=== PATIENT | female | born 1930 | race Two or more races ===

== ENCOUNTER 2017-04-20 20:47 | Inpatient (IN) | payer MEDICARE, MEDICAID ==
[~2017-04-20] VITALS: Ht 165.1 cm; Wt 59.0 kg
[~2017-04-20 20:47] MED LIST: ALBUTEROL SULF8.5 GM INH; METFORMIN HCL1000 M1 ORAL; ZITHROMAX250 MG ORAL
[2017-04-20] MEDS ORDERED: Acetaminophen 650 MG SUPP RECTAL ONE (21:15)
[2017-04-20] MEDS ORDERED: Tubing IV Cassette IV ONE (21:22)
[2017-04-20 21:41] LABS: HEMATOCRIT 34.6 % (37.0-47.0); HEMOGLOBIN 11.5 G/DL (12.0-16.0); MEAN CORPUSCULAR VOLUME 90 FL (80-99); PLATELET COUNT 89 K/UL (150-450); RED BLOOD COUNT 3.85 M/UL (4.20-5.40); RED CELL DISTRIBUTION WIDTH 16.4 % (11.6-14.8); WHITE BLOOD COUNT 4.7 K/UL (4.8-10.8)
[2017-04-20 21:43] LABS: BASOPHILS % (AUTO) 0.4 % (0.0-2.0); EOSINOPHILS % (AUTO) 0.1 % (0.0-3.0); MONOCYTES % (AUTO) 6.2 % (1.0-10.0); NEUTROPHILS % (AUTO) 86.3 % (45.0-75.0)
--- NOTE | 2017-04-20 21:57 | Emergency Room Report ---
History of Present Illness General Chief Complaint: Vomiting Source: Family Member, EMS Present Illness HPI The patient presents with vomiting. She's been ill for several days. She also complains about some abdominal pain. She is a poor historian and there is a language. Her. The daughters are translating. He can she's had a fever. She is in a rehabilitation facility. Chest seizures several months ago and had a cervical spine fracture. The seizure happened after she was given antibiotics for urinary tract infection. The daughter states that she's also been coughing. They deny any foul-smelling urine or diarrhea. They state that her neck pain has been better recently. The patient has a history of breast cancer postresection with some swelling in her right arm. 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 Is on dilantin for seizures and decadron. Also received lovenox injections at home. Allergies: Coded Allergies: LATEX (Verified Allergy, Unknown, 04/20/17) Patient History Past Medical History: see triage record Social History Narrative at home Last Menstrual Period: n/a Now: No Reviewed Nursing Documentation: PMH: Agreed, PSxH: Agreed Nursing Documentation-PMH Past Medical History: No History, Except For Hx Hypertension: Yes Hx Asthma: Yes Hx Diabetes: Yes Hx Seizures: Yes Review of Systems All Other Systems: negative except mentioned in HPI Physical Exam Vital Signs Date Time Temp Pulse Resp B/P (MAP) Pulse Ox O2 Delivery O2 Flow Rate FiO2 04/20/17 20:50 100.8 92 16 98/49 96 Room Air Sp02 EP Interpretation: reviewed, normal General Appearance: no apparent distress, GCS 15 - accorind to daughter - though sparse answers, Chronically Ill Head: normocephalic Eyes: bilateral eye normal inspection, bilateral eye PERRL ENT: moist mucus membranes Neck: supple - though cervical collar on, no bony tend Respiratory: lungs clear, normal breath sounds Cardiovascular #1: regular rate, rhythm Cardiovascular #2: 2+ radial (R) Gastrointestinal: normal inspection, normal bowel sounds, no mass, non- distended, guarding, tenderness - LLQ and more diffusely Genitourinary: no CVA tenderness Musculoskeletal: normal range of motion, no calf tenderness, swelling - R arm Neurologic: responsive, motor strength/tone normal, sensory intact Psychiatric: depressed affect Skin: warm/dry, other - sl edema R arm Medical Decision Making Diagnostic Impression: Primary Impression: Abdominal pain Qualified Codes: R10.9 - Unspecified abdominal pain Additional Impressions: UTI (urinary tract infection) Qualified Codes: N39.0 - Urinary tract infection, site not specified Metastatic breast cancer Vomiting Qualified Codes: R11.2 - Nausea with vomiting, unspecified Ureteral stricture Renal insufficiency ER Course The patient presents with vomiting, cough and fever. Differential includes diverticulitis, gastroenteritis, pneumonia, urinary tract infection amongst others. The patient's blood pressure initially is low and she will receive IV hydration immediately. Evaluation will be for sepsis. She will receive an EKG , chest x-ray and a CT abdomen and pelvis. Labs will be obtained including a lactate and blood cultures. A [place] will be passed to measure intake and output. The patient will receive IV hydration and Tylenol. She'll also receive Zofran. Initial low blood pressure reported as error. EKG shows sinus tachycardia. Chest x-ray shows increased weeks bilaterally and evidence of previous right wrist surgery. Labs are significant for normal white count and H&H. There's renal insufficiency of the last creatinine we have is from 5 years ago. This pyuria with hematuria. Dilantin level is low. Based on the creatinine CT was changed and IV contrast was canceled. Based on the evaluation that she's been on steroids in the past cortisol was given IV. Also the patient continue with IV hydration. Her tachycardia resolved as well as her fever. She was more comfortable. IV Rocephin was begun. CT scan showed evidence of ureteral stricture L. The patient is admitted to the hospital under the care of Dr. Mixon to a telemetry bed. Laboratory Tests Test 04/20/17 21:15 04/20/17 21:50 White Blood Count 4.7 K/UL (4.8-10.8) L Red Blood Count 3.85 M/UL (4.20-5.40) L Hemoglobin 11.5 G/DL (12.0-16.0) L Hematocrit 34.6 % (37.0-47.0) L Mean Corpuscular Volume 90 FL (80-99) Mean Corpuscular Hemoglobin 29.7 PG (27.0-31.0) Mean Corpuscular Hemoglobin Concent 33.1 G/DL (32.0-36.0) Red Cell Distribution Width 16.4 % (11.6-14.8) H Platelet Count 89 K/UL (150-450) L Mean Platelet Volume 6.7 FL (6.5-10.1) Neutrophils (%) (Auto) 86.3 % (45.0-75.0) H Lymphocytes (%) (Auto) 7.0 % (20.0-45.0) L Monocytes (%) (Auto) 6.2 % (1.0-10.0) Eosinophils (%) (Auto) 0.1 % (0.0-3.0) Basophils (%) (Auto) 0.4 % (0.0-2.0) Prothrombin Time 10.2 SEC (9.30-11.50) Prothrombin Time INR 1.0 (0.9-1.1) PTT 38 SEC (23-33) H Sodium Level 129 MMOL/L (136-145) L Potassium Level 5.1 MMOL/L (3.5-5.1) Chloride Level 99 MMOL/L (98-107) Carbon Dioxide Level 18 MMOL/L (21-32) L Anion Gap 12 mmol/L (5-15) Blood Urea Nitrogen 53 mg/dL (7-18) H Creatinine 2.3 MG/DL (0.55-1.30) H Estimate Glomerular Filtration Rate mL/min (>60) Glucose Level 238 MG/DL (74-106) H Lactic Acid Level 2.00 mmol/L (0.66-2.22) Calcium Level 8.6 MG/DL (8.5-10.1) Total Bilirubin 0.4 MG/DL (0.2-1.0) Aspartate Amino Transferase (AST) 25 U/L (15-37) Alanine Aminotransferase (ALT) 25 U/L (12-78) Alkaline Phosphatase 74 U/L (46-116) Total Creatine Kinase 87 U/L (26-308) Troponin I 0.004 ng/mL (0.000-0.056) Pro-B-Type Natriuretic Peptide 3695 pg/mL (0-125) H Total Protein 6.9 G/DL (6.4-8.2) Albumin 2.4 G/DL (3.4-5.0) L Globulin 4.5 g/dL Albumin/Globulin Ratio 0.5 (1.0-2.7) L Lipase 112 U/L (73-393) Phenytoin (Dilantin) Level 8.2 ug/mL (10-20) L Urine Color Yellow Urine Appearance Cloudy Urine pH 5 (4.5-8.0) Urine Specific [place] 1.015 (1.005-1.035) Urine Protein 3+ (NEGATIVE) H Urine Glucose (UA) Negative (NEGATIVE) Urine Ketones Negative (NEGATIVE) Urine Occult Blood 3+ (NEGATIVE) H Urine Nitrite Negative (NEGATIVE) Urine Bilirubin Negative (NEGATIVE) Urine Urobilinogen Normal MG/DL (0.0-1.0) Urine Leukocyte Esterase 3+ (NEGATIVE) H Urine RBC 0-2 /HPF (0 - 2) Urine WBC 20-30 /HPF (0 - 2) H Urine Squamous Epithelial Cells Occasional /LPF Urine Bacteria Many /HPF (NONE) H EKG Diagnostic Results Rate: tachycardiac ST Segments: no acute changes Rhythm Strip Diag. 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 No hydroureter or stone in the collecting system. These findings suggest pelvo- ureteral junction stricture. Small hiatal hernia. Mild colonic diverticulosis. Normal appendix. Sclerotic changes of the right sacrum. Differential includes Paget's disease, fibrous dysplasia, less likely etiologies cannot be excluded. Osteopenia. Moderate degenerative changes of visualized osseous structures. Small hiatal hernia. Circumferential wall thickening of the distal esophagus was nonspecific. Gastric reflux disease and esophagitis cannot be excluded. Hypodensity in the left lobe of the liver. Cannot be fully characterize due to lack of contrast. Likely cyst or hemangioma. Small calcified exophytic uterine fibroid. Last Vital Signs Date Time Temp Pulse Resp B/P (MAP) Pulse Ox O2 Delivery O2 Flow Rate FiO2 04/21/17 08:00 97.0 100 22 114/56 100 Room Air Status: improved Disposition: ADMITTED INPATIENT Condition: Serious Fadi Mederos M.D. Apr 20, 2017 21:57
[2017-04-20 21:58] LABS: ANION GAP 12 mmol/L (5-15); BLOOD UREA NITROGEN 53 mg/dL (7-18); CALCIUM 8.6 MG/DL (8.5-10.1); CARBON DIOXIDE 18 MMOL/L (21-32); CHLORIDE 99 MMOL/L (98-107); CREATININE 2.3 MG/DL (0.55-1.30); POTASSIUM 5.1 MMOL/L (3.5-5.1); SODIUM 129 MMOL/L (136-145)
[2017-04-20 22:09] LABS: ALANINE AMINOTRANSFERASE 25 U/L (12-78); ALBUMIN 2.4 G/DL (3.4-5.0); ALBUMIN/GLOBULIN RATIO 0.5 (1.0-2.7); ALKALINE PHOSPHATASE 74 U/L (46-116); ASPARTATE AMINO TRANSFERASE 25 U/L (15-37); BILIRUBIN,TOTAL 0.4 MG/DL (0.2-1.0); CREATINE KINASE 87 U/L (26-308)
[2017-04-20 22:10] LABS: APPEARANCE,URINE CLOUDY; BILIRUBIN, URINE NEGATIVE (NEGATIVE); COLOR,URINE YELLOW; GLUCOSE, URINE (UA) NEGATIVE (NEGATIVE); KETONES,URINE NEGATIVE (NEGATIVE); LEUKOCYTE ESTERASE ,URINE 3+ (NEGATIVE); NITRITE,URINE NEGATIVE (NEGATIVE); PH,URINE 5 (4.5-8.0); PROTEIN,URINE 3+ (NEGATIVE); UROBILINOGEN,URINE NORMAL MG/DL (0.0-1.0)
[2017-04-20] MEDS ORDERED: Hydrocortisone 100mg Inj IV ONE (22:15)
[2017-04-20 22:31] VITALS: BP 122/69
[2017-04-20] MEDS ORDERED: cefTRIAXone 1 GM in NS 55 ML IVPB ONE (23:15)
[2017-04-20] MEDS ORDERED: GABAPENTIN100 MG ORAL (23:53)
[2017-04-20] MEDS ORDERED: PAROXETINE HC12.5 MG ORAL (23:53)
[2017-04-20] MEDS ORDERED: TRAMADOL HCL50 MG ORAL (23:53)
[2017-04-20] MEDS ORDERED: ZOFRAN8 MG ORAL (23:53)
[2017-04-20] MEDS ORDERED: METFORMIN HCL500 M1 ORAL (23:53)
[2017-04-20] MEDS ORDERED: PHENYTOIN SODI100 MG ORAL (23:53)
[2017-04-20] MEDS ORDERED: LOVENOX10 M1 SUBQ (23:53)
[2017-04-21 00:50] VITALS: BP 91/46
[2017-04-21] MEDS ORDERED: Phenytoin 100mg cap ORAL SCH (03:30)
[2017-04-21] MEDS ORDERED: traMADol 50mg tab ORAL PRN ×2 (03:30→04:15)
[2017-04-21 04:00] VITALS: BP 98/49
[2017-04-21] MEDS: NovoLOG Insulin Flexpen SUBQ SCH ×3 (06:55→21:17)
[2017-04-21 08:00] VITALS: BP 114/56
--- NOTE | 2017-04-21 08:03 | Consultation ---
History of Present Illness General Date patient seen: Apr 21, 2017 Time patient seen: 07:30 Chief Complaint: Vomiting Referring physician: dr Mixon Reason for Consultation: inpatient management Present Illness HPI 87 y/old female with PMH of metastatic breast Ca, HTN, DM, seizure disorder, anemia, presented with vomiting. per family and a caregiver, the patient was sick for few days with fever, chills, abdominal discomfort also reported cough, productive with yellow phlegm, no wheezing, no hemoptysis Patient on chemo for metastic breast Ca ( mets to brain), last chemo about a month ago Workup in ED revealed low grade fever-100.8, tachy-105, borderline hypotension ECG with ST no acute ischemic changes troponin negative , no leukocytosis, lactic acid-2.0 evidence of renal insufficiency with BUN- 53 and creat-2. glucose -238 UA grossly positive for UTI r CXR with bilateral interstitial disease, possible acute component pro BNP -3695 HH -11.5/34.6 CT A/P revealed Hypodense lesion in the left lower liver, difficult to characterize without IV contrast material. Dilated pelvis and calyces of the lower pole the left kidney. This was consistent with obstruction but with no calculi, may represent a ureteropelvic junction obstruction of the lower pole of a duplicated system. Reflux was also possible as an etiology Sclerosis of the right side of the sacrum. Possibilities include Padget's disease, fibrous dysplasia, or malignancy. Bone scan may be helpful for better evaluation. patient was admitted for further management Allergies: Coded Allergies: LATEX (Verified Allergy, Unknown, 04/20/17) Medication History Scheduled Enoxaparin* (Lovenox*), 60 MG SUBQ DAILY, (Reported) Gabapentin* (Gabapentin*), 100 MG ORAL BID, (Reported) Metformin Hcl* (Metformin Hcl*), 500 MG ORAL TWICE A DAY, (Reported) Paroxetine Hcl* (Paroxetine Hcl*), 20 MG ORAL DAILY, (Reported) Phenytoin Sodium Extended* (Phenytoin Sodium Extended*), 400 MG ORAL BEDTIME, ( Reported) Scheduled PRN Ondansetron Hcl* (Zofran*), 8 MG ORAL Q6H PRN for Nausea & Vomiting, (Reported) Tramadol Hcl* (Ultram*), 50 MG ORAL BID PRN for For Pain, (Reported) Discontinued Medications Albuterol Sulfate* (Albuterol Sulfate Mdi*), 2 PUFF INH Q4H Discontinued Reason: Pt stopped taking med Azithromycin* (Zithromax*), 250 MG ORAL DAILY Discontinued Reason: Pt stopped taking med Metformin Hcl* (Metformin Hcl*), 1,000 MG ORAL BID, (Reported) Discontinued Reason: Pt stopped taking med Patient History History Provided By: Family Member, Significant Other Healthcare decision maker Resuscitation status Full Code Advanced Directive on File Past Medical/Surgical History Past Medical/Surgical History: (1) Metastatic breast cancer Review of Systems ROS Narrative unable to obtain due to patient health status Physical Exam General Appearance: no apparent distress, other - elderly bedridden shaking Farsi speaking female Lines, tubes and drains: peripheral HEENT: normocephalic, atraumatic, anicteric, mucous membranes moist Neck: supple, normal inspection Respiratory/Chest: lungs clear, no respiratory distress, no accessory muscle use Cardiovascular/Chest: normal rate, regular rhythm - SR on tele , no JVD Abdomen: normal bowel sounds, non tender, soft Extremities: no calf tenderness, normal capillary refill Skin Exam: other - cold fingers Neurologic: alert Musculoskeletal: atrophy - BLE Last 24 Hour Vital Signs Date Time Temp Pulse Resp B/P (MAP) Pulse Ox O2 Delivery O2 Flow Rate FiO2 04/21/17 04:00 Room Air 04/21/17 04:00 95 04/21/17 04:00 97.2 98 18 98/49 99 04/21/17 02:19 96 04/21/17 01:40 98.4 99 23 91/46 99 Room Air 04/21/17 00:50 98.4 99 23 91/46 99 Room Air 04/20/17 22:31 100.0 105 24 122/69 99 Room Air 04/20/17 21:54 100.0 04/20/17 20:50 100.8 92 16 98/49 96 Room Air Intake and Output 04/20/17 04/21/17 19:00 07:00 Intake Total 1259 ml Output Total 1420 ml Balance -161 ml Intake IV Total 1259 ml Output Urine Total 1420 ml Laboratory Tests Test 04/20/17 21:15 04/20/17 21:50 White Blood Count 4.7 K/UL (4.8-10.8) L Red Blood Count 3.85 M/UL (4.20-5.40) L Hemoglobin 11.5 G/DL (12.0-16.0) L Hematocrit 34.6 % (37.0-47.0) L Mean Corpuscular Volume 90 FL (80-99) Mean Corpuscular Hemoglobin 29.7 PG (27.0-31.0) Mean Corpuscular Hemoglobin Concent 33.1 G/DL (32.0-36.0) Red Cell Distribution Width 16.4 % (11.6-14.8) H Platelet Count 89 K/UL (150-450) L Mean Platelet Volume 6.7 FL (6.5-10.1) Neutrophils (%) (Auto) 86.3 % (45.0-75.0) H Lymphocytes (%) (Auto) 7.0 % (20.0-45.0) L Monocytes (%) (Auto) 6.2 % (1.0-10.0) Eosinophils (%) (Auto) 0.1 % (0.0-3.0) Basophils (%) (Auto) 0.4 % (0.0-2.0) Prothrombin Time 10.2 SEC (9.30-11.50) Prothromb Time International Ratio 1.0 (0.9-1.1) Activated Partial Thromboplast Time 38 SEC (23-33) H Sodium Level 129 MMOL/L (136-145) L Potassium Level 5.1 MMOL/L (3.5-5.1) Chloride Level 99 MMOL/L (98-107) Carbon Dioxide Level 18 MMOL/L (21-32) L Anion Gap 12 mmol/L (5-15) Blood Urea Nitrogen 53 mg/dL (7-18) H Creatinine 2.3 MG/DL (0.55-1.30) H Estimat Glomerular Filtration Rate mL/min (>60) Glucose Level 238 MG/DL (74-106) H Lactic Acid Level 2.00 mmol/L (0.66-2.22) Calcium Level 8.6 MG/DL (8.5-10.1) Total Bilirubin 0.4 MG/DL (0.2-1.0) Aspartate Amino Transf (AST/SGOT) 25 U/L (15-37) Alanine Aminotransferase (ALT/SGPT) 25 U/L (12-78) Alkaline Phosphatase 74 U/L (46-116) Total Creatine Kinase 87 U/L (26-308) Troponin I 0.004 ng/mL (0.000-0.056) Pro-B-Type Natriuretic Peptide 3695 pg/mL (0-125) H Total Protein 6.9 G/DL (6.4-8.2) Albumin 2.4 G/DL (3.4-5.0) L Globulin 4.5 g/dL Albumin/Globulin Ratio 0.5 (1.0-2.7) L Lipase 112 U/L (73-393) Phenytoin (Dilantin) Level 8.2 ug/mL (10-20) L Urine Color Yellow Urine Appearance Cloudy Urine pH 5 (4.5-8.0) Urine Specific [place] 1.015 (1.005-1.035) Urine Protein 3+ (NEGATIVE) H Urine Glucose (UA) Negative (NEGATIVE) Urine Ketones Negative (NEGATIVE) Urine Occult Blood 3+ (NEGATIVE) H Urine Nitrite Negative (NEGATIVE) Urine Bilirubin Negative (NEGATIVE) Urine Urobilinogen Normal MG/DL (0.0-1.0) Urine Leukocyte Esterase 3+ (NEGATIVE) H Urine RBC 0-2 /HPF (0 - 2) Urine WBC 20-30 /HPF (0 - 2) H Urine Squamous Epithelial Cells Occasional /LPF Urine Bacteria Many /HPF (NONE) H Height (Feet): 5 Height (Inches): 5.00 Weight (Pounds): 130 Medications Current Medications Medications (Trade) Dose Ordered Sig/Stefan Route PRN Reason Start Time Stop Time Status Last Admin Dose Admin Acetaminophen (Tylenol) 650 mg Q6H PRN ORAL Mild Pain/Temp > 100.5 04/21/17 03:30 05/21/17 03:29 Ceftriaxone Sodium 1 gm/ Dextrose 55 ml @ 110 mls/hr Q24H IVPB 04/21/17 21:00 04/28/17 20:59 Dextrose (Dextrose 50%) STAT PRN IV Hypoglycemia 04/21/17 03:45 05/21/17 03:44 Enoxaparin Sodium (Lovenox) 60 mg DAILY SUBQ 04/21/17 09:00 05/21/17 08:59 Gabapentin (Neurontin) 100 mg BID ORAL 04/21/17 09:00 05/21/17 08:59 Insulin Aspart (NovoLOG) BEFORE MEALS AND HS SUBQ 04/21/17 06:30 05/21/17 06:29 04/21/17 06:55 Metformin HCl (Glucophage) 500 mg TWICE A DAY ORAL 04/21/17 09:00 05/21/17 08:59 UNV Ondansetron HCl (Zofran) 4 mg Q6H PRN IVP Nausea & Vomiting 04/21/17 03:30 05/21/17 03:29 Paroxetine HCl (Paxil) 20 mg DAILY ORAL 04/21/17 09:00 05/21/17 08:59 Phenytoin (Dilantin) 400 mg BEDTIME ORAL 04/21/17 03:30 05/21/17 03:29 04/21/17 04:17 Sodium Chloride 1,000 ml @ 75 mls/hr [id number] IV 04/21/17 03:30 05/21/17 03:29 04/21/17 04:17 Tramadol HCl (Ultram) 50 mg Q4HR PRN ORAL Moderate Breakthru Pain (5-7) 04/21/17 04:15 04/28/17 04:14 Assessment/Plan Assessment/Plan ASSESSMENT possible sepsis UTI ureteral/ureteropelvic junction obstruction hyponatremia LIYAH vs CRI possible dehydration due to intractable vomiting seizure disorder metastatic breast Ca with emets to brain DM hypotension with hx of HTN anemia left lobe liver lesion sclerosis of sacrum PLAN OF CARE tele IVF empiric abx fup with cx ID consult-per MD discretion monitor renal parameters, lytes, correct as needed avoid nephrotoxic hypo Na possibly due to dehydration ?LIYAH vs ? CRI ( due to HTN and DM) seizure precautions, continue Dilantin PT/OT DVT prophylaxis BP monitor, no need for a/HTN at this time BS management with SS of insulin ( hold metformin due to elevated creat) Bowel regimen monitor HH, if trend down, initiate anemia work up renal US consider urology eval - per PMD ? bone scan - per PMD discretion diet as tolerated, a/emetic prn DVT , GI prophylaxis PT/OT transfer to [facility] floor case discussed and evaluated by supervising physician Sascha (Saranrodolfo),Betsy BARRAZA Apr 21, 2017 08:03
--- NOTE | 2017-04-21 08:44 | Diagnostic Imaging Report ---
Indication: Reason For Exam: ABD PAIN Technique: CT scan of the abdomen and pelvis was performed from the diaphragms to the symphysis pubis with oral contrast material. No IV contrast was administereddue to elevated creatinine. 5 mm sections were generated. Axial, coronal, and sagittal images are presented. Dose: Total Dose Length Product - DLP [address] Dose Index - CTDIvol(s) 15.47 mGy. Automated exposure control was utilized for dose reduction. Comparison: None Findings: Lack of IV contrast material limits evaluation. There is a focal low density lesion in the left lobe of the liver, 2 measuring 19 mm. This is difficult to characterize without contrast material. The remainder of the liver is unremarkable. The gallbladder is normal. The spleen is normal. The pancreas is unremarkable. There is some enlargement of the left adrenal gland slightly. Right adrenal gland is normal. Aorta is calcified. Retroperitoneum is free of adenopathy. The right kidney is unremarkable. Left kidney demonstrates a large extrarenal pelvis of the lower portion of a duplicated collecting system. Dilated calyces are also present in the lower pole. The upper pole is normal. The appendix is normal. There are colonic diverticula. The bladder is collapsed by [place] catheter. There is a calcified fibroid in the uterus. No pelvic fluid. Degenerative changes noted in the spine. A hiatal hernia. There is sclerosis in the right side of the sacrum. Impression: Hypodense lesion in the left lower liver, difficult to characterize without IV contrast material. Correlation with ultrasound suggested. Lateral hernia. Degenerative changes in the spine. Dilated pelvis and calyces of the lower pole the left kidney. This is consistent with obstruction but with no calculi, this may represent a ureteropelvic junction obstruction of the lower pole of a duplicated system. Reflux is also possible as an etiology if it is a complete duplication. Calcified fibroid uterus. Sclerosis of the right side of the sacrum. Possibilities include Padget's disease, fibrous dysplasia, or malignancy. Bone scan may be helpful for better evaluation. The above report is concordant with preliminary reading by [employer] . The CT scanner at [facility] is accredited by the [employer] and the scans are performed using protocols designed to limit radiation exposure to as low as reasonably achievable to attain images of sufficient resolution adequate for diagnostic evaluation.
[2017-04-21] MEDS ORDERED: metFORMIN 500mg tab ORAL SCH (09:00)
[2017-04-21] MEDS ORDERED: PARoxetine 20mg tab ORAL SCH (09:00)
[2017-04-21] MEDS ORDERED: Enoxaparin 60mg Inj SUBQ SCH (09:00)
--- NOTE | 2017-04-21 09:27 | Diagnostic Imaging Report ---
Indication: Reason For Exam: ABD PAIN Technique: XRAY Chest 1v Comparison:08/30/2013 Findings: The heart is normal in size. The aorta is calcified. Bilateral interstitial disease and bronchial wall thickening is noted. No pleural fluid. Pulmonary vascularity is normal. Degenerative changes present in the spine. Clips are noted in the right axilla from previous surgery. Impression: Bilateral interstitial disease. Some of this is chronic. Whether there is an acute component or merely progressive chronic disease is uncertain. Atherosclerotic change. Previous surgery on the right. Degenerative changes in the spine.
[2017-04-21 12:00] VITALS: BP 110/46
[2017-04-21] MEDS ORDERED: Sodium Chloride 500ML 550 ML IV SCH (12:30)
--- NOTE | 2017-04-21 12:35 | History & Physical ---
History and Physical History & Physicial Dictated for Int Med-Dr Mixon no. [id number]. HAMLET AMAYA Apr 21, 2017 12:35
[2017-04-21 13:39] LABS: HEMOGLOBIN 10.5 G/DL (12.0-16.0); MEAN CORPUSCULAR VOLUME 91 FL (80-99); PLATELET COUNT 79 K/UL (150-450); RED BLOOD COUNT 3.51 M/UL (4.20-5.40); RED CELL DISTRIBUTION WIDTH 16.8 % (11.6-14.8); WHITE BLOOD COUNT 4.9 K/UL (4.8-10.8)
--- NOTE | 2017-04-21 13:46 | Cardiac Electrophysiology PN ---
Subjective Subjective [id number] Objective Last 24 Hour Vital Signs Date Time Temp Pulse Resp B/P (MAP) Pulse Ox O2 Delivery O2 Flow Rate FiO2 04/21/17 12:00 97.6 101 21 110/46 97 Room Air 04/21/17 08:00 97 04/21/17 08:00 97.0 100 22 114/56 100 Room Air 04/21/17 04:00 Room Air 04/21/17 04:00 95 04/21/17 04:00 97.2 98 18 98/49 99 04/21/17 02:19 96 04/21/17 01:40 98.4 99 23 91/46 99 Room Air 04/21/17 00:50 98.4 99 23 91/46 99 Room Air 04/20/17 22:31 100.0 105 24 122/69 99 Room Air 04/20/17 21:54 100.0 04/20/17 20:50 100.8 92 16 98/49 96 Room Air Intake and Output 04/20/17 04/21/17 19:00 07:00 Intake Total 1259 ml Output Total 1420 ml Balance -161 ml Intake IV Total 1259 ml Output Urine Total 1420 ml Laboratory Tests Test 04/20/17 21:15 04/20/17 21:50 04/21/17 13:15 White Blood Count 4.7 K/UL (4.8-10.8) L 4.9 K/UL (4.8-10.8) Red Blood Count 3.85 M/UL (4.20-5.40) L 3.51 M/UL (4.20-5.40) L Hemoglobin 11.5 G/DL (12.0-16.0) L 10.5 G/DL (12.0-16.0) L Hematocrit 34.6 % (37.0-47.0) L 32.0 % (37.0-47.0) L Mean Corpuscular Volume 90 FL (80-99) 91 FL (80-99) Mean Corpuscular Hemoglobin 29.7 PG (27.0-31.0) 30.0 PG (27.0-31.0) Mean Corpuscular Hemoglobin Concent 33.1 G/DL (32.0-36.0) 32.9 G/DL (32.0-36.0) Red Cell Distribution Width 16.4 % (11.6-14.8) H 16.8 % (11.6-14.8) H Platelet Count 89 K/UL (150-450) L 79 K/UL (150-450) L Mean Platelet Volume 6.7 FL (6.5-10.1) 7.5 FL (6.5-10.1) Neutrophils (%) (Auto) 86.3 % (45.0-75.0) H % (45.0-75.0) Lymphocytes (%) (Auto) 7.0 % (20.0-45.0) L % (20.0-45.0) Monocytes (%) (Auto) 6.2 % (1.0-10.0) % (1.0-10.0) Eosinophils (%) (Auto) 0.1 % (0.0-3.0) % (0.0-3.0) Basophils (%) (Auto) 0.4 % (0.0-2.0) % (0.0-2.0) Prothrombin Time 10.2 SEC (9.30-11.50) Prothromb Time International Ratio 1.0 (0.9-1.1) Activated Partial Thromboplast Time 38 SEC (23-33) H Sodium Level 129 MMOL/L (136-145) L Potassium Level 5.1 MMOL/L (3.5-5.1) Chloride Level 99 MMOL/L (98-107) Carbon Dioxide Level 18 MMOL/L (21-32) L Anion Gap 12 mmol/L (5-15) Blood Urea Nitrogen 53 mg/dL (7-18) H Creatinine 2.3 MG/DL (0.55-1.30) H Estimat Glomerular Filtration Rate mL/min (>60) Glucose Level 238 MG/DL (74-106) H Lactic Acid Level 2.00 mmol/L (0.66-2.22) Calcium Level 8.6 MG/DL (8.5-10.1) Total Bilirubin 0.4 MG/DL (0.2-1.0) Aspartate Amino Transf (AST/SGOT) 25 U/L (15-37) Alanine Aminotransferase (ALT/SGPT) 25 U/L (12-78) Alkaline Phosphatase 74 U/L (46-116) Total Creatine Kinase 87 U/L (26-308) Troponin I 0.004 ng/mL (0.000-0.056) Pro-B-Type Natriuretic Peptide 3695 pg/mL (0-125) H Total Protein 6.9 G/DL (6.4-8.2) Albumin 2.4 G/DL (3.4-5.0) L Globulin 4.5 g/dL Albumin/Globulin Ratio 0.5 (1.0-2.7) L Lipase 112 U/L (73-393) Phenytoin (Dilantin) Level 8.2 ug/mL (10-20) L Urine Color Yellow Urine Appearance Cloudy Urine pH 5 (4.5-8.0) Urine Specific [place] 1.015 (1.005-1.035) Urine Protein 3+ (NEGATIVE) H Urine Glucose (UA) Negative (NEGATIVE) Urine Ketones Negative (NEGATIVE) Urine Occult Blood 3+ (NEGATIVE) H Urine Nitrite Negative (NEGATIVE) Urine Bilirubin Negative (NEGATIVE) Urine Urobilinogen Normal MG/DL (0.0-1.0) Urine Leukocyte Esterase 3+ (NEGATIVE) H Urine RBC 0-2 /HPF (0 - 2) Urine WBC 20-30 /HPF (0 - 2) H Urine Squamous Epithelial Cells Occasional /LPF Urine Bacteria Many /HPF (NONE) H Neutrophils % (Manual) Pending Lymphocytes % (Manual) Pending Platelet Estimate Pending Platelet Morphology Pending Microbiology Date/Time Source Procedure Growth Status 04/20/17 21:50 Urine,Clean Catch Urine Culture - Preliminary Gram Negative Andrew Resulted PENELOPE CORONA Apr 21, 2017 13:46
[2017-04-21 14:06] LABS: ALANINE AMINOTRANSFERASE 19 U/L (12-78); ALBUMIN 2.1 G/DL (3.4-5.0); ALBUMIN/GLOBULIN RATIO 0.5 (1.0-2.7); ALKALINE PHOSPHATASE 65 U/L (46-116); ANION GAP 11 mmol/L (5-15); ASPARTATE AMINO TRANSFERASE 22 U/L (15-37); BILIRUBIN,TOTAL 0.2 MG/DL (0.2-1.0); BLOOD UREA NITROGEN 44 mg/dL (7-18); CALCIUM 8.1 MG/DL (8.5-10.1); CARBON DIOXIDE 20 MMOL/L (21-32); CHLORIDE 106 MMOL/L (98-107); CREATININE 1.8 MG/DL (0.55-1.30); PHOSPHORUS 3.4 MG/DL (2.5-4.9); POTASSIUM 5.1 MMOL/L (3.5-5.1); SODIUM 137 MMOL/L (136-145)
[2017-04-21 16:00] VITALS: BP 113/67
--- NOTE | 2017-04-21 16:36 | Consultation ---
Consult Note Consult Note asked to eval for renal failure The patient presents with vomiting. She's been ill for several days. She also complains about some abdominal pain. She is a poor historian and there is a language. Her. The daughters are translating. He can she's had a fever. She is in a rehabilitation facility. Chest seizures several months ago and had a cervical spine fracture. The seizure happened after she was given antibiotics for urinary tract infection. The daughter states that she's also been coughing. They deny any foul-smelling urine or diarrhea. They state that her neck pain has been better recently. The patient has a history of breast cancer postresection with some swelling in her right arm. She has brain metastasis from that. 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
[2017-04-21 20:00] VITALS: BP 123/57
[2017-04-21] MEDS ORDERED: cefTRIAXone 1 GM in D5W 55 ML IVPB SCH (21:00)
--- NOTE | 2017-04-21 21:00 | Consultation ---
DATE OF CONSULTATION: 04/21/2017 CARDIOLOGY CONSULTATION CONSULTING PHYSICIAN: Aime Tripp M.D. REFERRING PHYSICIAN: Keon Mixon M.D. REASON FOR CONSULTATION: Tachycardia. HISTORY OF PRESENT ILLNESS: The patient is an 87-year-old [place] lady with history of hypertension, diabetes, asthma, and seizure disorder, who was brought to the emergency room for vomiting and feeling ill for several days including abdominal pain. The patient is in a rehab facility. The patient had a seizure and had cervical spine fracture months ago. The patient was admitted and was tachycardic at 100 to 113 beats per minute, but sinus tachycardia. Cardiology consultation was obtained for further evaluation. PAST MEDICAL HISTORY: As mentioned above. SOCIAL HISTORY: She lives in a alf. Does not smoke or drink alcohol. FAMILY HISTORY: Noncontributory. REVIEW OF SYSTEMS: Negative other than what was mentioned in the history of present illness. PHYSICAL EXAMINATION: VITAL SIGNS: Blood pressure is 110/46, pulse 101, respirations 21, and temperature 97.6 degrees. HEAD AND NECK: Shows no JVD. LUNGS: Coarse rhonchi. CARDIOVASCULAR: Regular S1 and S2. Mildly tachycardic. ABDOMEN: Soft. EXTREMITIES: No pitting edema. LABORATORY DATA: White count of 4.9, hemoglobin 10.5, hematocrit 32, and platelet count of 79,000. Sodium 129, potassium 5.1, BUN of 53, creatinine 2.3, and glucose of 280. Troponin is negative. BNP 3695. ASSESSMENT AND PLAN: 1. Tachycardia due to sinus tachycardia. There is no evidence of atrial fibrillation. We will get an echocardiogram to evaluate for ejection fraction and wall motion abnormality. 2. History of hypertension, currently off antihypertensive agents. 3. History of seizures, on Neurontin. 4. Renal failure. 5. Hyponatremia. Further evaluation by Nephrology. Thank you very much, Dr. Mixon, for allowing me to participate in the care of this patient. Please do not hesitate to contact me for any questions regarding my evaluation. Aime Tripp M.D. DR: Whitney JOB#: [id number] CC:
[2017-04-21] MEDS: Phenytoin 100mg cap ORAL SCH (21:01)
[2017-04-21] MEDS: cefTRIAXone 1 GM in D5W 55 ML IVPB SCH (21:02)
--- NOTE | 2017-04-21 21:15 | History and Physical Report ---
DATE OF ADMISSION: 04/20/2017 CHIEF COMPLAINT: The patient is an 87-year-old white female who presents with chief complaint of fever, chills, nausea, vomiting, and diarrhea. HISTORY OF PRESENT ILLNESS: It began three days prior to admission. The patient began to have subjective fevers and chills. The patient has history of right breast cancer approximately 15 years ago. The patient was recently diagnosed with brain metastases. This is presumed to be recurrence of breast cancer. The patient herself is unable to contribute much to the history and physical. Much of the history and physical is obtained from the patient's caregiver who is at the bedside. I also spoke with the patient's daughter, Daljit, over the telephone. According to the daughter, the patient began to experience subjective fevers and chills on 04/19/2017. The patient then began to experience nausea and vomiting. The patient had severe decreased oral intake. The patient also had cough which is productive of brownish sputum. The patient had diarrhea starting yesterday, 04/20/2017. This may be secondary to [id number] constipation medicine that the patient had been taking. The patient presented to [facility]. The patient was found to be severely weak and debilitated. The patient was admitted for nausea, vomiting, diarrhea, and fever. PAST MEDICAL HISTORY: Significant for: 1. Right breast cancer, diagnosed 15 years previously with current metastases to the brain. 2. Diabetes, type 2. 3. Hypertension. 4. History of seizure disorder. PAST SURGICAL HISTORY: Significant for right mastectomy. CURRENT MEDICATIONS: 1. Lovenox 60 mg subcutaneously daily. 2. Gabapentin 100 mg p.o. twice daily. 3. Metformin 500 mg p.o. twice daily. 4. Zofran 4 mg p.o. q.6 h. 5. Paxil 20 mg p.o. daily. 6. Dilantin 400 mg p.o. nightly. 7. Tramadol 50 mg p.o. twice daily p.r.n. ALLERGIES: To latex. SOCIAL HISTORY: The patient is and lives with her family. The patient denies tobacco or alcohol use. REVIEW OF SYSTEMS: CONSTITUTIONAL: The patient complains of fevers and chills as above. The patient complains of generalized weakness. HEENT: The patient denies ear or throat pain. The patient denies headache. CARDIOVASCULAR: The patient denies palpitations or chest pain. CHEST: The patient complains of cough as above. The patient denies wheezes. ABDOMEN: The patient complains of nausea, vomiting, and diarrhea as above. The patient denies constipation. NEUROMUSCULAR: The patient complains of generalized weakness. The patient has history of seizures. GENITOURINARY: The patient denies dysuria. The patient does complain of urinary obstruction. PHYSICAL EXAMINATION: VITAL SIGNS: Temperature 98.4, respirations 23, pulse 99, and blood pressure 91/46. GENERAL: The patient is a well-developed, well-nourished white female, who is drowsy, but arousable. HEENT: Eyes, pupils are equal and responsive to light and accommodation. Extraocular movements are intact. NECK: Supple without lymphadenopathy. CHEST: Lungs are clear to auscultation bilaterally without wheezes or rales. CARDIOVASCULAR: Regular rate. S1 and S2 are normal without murmurs, rubs, or gallops. ABDOMEN: Soft, nontender, nondistended. Positive bowel sounds. No evidence of hepatosplenomegaly. Currently, no rebound or guarding noted. RECTAL: Refused. GENITAL: Refused. EXTREMITIES: Negative for clubbing, cyanosis, or edema. NEUROLOGIC: Cranial nerves II through XII are grossly intact without focal deficits. LABORATORY STUDIES: WBC 4.7, hemoglobin 11.5, hematocrit 34.6, and platelets 89,000. Sodium 129, potassium 5.1, chloride 99, CO2 18, BUN 53, creatinine 2.3, and glucose 238. BNP elevated at 3695. Troponin normal at 0.004. CT scan of the abdomen revealed dilated pelvis and calyces of the left kidney. Urinalysis showed 3+ protein, 3+ occult blood, and 3+ leukocyte esterase with 20-30 WBC. ASSESSMENT: This is an 87-year-old white female with: 1. Urinary tract infection. 2. Renal failure. 3. Left kidney hydronephrosis. 4. Congestive heart failure. 5. Abdominal pain. 6. Fever. 7. Nausea with vomiting. 8. Diabetes, type 2. 9. Seizure disorder. 10. History of right breast cancer with metastases to the brain. TREATMENT: 1. Renal failure. Nephrology consultation has been obtained with Dr. Florentino. This may be secondary to dehydration versus urinary obstruction. We will follow recommendations of Nephrology. 2. Urinary tract infection. The patient has been started empirically on Rocephin. Urine culture and sensitivity is pending. 3. Congestive heart failure. Cardiology consultation has been obtained with Dr. Aime Tripp. Congestive heart failure may be secondary to radiation therapy. 4. Abdominal pain. This is secondary to urinary tract infection as above. 5. Fevers, chills. 6. Nausea with vomiting. Gastroenterology consultation has been obtained with Dr. Escobar. 7. Diabetes, type 2. Continue NovoLog sliding scale. 8. History of seizure disorder. Continue Dilantin as above. 9. Right breast cancer with metastases to the brain. The patient is currently undergoing radiation therapy at [facility]. Lalo Edmondson M.D. DR: Lee JOB#: [id number] CC:
[2017-04-22] VITALS: BP 106/48
[2017-04-22 04:00] VITALS: BP 101/44
[2017-04-22] MEDS: traMADol 50mg tab ORAL PRN ×2 (04:17→08:53)
[2017-04-22 04:49] LABS: HEMATOCRIT 29.9 % (37.0-47.0); HEMOGLOBIN 9.7 G/DL (12.0-16.0); MEAN CORPUSCULAR VOLUME 89 FL (80-99); PLATELET COUNT 80 K/UL (150-450); RED BLOOD COUNT 3.34 M/UL (4.20-5.40); RED CELL DISTRIBUTION WIDTH 16.7 % (11.6-14.8); WHITE BLOOD COUNT 4.2 K/UL (4.8-10.8)
[2017-04-22 05:19] LABS: ALANINE AMINOTRANSFERASE 15 U/L (12-78); ALBUMIN 1.9 G/DL (3.4-5.0); ALBUMIN/GLOBULIN RATIO 0.5 (1.0-2.7); ALKALINE PHOSPHATASE 59 U/L (46-116); ANION GAP 10 mmol/L (5-15); ASPARTATE AMINO TRANSFERASE 17 U/L (15-37); BILIRUBIN,TOTAL 0.3 MG/DL (0.2-1.0); BLOOD UREA NITROGEN 30 mg/dL (7-18); CALCIUM 7.9 MG/DL (8.5-10.1); CARBON DIOXIDE 21 MMOL/L (21-32); CHLORIDE 102 MMOL/L (98-107); CREATININE 1.3 MG/DL (0.55-1.30); FERRITIN 574 NG/ML (8-388); GAMMA GLUTAMYL TRANSPEPTIDASE 51 U/L (5-85); PHOSPHORUS 2.3 MG/DL (2.5-4.9); POTASSIUM 4.4 MMOL/L (3.5-5.1); SODIUM 132 MMOL/L (136-145)
[2017-04-22] MEDS: NovoLOG Insulin Flexpen SUBQ SCH ×4 (06:18→21:00)
[2017-04-22 08:00] VITALS: BP 108/53
[2017-04-22] MEDS: Enoxaparin 60mg Inj SUBQ SCH (08:53)
[2017-04-22] MEDS ORDERED: PARoxetine 10mg tab ORAL SCH ×2 (09:00)
--- NOTE | 2017-04-22 10:12 | Pulmonology Progress Note ---
Assessment/Plan Assessment/Plan ASSESSMENT possible sepsis UTI C dif colitis L kidney hydronephrosis hyponatremia LIYAH -improving possible dehydration due to intractable vomiting seizure disorder metastatic breast Ca with emets to brain DM hypotension with hx of HTN anemia left lobe liver lesion sclerosis of sacrum PLAN OF CARE MS floor gentle IVF start Flagyl, empiric abx for UTI and fup with cx ID consult-per MD discretion monitor renal parameters, lytes, creat trending dowen correct lytes as needed ( replace Mg and P today) avoid nephrotoxic nephro follows seizure precautions, continue Dilantin PT/OT DVT prophylaxis BP monitor, no need for a/HTN at this time cardio follows troponin x 2 negative BS management with SS of insulin prn, [id number] ( hold metformin due to elevated creat) Bowel regimen monitor HH, transfuse prn, anemia work up renal US consider urology eval - per PMD ? bone scan - per PMD discretion diet as tolerated, a/emetic prn DVT , GI prophylaxis PT/OT case discussed and evaluated by supervising physician Subjective Allergies: Coded Allergies: LATEX (Verified Allergy, Unknown, 04/20/17) Subjective no chills stool cx + C dif HH trending down creat trending down more awake, smiling low Mg and P Objective Last 24 Hour Vital Signs Date Time Temp Pulse Resp B/P (MAP) Pulse Ox O2 Delivery O2 Flow Rate FiO2 04/22/17 08:00 98.2 100 18 108/53 99 Room Air 04/22/17 04:00 Room Air 04/22/17 04:00 98.4 107 18 101/44 96 04/22/17 00:00 98.2 104 20 106/48 97 04/22/17 00:00 Room Air 04/21/17 20:00 99.0 105 20 123/57 98 04/21/17 20:00 Room Air 04/21/17 16:00 97.3 114 22 113/67 97 Room Air 04/21/17 12:00 102 04/21/17 12:00 97.6 101 21 110/46 97 Room Air Intake and Output 04/21/17 04/22/17 19:00 07:00 Intake Total 890 ml 965 ml Output Total 700 ml 1200 ml Balance 190 ml -235 ml Intake Oral 240 ml 360 ml IV Total 650 ml 605 ml Output Urine Total 700 ml 1200 ml # Bowel Movements 2 2 Objective General Appearance: no apparent distress, elderly weak bedridden Farsi speaking female Lines, tubes and drains: peripheral HEENT: normocephalic, atraumatic, anicteric, mucous membranes moist Neck: supple, normal inspection Respiratory/Chest: lungs clear, no respiratory distress, no accessory muscle use Cardiovascular/Chest: normal rate, no JVD Abdomen: normal bowel sounds, non tender, soft Extremities: no calf tenderness, normal capillary refill Neurologic: alert, responsive, Musculoskeletal: atrophy - BLE Microbiology Date/Time Source Procedure Growth Status 04/20/17 21:15 Blood Blood Culture - Preliminary NO GROWTH AFTER 24 HOURS Resulted 04/20/17 21:00 Blood Blood Culture - Preliminary NO GROWTH AFTER 24 HOURS Resulted 04/21/17 18:40 Stool Clostridium difficile Toxin Assay - Final Complete 04/20/17 21:50 Urine,Clean Catch Urine Culture - Preliminary Gram Negative Andrew Resulted Laboratory Tests 04/21/17 13:15: White Blood Count 4.9, Red Blood Count 3.51L, Hemoglobin 10.5L, Hematocrit 32.0L , Mean Corpuscular Volume 91, Mean Corpuscular Hemoglobin 30.0, Mean Corpuscular Hemoglobin Concent 32.9, Red Cell Distribution Width 16.8H, Platelet Count 79L, Mean Platelet Volume 7.5, Neutrophils (%) (Auto) , Lymphocytes (%) (Auto) , Monocytes (%) (Auto) , Eosinophils (%) (Auto) , Basophils (%) (Auto) , Differential Total Cells Counted 100, Neutrophils % ( Manual) 79H, Lymphocytes % (Manual) 15L, Monocytes % (Manual) 3, Eosinophils % ( Manual) 0, Basophils % (Manual) 1, Band Neutrophils 2, Platelet Estimate DecreasedL, Platelet Morphology Normal, Hypochromasia 1+, Anisocytosis 1+, Sodium Level 137, Potassium Level 5.1, Chloride Level 106, Carbon Dioxide Level 20L, Anion Gap 11, Blood Urea Nitrogen 44H, Creatinine 1.8H, Estimat Glomerular Filtration Rate , Glucose Level 171H, Calcium Level 8.1L, Phosphorus Level 3.4, Magnesium Level 1.9, Total Bilirubin 0.2, Aspartate Amino Transf (AST/SGOT) 22, Alanine Aminotransferase (ALT/SGPT) 19, Alkaline Phosphatase 65, C-Reactive Protein, Quantitative > 70.0H, Total Protein 6.2L, Albumin 2.1L, Globulin 4.1, Albumin/Globulin Ratio 0.5L 04/22/17 04:20: White Blood Count 4.2L, Red Blood Count 3.34L, Hemoglobin 9.7L, Hematocrit 29.9L , Mean Corpuscular Volume 89, Mean Corpuscular Hemoglobin 28.9, Mean Corpuscular Hemoglobin Concent 32.4, Red Cell Distribution Width 16.7H, Platelet Count 80L, Mean Platelet Volume 6.2L, Neutrophils (%) (Auto) , Lymphocytes (%) (Auto) , Monocytes (%) (Auto) , Eosinophils (%) (Auto) , Basophils (%) (Auto) , Differential Total Cells Counted 100, Neutrophils % ( Manual) 74, Lymphocytes % (Manual) 21, Monocytes % (Manual) 5, Eosinophils % ( Manual) 0, Basophils % (Manual) 0, Band Neutrophils 0, Platelet Estimate DecreasedL, Platelet Morphology Normal, Sodium Level 132L, Potassium Level 4.4, Chloride Level 102, Carbon Dioxide Level 21, Anion Gap 10, Blood Urea Nitrogen 30H, Creatinine 1.3, Estimat Glomerular Filtration Rate , Glucose Level 165H, Calcium Level 7.9L, Phosphorus Level 2.3L, Magnesium Level 1.6L, Total Bilirubin 0.3, Aspartate Amino Transf (AST/SGOT) 17, Alanine Aminotransferase ( ALT/SGPT) 15, Alkaline Phosphatase 59, Total Protein 6.0L, Albumin 1.9L, Globulin 4.1, Albumin/Globulin Ratio 0.5L, Hemoglobin A1c 5.8, Uric Acid 5.3, Ferritin 574H, Gamma Glutamyl Transpeptidase 51, Troponin I 0.007, Pro-B-Type Natriuretic Peptide 4219H, Lipase 115, Vitamin B12 Level > 2000H, Folate 12.2, Thyroid Stimulating Hormone (TSH) 0.634, Cortisol AM Sample [Pending] 04/22/17 05:00: Urine Random Sodium 114H Current Medications Medications (Trade) Dose Ordered Sig/Stefan Route PRN Reason Start Time Stop Time Status Last Admin Dose Admin Acetaminophen (Tylenol) 650 mg Q6H PRN ORAL Mild Pain/Temp > 100.5 04/21/17 17:30 05/21/17 17:29 Ceftriaxone Sodium 1 gm/ Dextrose 55 ml @ 110 mls/hr Q24H IVPB 04/21/17 21:00 04/28/17 20:59 04/21/17 21:02 Dextrose (Dextrose 50%) STAT PRN IV Hypoglycemia 04/21/17 17:30 05/21/17 17:29 Enoxaparin Sodium (Lovenox) 60 mg DAILY SUBQ 04/22/17 09:00 05/21/17 08:59 Famotidine (Pepcid) 20 mg BID ORAL 04/21/17 18:00 05/21/17 10:29 04/22/17 08:53 Gabapentin (Neurontin) 100 mg BID ORAL 04/21/17 18:00 05/21/17 08:59 04/22/17 08:52 Insulin Aspart (NovoLOG) BEFORE MEALS AND HS SUBQ 04/21/17 21:00 05/21/17 06:29 04/22/17 06:18 Ondansetron HCl (Zofran) 4 mg Q6H PRN IVP Nausea & Vomiting 04/21/17 17:30 05/21/17 17:29 Paroxetine HCl (Paxil) 10 mg DAILY ORAL 04/22/17 09:00 05/21/17 08:59 Phenytoin (Dilantin) 400 mg BEDTIME ORAL 04/21/17 21:00 05/21/17 03:29 04/21/17 21:01 Sodium Chloride 1,000 ml @ 50 mls/hr Q20H IV 04/21/17 17:30 05/21/17 17:29 04/22/17 02:49 Tramadol HCl (Ultram) 50 mg Q4H PRN ORAL Moderate Breakthru Pain (5-7) 04/21/17 17:30 04/28/17 17:29 04/22/17 08:53 [facility]Betsy NP Apr 22, 2017 10:12
[2017-04-22 10:41] LABS: % IRON SATURATION 17 % (15-50); IRON 16 ug/dL (50-175); TOTAL IRON BINDING CAPACITY 92 ug/dL (250-450)
--- NOTE | 2017-04-22 11:36 | Nephrology Progress Note ---
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 DM HTN but hypotension on presentation left lobe liver lesion Malnutrition Plan Plan; Hydrate- done Antibiotics- avoid Nephrotoxics- Monitor renal parameters and lytes Watch H&h per orders Subjective ROS Limited/Unobtainable: No Constitutional: Reports: malaise, other - over all more responsive Objective Objective Last 24 Hour Vital Signs Date Time Temp Pulse Resp B/P (MAP) Pulse Ox O2 Delivery O2 Flow Rate FiO2 04/22/17 08:00 98.2 100 18 108/53 99 Room Air 04/22/17 04:00 Room Air 04/22/17 04:00 98.4 107 18 101/44 96 04/22/17 00:00 98.2 104 20 106/48 97 04/22/17 00:00 Room Air 04/21/17 20:00 99.0 105 20 123/57 98 04/21/17 20:00 Room Air 04/21/17 16:00 97.3 114 22 113/67 97 Room Air 04/21/17 12:00 102 04/21/17 12:00 97.6 101 21 110/46 97 Room Air Intake and Output 04/21/17 04/22/17 19:00 07:00 Intake Total 890 ml 965 ml Output Total 700 ml 1200 ml Balance 190 ml -235 ml Intake Oral 240 ml 360 ml IV Total 650 ml 605 ml Output Urine Total 700 ml 1200 ml # Bowel Movements 2 2 Laboratory Tests 04/21/17 13:15: White Blood Count 4.9, Red Blood Count 3.51L, Hemoglobin 10.5L, Hematocrit 32.0L , Mean Corpuscular Volume 91, Mean Corpuscular Hemoglobin 30.0, Mean Corpuscular Hemoglobin Concent 32.9, Red Cell Distribution Width 16.8H, Platelet Count 79L, Mean Platelet Volume 7.5, Neutrophils (%) (Auto) , Lymphocytes (%) (Auto) , Monocytes (%) (Auto) , Eosinophils (%) (Auto) , Basophils (%) (Auto) , Differential Total Cells Counted 100, Neutrophils % ( Manual) 79H, Lymphocytes % (Manual) 15L, Monocytes % (Manual) 3, Eosinophils % ( Manual) 0, Basophils % (Manual) 1, Band Neutrophils 2, Platelet Estimate DecreasedL, Platelet Morphology Normal, Hypochromasia 1+, Anisocytosis 1+, Sodium Level 137, Potassium Level 5.1, Chloride Level 106, Carbon Dioxide Level 20L, Anion Gap 11, Blood Urea Nitrogen 44H, Creatinine 1.8H, Estimat Glomerular Filtration Rate , Glucose Level 171H, Calcium Level 8.1L, Phosphorus Level 3.4, Magnesium Level 1.9, Total Bilirubin 0.2, Aspartate Amino Transf (AST/SGOT) 22, Alanine Aminotransferase (ALT/SGPT) 19, Alkaline Phosphatase 65, C-Reactive Protein, Quantitative > 70.0H, Total Protein 6.2L, Albumin 2.1L, Globulin 4.1, Albumin/Globulin Ratio 0.5L 04/22/17 04:20: White Blood Count 4.2L, Red Blood Count 3.34L, Hemoglobin 9.7L, Hematocrit 29.9L , Mean Corpuscular Volume 89, Mean Corpuscular Hemoglobin 28.9, Mean Corpuscular Hemoglobin Concent 32.4, Red Cell Distribution Width 16.7H, Platelet Count 80L, Mean Platelet Volume 6.2L, Neutrophils (%) (Auto) , Lymphocytes (%) (Auto) , Monocytes (%) (Auto) , Eosinophils (%) (Auto) , Basophils (%) (Auto) , Differential Total Cells Counted 100, Neutrophils % ( Manual) 74, Lymphocytes % (Manual) 21, Monocytes % (Manual) 5, Eosinophils % ( Manual) 0, Basophils % (Manual) 0, Band Neutrophils 0, Platelet Estimate DecreasedL, Platelet Morphology Normal, Sodium Level 132L, Potassium Level 4.4, Chloride Level 102, Carbon Dioxide Level 21, Anion Gap 10, Blood Urea Nitrogen 30H, Creatinine 1.3, Estimat Glomerular Filtration Rate , Glucose Level 165H, Calcium Level 7.9L, Phosphorus Level 2.3L, Magnesium Level 1.6L, Total Bilirubin 0.3, Aspartate Amino Transf (AST/SGOT) 17, Alanine Aminotransferase ( ALT/SGPT) 15, Alkaline Phosphatase 59, Total Protein 6.0L, Albumin 1.9L, Globulin 4.1, Albumin/Globulin Ratio 0.5L, Hemoglobin A1c 5.8, Uric Acid 5.3, Iron Level 16L, Total Iron Binding Capacity 92L, Percent Iron Saturation 17, Unsaturated Iron Binding 76L, Ferritin 574H, Gamma Glutamyl Transpeptidase 51, Troponin I 0.007, Pro-B-Type Natriuretic Peptide 4219H, Lipase 115, Vitamin B12 Level > 2000H, Folate 12.2, Thyroid Stimulating Hormone (TSH) 0.634, Cortisol AM Sample [Pending] 04/22/17 05:00: Urine Random Sodium 114H Height (Feet): 5 Height (Inches): 5.00 Weight (Pounds): 130 General Appearance: no apparent distress, agitated - at times Cardiovascular: tachycardia Respiratory/Chest: decreased breath sounds Abdomen: soft Objective no other changes TARIQ MIRZA Apr 22, 2017 11:36
[2017-04-22 12:00] VITALS: BP 113/58
[2017-04-22] MEDS: PARoxetine 10mg tab ORAL SCH (12:17)
--- NOTE | 2017-04-22 13:41 | Internal Med Progress Note ---
Subjective Date of Service: Apr 22, 2017 Physician Name Hamlet Amaya Attending Physician Keon Mixon MD Current Medications Medications (Trade) Dose Ordered Sig/Stefan Route PRN Reason Start Time Stop Time Status Last Admin Dose Admin Acetaminophen (Tylenol) 650 mg Q6H PRN ORAL Mild Pain/Temp > 100.5 04/21/17 17:30 05/21/17 17:29 Ceftriaxone Sodium 1 gm/ Dextrose 55 ml @ 110 mls/hr Q24H IVPB 04/21/17 21:00 04/28/17 20:59 04/21/17 21:02 Dextrose (Dextrose 50%) STAT PRN IV Hypoglycemia 04/21/17 17:30 05/21/17 17:29 Enoxaparin Sodium (Lovenox) 60 mg DAILY SUBQ 04/22/17 09:00 05/21/17 08:59 Famotidine (Pepcid) 20 mg BID ORAL 04/21/17 18:00 05/21/17 10:29 04/22/17 08:53 Gabapentin (Neurontin) 100 mg BID ORAL 04/21/17 18:00 05/21/17 08:59 04/22/17 08:52 Insulin Aspart (NovoLOG) BEFORE MEALS AND HS SUBQ 04/21/17 21:00 05/21/17 06:29 04/22/17 06:18 Metronidazole (Flagyl) 500 mg Q8HR ORAL 04/22/17 14:00 04/29/17 13:59 Ondansetron HCl (Zofran) 4 mg Q6H PRN IVP Nausea & Vomiting 04/21/17 17:30 05/21/17 17:29 Paroxetine HCl (Paxil) 10 mg DAILY ORAL 04/22/17 09:00 05/21/17 08:59 04/22/17 12:17 Phenytoin (Dilantin) 400 mg BEDTIME ORAL 04/21/17 21:00 05/21/17 03:29 04/21/17 21:01 Phosphorus (Phospha 250 Neutral) 250 mg THREE TIMES A DAY ORAL 04/22/17 13:00 05/22/17 12:59 Tramadol HCl (Ultram) 50 mg Q4H PRN ORAL Moderate Breakthru Pain (5-7) 04/21/17 17:30 04/28/17 17:29 04/22/17 08:53 Allergies: Coded Allergies: LATEX (Verified Allergy, Unknown, 04/20/17) ROS Limited/Unobtainable: Yes Subjective 87 YO F admitted with abdominal paina nd fever. Now UTI and sepsis. Also C.Diff positive. Cover for Int Med-Dr Delgado. Objective Last Vital Signs Date Time Temp Pulse Resp B/P (MAP) Pulse Ox O2 Delivery O2 Flow Rate FiO2 04/22/17 12:00 97.6 95 18 113/58 98 Room Air General Appearance: WD/WN, no apparent distress, alert EENT: PERRL/EOMI, normal ENT inspection, TMs normal Neck: non-tender, normal alignment, supple, normal inspection Cardiovascular: normal peripheral pulses, normal rate, regular rhythm, no gallop/murmur, no JVD Respiratory/Chest: chest wall non-tender, lungs clear, normal breath sounds, no respiratory distress, no accessory muscle use Abdomen: normal bowel sounds, soft, no organomegaly, no mass, decreased bowel sounds, tender Extremities: normal range of motion, non-tender 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 grossly normal, no motor/sensory deficits Skin: normal pigmentation, warm/dry Laboratory Tests Test 04/22/17 04:20 04/22/17 05:00 White Blood Count 4.2 K/UL (4.8-10.8) L Red Blood Count 3.34 M/UL (4.20-5.40) L Hemoglobin 9.7 G/DL (12.0-16.0) L Hematocrit 29.9 % (37.0-47.0) L Mean Corpuscular Volume 89 FL (80-99) Mean Corpuscular Hemoglobin 28.9 PG (27.0-31.0) Mean Corpuscular Hemoglobin Concent 32.4 G/DL (32.0-36.0) Red Cell Distribution Width 16.7 % (11.6-14.8) H Platelet Count 80 K/UL (150-450) L Mean Platelet Volume 6.2 FL (6.5-10.1) L Neutrophils (%) (Auto) % (45.0-75.0) Lymphocytes (%) (Auto) % (20.0-45.0) Monocytes (%) (Auto) % (1.0-10.0) Eosinophils (%) (Auto) % (0.0-3.0) Basophils (%) (Auto) % (0.0-2.0) Differential Total Cells Counted 100 Neutrophils % (Manual) 74 % (45-75) Lymphocytes % (Manual) 21 % (20-45) Monocytes % (Manual) 5 % (1-10) Eosinophils % (Manual) 0 % (0-3) Basophils % (Manual) 0 % (0-2) Band Neutrophils 0 % (0-8) Platelet Estimate Decreased L Platelet Morphology Normal Sodium Level 132 MMOL/L (136-145) L Potassium Level 4.4 MMOL/L (3.5-5.1) Chloride Level 102 MMOL/L (98-107) Carbon Dioxide Level 21 MMOL/L (21-32) Anion Gap 10 mmol/L (5-15) Blood Urea Nitrogen 30 mg/dL (7-18) H Creatinine 1.3 MG/DL (0.55-1.30) Estimat Glomerular Filtration Rate mL/min (>60) Glucose Level 165 MG/DL (74-106) H Hemoglobin A1c 5.8 % (4.3-6.0) Uric Acid 5.3 MG/DL (2.6-7.2) Calcium Level 7.9 MG/DL (8.5-10.1) L Phosphorus Level 2.3 MG/DL (2.5-4.9) L Magnesium Level 1.6 MG/DL (1.8-2.4) L Iron Level 16 ug/dL (50-175) L Total Iron Binding Capacity 92 ug/dL (250-450) L Percent Iron Saturation 17 % (15-50) Unsaturated Iron Binding 76 ug/dL (112-346) L Ferritin 574 NG/ML (8-388) H Total Bilirubin 0.3 MG/DL (0.2-1.0) Gamma Glutamyl Transpeptidase 51 U/L (5-85) Aspartate Amino Transf (AST/SGOT) 17 U/L (15-37) Alanine Aminotransferase (ALT/SGPT) 15 U/L (12-78) Alkaline Phosphatase 59 U/L (46-116) Troponin I 0.007 ng/mL (0.000-0.056) Pro-B-Type Natriuretic Peptide 4219 pg/mL (0-125) H Total Protein 6.0 G/DL (6.4-8.2) L Albumin 1.9 G/DL (3.4-5.0) L Globulin 4.1 g/dL Albumin/Globulin Ratio 0.5 (1.0-2.7) L Lipase 115 U/L (73-393) Vitamin B12 Level > 2000 PG/ML (193-986) H Folate 12.2 NG/ML (8.6-58.9) Thyroid Stimulating Hormone (TSH) 0.634 uiU/mL (0.358-3.740) Cortisol AM Sample Pending Urine Random Sodium 114 MEQ/L (20-110) H Microbiology Date/Time Source Procedure Growth Status 04/20/17 21:15 Blood Blood Culture - Preliminary Resulted 04/20/17 21:00 Blood Blood Culture - Preliminary NO GROWTH AFTER 24 HOURS Resulted 04/21/17 18:40 Stool Clostridium difficile Toxin Assay - Final Complete 04/20/17 21:50 Urine,Clean Catch Urine Culture - Final Escherichia Coli Complete Intake and Output 04/21/17 04/22/17 19:00 07:00 Intake Total 890 ml 965 ml Output Total 700 ml 1200 ml Balance 190 ml -235 ml Intake Oral 240 ml 360 ml IV Total 650 ml 605 ml Output Urine Total 700 ml 1200 ml # Bowel Movements 2 2 Assessment/Plan Problem List: (1) Neck pain Assessment & Plan: History of cervical spine fracture. Currently in C-collar (2) Fever (3) Nausea & vomiting Assessment & Plan: Continue zofran prn (4) Diabetes mellitus Assessment & Plan: Continue novolog sliding scale. (5) Hydronephrosis of left kidney Assessment & Plan: Await nephrology consult. (6) Seizure disorder Assessment & Plan: Continue dialntin (7) Clostridium difficile diarrhea Assessment & Plan: Continue oral falgyl Day #04/15 (8) UTI (urinary tract infection) Assessment & Plan: E. Coli. Continue ceftriaxone. (9) Sepsis Assessment & Plan: Gram neg francisco. Await ID consult. Cont IV ceftriaxone for now. (10) Metastatic breast cancer Assessment & Plan: Currently on chemotherapy once per month (11) Abdominal pain Status: not improved HAMLET AMAYA Apr 22, 2017 13:41
[2017-04-22] MEDS ORDERED: metroNIDAZOLE 500mg tab ORAL SCH (14:00)
--- NOTE | 2017-04-22 14:23 | Cardiac Electrophysiology PN ---
Assessment/Plan Assessment/Plan 1. Tachycardia due to sinus tachycardia due to UTI and sepsis. No evidence of atrial fibrillation. Echocardiogram pending 2. History of hypertension, currently off antihypertensive agents. 3. History of seizures, on Neurontin. 4. Renal failure. 5. Hyponatremia. Further evaluation by Nephrology. 6. UTI and sepsis on iv ABx KYLEIGH RN Subjective Subjective Transferred to IDB. at bedside. Feeling better. Objective Last 24 Hour Vital Signs Date Time Temp Pulse Resp B/P (MAP) Pulse Ox O2 Delivery O2 Flow Rate FiO2 04/22/17 12:00 97.6 95 18 113/58 98 Room Air 04/22/17 09:52 99.5 04/22/17 08:00 98.2 100 18 108/53 99 Room Air 04/22/17 04:00 Room Air 04/22/17 04:00 98.4 107 18 101/44 96 04/22/17 00:00 98.2 104 20 106/48 97 04/22/17 00:00 Room Air 04/21/17 20:00 99.0 105 20 123/57 98 04/21/17 20:00 Room Air 04/21/17 16:00 97.3 114 22 113/67 97 Room Air Intake and Output 04/21/17 04/22/17 19:00 07:00 Intake Total 890 ml 965 ml Output Total 700 ml 1200 ml Balance 190 ml -235 ml Intake Oral 240 ml 360 ml IV Total 650 ml 605 ml Output Urine Total 700 ml 1200 ml # Bowel Movements 2 2 Laboratory Tests Test 04/22/17 04:20 04/22/17 05:00 White Blood Count 4.2 K/UL (4.8-10.8) L Red Blood Count 3.34 M/UL (4.20-5.40) L Hemoglobin 9.7 G/DL (12.0-16.0) L Hematocrit 29.9 % (37.0-47.0) L Mean Corpuscular Volume 89 FL (80-99) Mean Corpuscular Hemoglobin 28.9 PG (27.0-31.0) Mean Corpuscular Hemoglobin Concent 32.4 G/DL (32.0-36.0) Red Cell Distribution Width 16.7 % (11.6-14.8) H Platelet Count 80 K/UL (150-450) L Mean Platelet Volume 6.2 FL (6.5-10.1) L Neutrophils (%) (Auto) % (45.0-75.0) Lymphocytes (%) (Auto) % (20.0-45.0) Monocytes (%) (Auto) % (1.0-10.0) Eosinophils (%) (Auto) % (0.0-3.0) Basophils (%) (Auto) % (0.0-2.0) Differential Total Cells Counted 100 Neutrophils % (Manual) 74 % (45-75) Lymphocytes % (Manual) 21 % (20-45) Monocytes % (Manual) 5 % (1-10) Eosinophils % (Manual) 0 % (0-3) Basophils % (Manual) 0 % (0-2) Band Neutrophils 0 % (0-8) Platelet Estimate Decreased L Platelet Morphology Normal Sodium Level 132 MMOL/L (136-145) L Potassium Level 4.4 MMOL/L (3.5-5.1) Chloride Level 102 MMOL/L (98-107) Carbon Dioxide Level 21 MMOL/L (21-32) Anion Gap 10 mmol/L (5-15) Blood Urea Nitrogen 30 mg/dL (7-18) H Creatinine 1.3 MG/DL (0.55-1.30) Estimat Glomerular Filtration Rate mL/min (>60) Glucose Level 165 MG/DL (74-106) H Hemoglobin A1c 5.8 % (4.3-6.0) Uric Acid 5.3 MG/DL (2.6-7.2) Calcium Level 7.9 MG/DL (8.5-10.1) L Phosphorus Level 2.3 MG/DL (2.5-4.9) L Magnesium Level 1.6 MG/DL (1.8-2.4) L Iron Level 16 ug/dL (50-175) L Total Iron Binding Capacity 92 ug/dL (250-450) L Percent Iron Saturation 17 % (15-50) Unsaturated Iron Binding 76 ug/dL (112-346) L Ferritin 574 NG/ML (8-388) H Total Bilirubin 0.3 MG/DL (0.2-1.0) Gamma Glutamyl Transpeptidase 51 U/L (5-85) Aspartate Amino Transf (AST/SGOT) 17 U/L (15-37) Alanine Aminotransferase (ALT/SGPT) 15 U/L (12-78) Alkaline Phosphatase 59 U/L (46-116) Troponin I 0.007 ng/mL (0.000-0.056) Pro-B-Type Natriuretic Peptide 4219 pg/mL (0-125) H Total Protein 6.0 G/DL (6.4-8.2) L Albumin 1.9 G/DL (3.4-5.0) L Globulin 4.1 g/dL Albumin/Globulin Ratio 0.5 (1.0-2.7) L Lipase 115 U/L (73-393) Vitamin B12 Level > 2000 PG/ML (193-986) H Folate 12.2 NG/ML (8.6-58.9) Thyroid Stimulating Hormone (TSH) 0.634 uiU/mL (0.358-3.740) Cortisol AM Sample Pending Urine Random Sodium 114 MEQ/L (20-110) H Microbiology Date/Time Source Procedure Growth Status 04/20/17 21:15 Blood Blood Culture - Preliminary Resulted 04/20/17 21:00 Blood Blood Culture - Preliminary NO GROWTH AFTER 24 HOURS Resulted 04/21/17 18:40 Stool Clostridium difficile Toxin Assay - Final Complete 04/20/17 21:50 Urine,Clean Catch Urine Culture - Final Escherichia Coli Complete Objective HEAD AND NECK: Shows no JVD. LUNGS: Coarse rhonchi. CARDIOVASCULAR: Regular S1 and S2. Mildly tachycardic. ABDOMEN: Soft. EXTREMITIES: No pitting edema. PENELOPE CORONA Apr 22, 2017 14:23
[2017-04-22] MEDS: metroNIDAZOLE 500mg tab ORAL SCH ×2 (14:31→21:15)
[2017-04-22] MEDS: Phospha 250 Neutral tab ORAL SCH ×2 (14:32→16:32)
[2017-04-22 16:00] VITALS: BP 102/53
[2017-04-22 20:00] VITALS: BP 112/51
[2017-04-22] MEDS: cefTRIAXone 1 GM in D5W 55 ML IVPB SCH (21:15)
[2017-04-22] MEDS: Phenytoin 100mg cap ORAL SCH (21:15)
[2017-04-23] VITALS: BP 104/51
[2017-04-23 04:00] VITALS: BP 116/49
[2017-04-23] MEDS: metroNIDAZOLE 500mg tab ORAL SCH ×3 (05:59→20:31)
[2017-04-23] MEDS: NovoLOG Insulin Flexpen SUBQ SCH ×4 (06:02→20:37)
[2017-04-23 07:35] LABS: HEMATOCRIT 31.5 % (37.0-47.0); HEMOGLOBIN 10.2 G/DL (12.0-16.0); MEAN CORPUSCULAR VOLUME 91 FL (80-99); PLATELET COUNT 86 K/UL (150-450); RED BLOOD COUNT 3.47 M/UL (4.20-5.40); RED CELL DISTRIBUTION WIDTH 16.6 % (11.6-14.8); WHITE BLOOD COUNT 3.6 K/UL (4.8-10.8)
[2017-04-23 07:52] LABS: ANION GAP 11 mmol/L (5-15); BLOOD UREA NITROGEN 21 mg/dL (7-18); CALCIUM 8.4 MG/DL (8.5-10.1); CARBON DIOXIDE 22 MMOL/L (21-32); CHLORIDE 104 MMOL/L (98-107); CREATININE 1.2 MG/DL (0.55-1.30); PHOSPHORUS 3.6 MG/DL (2.5-4.9); POTASSIUM 4.2 MMOL/L (3.5-5.1); SODIUM 136 MMOL/L (136-145)
[2017-04-23 08:29] VITALS: BP 107/52
[2017-04-23] MEDS: Enoxaparin 60mg Inj SUBQ SCH (09:00)
[2017-04-23] MEDS: PARoxetine 10mg tab ORAL SCH (09:17)
[2017-04-23] MEDS: Phospha 250 Neutral tab ORAL SCH ×3 (09:17→18:01)
--- NOTE | 2017-04-23 11:48 | Internal Med Progress Note ---
Subjective Date of Service: Apr 23, 2017 Physician Name Hamlet Amaya Attending Physician Keon Mixon MD Current Medications Medications (Trade) Dose Ordered Sig/Setfan Route PRN Reason Start Time Stop Time Status Last Admin Dose Admin Acetaminophen (Tylenol) 650 mg Q6H PRN ORAL Mild Pain/Temp > 100.5 04/21/17 17:30 05/21/17 17:29 04/23/17 06:00 Ceftriaxone Sodium 1 gm/ Dextrose 55 ml @ 110 mls/hr Q24H IVPB 04/21/17 21:00 04/28/17 20:59 04/22/17 21:15 Dextrose (Dextrose 50%) STAT PRN IV Hypoglycemia 04/21/17 17:30 05/21/17 17:29 Enoxaparin Sodium (Lovenox) 60 mg DAILY SUBQ 04/22/17 09:00 05/21/17 08:59 Famotidine (Pepcid) 20 mg BID ORAL 04/21/17 18:00 05/21/17 10:29 04/23/17 09:17 Gabapentin (Neurontin) 100 mg BID ORAL 04/21/17 18:00 05/21/17 08:59 04/23/17 09:17 Insulin Aspart (NovoLOG) BEFORE MEALS AND HS SUBQ 04/21/17 21:00 05/21/17 06:29 04/23/17 06:02 Metronidazole (Flagyl) 500 mg Q8HR ORAL 04/22/17 14:00 04/29/17 13:59 04/23/17 05:59 Ondansetron HCl (Zofran) 4 mg Q6H PRN IVP Nausea & Vomiting 04/21/17 17:30 05/21/17 17:29 Paroxetine HCl (Paxil) 10 mg DAILY ORAL 04/22/17 09:00 05/21/17 08:59 04/23/17 09:17 Phenytoin (Dilantin) 400 mg BEDTIME ORAL 04/21/17 21:00 05/21/17 03:29 04/22/17 21:15 Phosphorus (Phospha 250 Neutral) 250 mg THREE TIMES A DAY ORAL 04/22/17 13:00 05/22/17 12:59 04/23/17 09:17 Tramadol HCl (Ultram) 50 mg Q4H PRN ORAL Moderate Breakthru Pain (5-7) 04/21/17 17:30 04/28/17 17:29 04/22/17 08:53 Allergies: Coded Allergies: LATEX (Verified Allergy, Unknown, 04/20/17) ROS Limited/Unobtainable: Yes Subjective 87 YO F admitted with abdominal paina nd fever. Now UTI and sepsis. Also C.Diff positive. Cover for Int Med-Dr Delgado. Objective Last Vital Signs Date Time Temp Pulse Resp B/P (MAP) Pulse Ox O2 Delivery O2 Flow Rate FiO2 04/23/17 08:29 97.0 97 20 107/52 98 04/23/17 04:00 Room Air Laboratory Tests Test 04/23/17 03:45 04/23/17 04:40 Stool Occult Blood Positive (NEGATIVE) White Blood Count 3.6 K/UL (4.8-10.8) L Red Blood Count 3.47 M/UL (4.20-5.40) L Hemoglobin 10.2 G/DL (12.0-16.0) L Hematocrit 31.5 % (37.0-47.0) L Mean Corpuscular Volume 91 FL (80-99) Mean Corpuscular Hemoglobin 29.3 PG (27.0-31.0) Mean Corpuscular Hemoglobin Concent 32.3 G/DL (32.0-36.0) Red Cell Distribution Width 16.6 % (11.6-14.8) H Platelet Count 86 K/UL (150-450) L Mean Platelet Volume 5.7 FL (6.5-10.1) L Neutrophils (%) (Auto) % (45.0-75.0) Lymphocytes (%) (Auto) % (20.0-45.0) Monocytes (%) (Auto) % (1.0-10.0) Eosinophils (%) (Auto) % (0.0-3.0) Basophils (%) (Auto) % (0.0-2.0) Differential Total Cells Counted 100 Neutrophils % (Manual) 70 % (45-75) Lymphocytes % (Manual) 18 % (20-45) L Monocytes % (Manual) 11 % (1-10) H Eosinophils % (Manual) 0 % (0-3) Basophils % (Manual) 1 % (0-2) Band Neutrophils 0 % (0-8) Platelet Estimate Decreased L Platelet Morphology Normal Hypochromasia 2+ Sodium Level 136 MMOL/L (136-145) Potassium Level 4.2 MMOL/L (3.5-5.1) Chloride Level 104 MMOL/L (98-107) Carbon Dioxide Level 22 MMOL/L (21-32) Anion Gap 11 mmol/L (5-15) Blood Urea Nitrogen 21 mg/dL (7-18) H Creatinine 1.2 MG/DL (0.55-1.30) Estimat Glomerular Filtration Rate mL/min (>60) Glucose Level 143 MG/DL (74-106) H Calcium Level 8.4 MG/DL (8.5-10.1) L Phosphorus Level 3.6 MG/DL (2.5-4.9) Magnesium Level 1.8 MG/DL (1.8-2.4) Microbiology Date/Time Source Procedure Growth Status 04/20/17 21:15 Blood Blood Culture - Preliminary Gram Negative Bacillus 1 Resulted 04/20/17 21:00 Blood Blood Culture - Preliminary NO GROWTH AFTER 48 HOURS Resulted 04/21/17 18:40 Stool Clostridium difficile Toxin Assay - Final Complete 04/20/17 21:50 Urine,Clean Catch Urine Culture - Final Escherichia Coli Complete Intake and Output 04/22/17 04/23/17 19:00 07:00 Intake Total 480 ml 295 ml Output Total 1000 ml 1350 ml Balance -520 ml -1055 ml Intake Oral 480 ml 240 ml IV Total 55 ml Output Urine Total 1000 ml 1350 ml # Bowel Movements 3 1 Objective General Appearance: WD/WN, no apparent distress, alert EENT: PERRL/EOMI, normal ENT inspection, TMs normal Neck: non-tender, normal alignment, supple, normal inspection Cardiovascular: normal peripheral pulses, normal rate, regular rhythm, no gallop/murmur, no JVD Respiratory/Chest: chest wall non-tender, lungs clear, normal breath sounds, no respiratory distress, no accessory muscle use Abdomen: normal bowel sounds, soft, no organomegaly, no mass, decreased bowel sounds, tender Extremities: normal range of motion, non-tender 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 Currently in C-collar (2) Fever (3) Nausea & vomiting Assessment & Plan: Continue zofran prn (4) Diabetes mellitus Assessment & Plan: Continue novolog sliding scale. (5) Hydronephrosis of left kidney Assessment & Plan: Await nephrology consult. (6) Seizure disorder Assessment & Plan: Continue dialntin (7) Clostridium difficile diarrhea Assessment & Plan: Continue oral falgyl Day #1/14 (8) UTI (urinary tract infection) Assessment & Plan: E. Coli. Continue ceftriaxone. (9) Sepsis Assessment & Plan: Gram neg francisco. Await ID consult. Cont IV ceftriaxone for now. (10) Metastatic breast cancer Assessment & Plan: Currently on chemotherapy once per month (11) Abdominal pain Status: not improved HAMLET AMAYA Apr 23, 2017 11:47
--- NOTE | 2017-04-23 12:10 | Consultation ---
Consult Note Consult Note ID DIC # [id number] ASHOK HARVEY M.D. Apr 23, 2017 12:10
[2017-04-23 12:21] VITALS: BP 115/58
--- NOTE | 2017-04-23 14:59 | Cardiac Electrophysiology PN ---
Assessment/Plan Assessment/Plan 1. Tachycardia due to sinus tachycardia due to UTI and sepsis. No evidence of atrial fibrillation. Echocardiogram pending 2. History of hypertension, currently off antihypertensive agents. 3. History of seizures, on Neurontin. 4. Renal failure. 5. Hyponatremia. Resolved Na 136 today 6. UTI and sepsis on iv ABx DW RN Subjective Subjective On NMB. Feeling better but still coughing. Objective Last 24 Hour Vital Signs Date Time Temp Pulse Resp B/P (MAP) Pulse Ox O2 Delivery O2 Flow Rate FiO2 04/23/17 12:21 97.8 92 20 115/58 98 04/23/17 08:29 97.0 97 20 107/52 98 04/23/17 04:00 98.2 102 20 116/49 98 Room Air 04/23/17 00:00 98.2 105 18 104/51 98 Room Air 04/22/17 20:00 98.2 100 20 112/51 96 04/22/17 20:00 Room Air 04/22/17 16:00 97.8 99 18 102/53 97 Room Air Intake and Output 04/22/17 04/23/17 19:00 07:00 Intake Total 480 ml 295 ml Output Total 1000 ml 1350 ml Balance -520 ml -1055 ml Intake Oral 480 ml 240 ml IV Total 55 ml Output Urine Total 1000 ml 1350 ml # Bowel Movements 3 1 Laboratory Tests Test 04/23/17 03:45 04/23/17 04:40 Stool Occult Blood Positive (NEGATIVE) White Blood Count 3.6 K/UL (4.8-10.8) L Red Blood Count 3.47 M/UL (4.20-5.40) L Hemoglobin 10.2 G/DL (12.0-16.0) L Hematocrit 31.5 % (37.0-47.0) L Mean Corpuscular Volume 91 FL (80-99) Mean Corpuscular Hemoglobin 29.3 PG (27.0-31.0) Mean Corpuscular Hemoglobin Concent 32.3 G/DL (32.0-36.0) Red Cell Distribution Width 16.6 % (11.6-14.8) H Platelet Count 86 K/UL (150-450) L Mean Platelet Volume 5.7 FL (6.5-10.1) L Neutrophils (%) (Auto) % (45.0-75.0) Lymphocytes (%) (Auto) % (20.0-45.0) Monocytes (%) (Auto) % (1.0-10.0) Eosinophils (%) (Auto) % (0.0-3.0) Basophils (%) (Auto) % (0.0-2.0) Differential Total Cells Counted 100 Neutrophils % (Manual) 70 % (45-75) Lymphocytes % (Manual) 18 % (20-45) L Monocytes % (Manual) 11 % (1-10) H Eosinophils % (Manual) 0 % (0-3) Basophils % (Manual) 1 % (0-2) Band Neutrophils 0 % (0-8) Platelet Estimate Decreased L Platelet Morphology Normal Hypochromasia 2+ Sodium Level 136 MMOL/L (136-145) Potassium Level 4.2 MMOL/L (3.5-5.1) Chloride Level 104 MMOL/L (98-107) Carbon Dioxide Level 22 MMOL/L (21-32) Anion Gap 11 mmol/L (5-15) Blood Urea Nitrogen 21 mg/dL (7-18) H Creatinine 1.2 MG/DL (0.55-1.30) Estimat Glomerular Filtration Rate mL/min (>60) Glucose Level 143 MG/DL (74-106) H Calcium Level 8.4 MG/DL (8.5-10.1) L Phosphorus Level 3.6 MG/DL (2.5-4.9) Magnesium Level 1.8 MG/DL (1.8-2.4) Microbiology Date/Time Source Procedure Growth Status 04/20/17 21:15 Blood Blood Culture - Preliminary Gram Negative Bacillus 1 Resulted 04/20/17 21:00 Blood Blood Culture - Preliminary NO GROWTH AFTER 48 HOURS Resulted 04/21/17 18:40 Stool Clostridium difficile Toxin Assay - Final Complete 04/20/17 21:50 Urine,Clean Catch Urine Culture - Final Escherichia Coli Complete Objective HEAD AND NECK: Shows no JVD. LUNGS: Coarse rhonchi. CARDIOVASCULAR: Regular S1 and S2. Mildly tachycardic. ABDOMEN: Soft. EXTREMITIES: No pitting edema. PENELOPE CORONA Apr 23, 2017 14:59
--- NOTE | 2017-04-23 15:13 | Nephrology Progress Note ---
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 DM HTN but hypotension on presentation left lobe liver lesion Malnutrition Plan Plan; Hydrate- done Antibiotics- avoid Nephrotoxics- Monitor renal parameters and lytes Watch H&h per orders Subjective ROS Limited/Unobtainable: No Constitutional: Reports: malaise Objective Objective Last 24 Hour Vital Signs Date Time Temp Pulse Resp B/P (MAP) Pulse Ox O2 Delivery O2 Flow Rate FiO2 04/23/17 12:21 97.8 92 20 115/58 98 04/23/17 08:29 97.0 97 20 107/52 98 04/23/17 04:00 98.2 102 20 116/49 98 Room Air 04/23/17 00:00 98.2 105 18 104/51 98 Room Air 04/22/17 20:00 98.2 100 20 112/51 96 04/22/17 20:00 Room Air 04/22/17 16:00 97.8 99 18 102/53 97 Room Air Intake and Output 04/22/17 04/23/17 19:00 07:00 Intake Total 480 ml 295 ml Output Total 1000 ml 1350 ml Balance -520 ml -1055 ml Intake Oral 480 ml 240 ml IV Total 55 ml Output Urine Total 1000 ml 1350 ml # Bowel Movements 3 1 Laboratory Tests 04/23/17 03:45: Stool Occult Blood Positive 04/23/17 04:40: White Blood Count 3.6L, Red Blood Count 3.47L, Hemoglobin 10.2L, Hematocrit 31.5L, Mean Corpuscular Volume 91, Mean Corpuscular Hemoglobin 29.3, Mean Corpuscular Hemoglobin Concent 32.3, Red Cell Distribution Width 16.6H, Platelet Count 86L, Mean Platelet Volume 5.7L, Neutrophils (%) (Auto) , Lymphocytes (%) (Auto) , Monocytes (%) (Auto) , Eosinophils (%) (Auto) , Basophils (%) (Auto) , Differential Total Cells Counted 100, Neutrophils % ( Manual) 70, Lymphocytes % (Manual) 18L, Monocytes % (Manual) 11H, Eosinophils % (Manual) 0, Basophils % (Manual) 1, Band Neutrophils 0, Platelet Estimate DecreasedL, Platelet Morphology Normal, Hypochromasia 2+, Sodium Level 136, Potassium Level 4.2, Chloride Level 104, Carbon Dioxide Level 22, Anion Gap 11, Blood Urea Nitrogen 21H, Creatinine 1.2, Estimat Glomerular Filtration Rate , Glucose Level 143H, Calcium Level 8.4L, Phosphorus Level 3.6, Magnesium Level 1.8 Height (Feet): 5 Height (Inches): 5.00 Weight (Pounds): 130 General Appearance: mild distress Respiratory/Chest: decreased breath sounds Abdomen: distended Objective no other changes TARIQ MIRZA Apr 23, 2017 15:13
[2017-04-23 16:30] VITALS: BP 114/54
[2017-04-23] MEDS: traMADol 50mg tab ORAL PRN (16:45)
--- NOTE | 2017-04-23 17:45 | Consultation ---
DATE OF CONSULTATION: 04/23/2017 INFECTIOUS DISEASE CONSULTATION CONSULTING PHYSICIAN: Mat Huerta M.D. REFERRING PHYSICIAN: Lalo Edmondson M.D. REASON FOR CONSULTATION: Evaluation of the patient for C. difficile, UTI, bacteremia, antibiotic management. HISTORY OF PRESENT ILLNESS: The patient is an 87-year-old female with multiple medical problems, who was brought to this hospital with fever, chills, nausea, vomiting, and diarrhea. The patient apparently was recently admitted to [facility] for a week (3 weeks ago) for seizure. The patient now comes to the hospital with chief complaint of diarrhea. The patient has positive blood culture for gram-negative rods. The patient has been started on IV antibiotics. Infectious Diseases consultation has been requested for further evaluation of the patient's antibiotic management. The patient is unable to provide detailed information due to confusion. The patient's caregiver at home is at the bedside and does provide history. PAST MEDICAL HISTORY: 1. Diabetes. 2. Hypertension. 3. Seizure disorder. 4. 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 MEDICATIONS: Flagyl and Rocephin. ALLERGIES: No known drug allergy except latex. SOCIAL HISTORY: The patient lives at home. FAMILY HISTORY: Unavailable. REVIEW OF SYSTEMS: Unobtainable. PHYSICAL EXAMINATION: VITAL SIGNS: Temperature 97 degrees, blood pressure 107/52, pulse 86, respiratory rate 18. T-max 100 degrees. HEENT: No pale conjunctivae. No icterus. NECK: No lymphadenopathy. CHEST: Clear. HEART: S1 and S2. ABDOMEN: Soft, nontender. EXTREMITIES: No cyanosis at this time. NEUROLOGIC: confused. LABORATORY AND DIAGNOSTIC DATA: White blood cells 3.6, hemoglobin 10, and platelets 86,000. UA, 20-30 white blood cells. Stool occult blood positive. BUN 21, creatinine 1.2. ALT, AST, alkaline phosphatase unremarkable. CRP more than 17. C. difficile toxin positive. Urine culture is positive for E. coli. Blood culture is growing gram-negative francisco, one out of two sets. Abdominal CT, hyperdense lesion in left lower lobe. Chest x-ray, bilateral interstitial disease. ASSESSMENT: 1. Status post low-grade fever. 2. Leukopenia. 3. Clostridium difficile colitis. 4. Escherichia coli urinary tract infection. 5. Gram-negative bacteremia. 6. ? pneumonia (the patient has increase of cough recently). PLAN: 1. We will continue the patient on Rocephin day #3, Flagyl day #2, add oral vancomycin. 2. Monitor CBC. 3. Monitor BMP. 4. Monitor cultures. 5. Monitor chest x-ray. 6. Based on the patient's clinical course and labs, we will do further recommendation. Thank you, Dr. Edmondson, for allowing me to participate in the care of this patient. I will follow the patient with you during this hospitalization. Mat Huerta M.D. DR: ADRIÁN JOB#: [id number] CC:
[2017-04-23] MEDS ORDERED: Analgesic Balm 15gm TOPIC PRN (18:00)
--- NOTE | 2017-04-23 18:27 | Pulmonology Progress Note ---
Assessment/Plan Problems: (1) UTI (urinary tract infection) (2) Diabetes mellitus (3) Clostridium difficile diarrhea (4) Hydronephrosis of left kidney (5) Metastatic breast cancer Assessment/Plan IV abx check cultures symptomatic treatment check electrolytes pain management Subjective Allergies: Coded Allergies: LATEX (Verified Allergy, Unknown, 04/20/17) Objective Last 24 Hour Vital Signs Date Time Temp Pulse Resp B/P (MAP) Pulse Ox O2 Delivery O2 Flow Rate FiO2 04/23/17 16:30 98.0 98 20 114/54 100 04/23/17 12:21 97.8 92 20 115/58 98 04/23/17 08:29 97.0 97 20 107/52 98 04/23/17 04:00 98.2 102 20 116/49 98 Room Air 04/23/17 00:00 98.2 105 18 104/51 98 Room Air 04/22/17 20:00 98.2 100 20 112/51 96 04/22/17 20:00 Room Air Intake and Output 04/22/17 04/23/17 19:00 07:00 Intake Total 480 ml 295 ml Output Total 1000 ml 1350 ml Balance -520 ml -1055 ml Intake Oral 480 ml 240 ml IV Total 55 ml Output Urine Total 1000 ml 1350 ml # Bowel Movements 3 1 Microbiology Date/Time Source Procedure Growth Status 04/20/17 21:15 Blood Blood Culture - Preliminary Gram Negative Bacillus 1 Resulted 04/20/17 21:00 Blood Blood Culture - Preliminary NO GROWTH AFTER 48 HOURS Resulted 04/21/17 18:40 Stool Clostridium difficile Toxin Assay - Final Complete 04/20/17 21:50 Urine,Clean Catch Urine Culture - Final Escherichia Coli Complete Laboratory Tests 04/23/17 03:45: Stool Occult Blood Positive 04/23/17 04:40: White Blood Count 3.6L, Red Blood Count 3.47L, Hemoglobin 10.2L, Hematocrit 31.5L, Mean Corpuscular Volume 91, Mean Corpuscular Hemoglobin 29.3, Mean Corpuscular Hemoglobin Concent 32.3, Red Cell Distribution Width 16.6H, Platelet Count 86L, Mean Platelet Volume 5.7L, Neutrophils (%) (Auto) , Lymphocytes (%) (Auto) , Monocytes (%) (Auto) , Eosinophils (%) (Auto) , Basophils (%) (Auto) , Differential Total Cells Counted 100, Neutrophils % ( Manual) 70, Lymphocytes % (Manual) 18L, Monocytes % (Manual) 11H, Eosinophils % (Manual) 0, Basophils % (Manual) 1, Band Neutrophils 0, Platelet Estimate DecreasedL, Platelet Morphology Normal, Hypochromasia 2+, Sodium Level 136, Potassium Level 4.2, Chloride Level 104, Carbon Dioxide Level 22, Anion Gap 11, Blood Urea Nitrogen 21H, Creatinine 1.2, Estimat Glomerular Filtration Rate , Glucose Level 143H, Calcium Level 8.4L, Phosphorus Level 3.6, Magnesium Level 1.8 Current Medications Medications (Trade) Dose Ordered Sig/Stefan Route PRN Reason Start Time Stop Time Status Last Admin Dose Admin Acetaminophen (Tylenol) 650 mg Q6H PRN ORAL Mild Pain/Temp > 100.5 04/21/17 17:30 05/21/17 17:29 04/23/17 06:00 Ceftriaxone Sodium 1 gm/ Dextrose 55 ml @ 110 mls/hr Q24H IVPB 04/21/17 21:00 04/28/17 20:59 04/22/17 21:15 Dextrose (Dextrose 50%) STAT PRN IV Hypoglycemia 04/21/17 17:30 05/21/17 17:29 Enoxaparin Sodium (Lovenox) 60 mg DAILY SUBQ 04/24/17 09:00 05/24/17 08:59 Famotidine (Pepcid) 20 mg BID ORAL 04/21/17 18:00 05/21/17 10:29 04/23/17 18:01 Gabapentin (Neurontin) 100 mg BID ORAL 04/21/17 18:00 05/21/17 08:59 04/23/17 18:01 Insulin Aspart (NovoLOG) BEFORE MEALS AND HS SUBQ 04/21/17 21:00 05/21/17 06:29 04/23/17 06:02 Menthol/Methyl Salicylate (Bengay) 1 applic Q6H PRN TOPIC BACK PAIN 04/23/17 18:00 05/23/17 17:59 Metronidazole (Flagyl) 500 mg Q8HR ORAL 04/22/17 14:00 04/29/17 13:59 04/23/17 14:07 Ondansetron HCl (Zofran) 4 mg Q6H PRN IVP Nausea & Vomiting 04/21/17 17:30 05/21/17 17:29 Paroxetine HCl (Paxil) 10 mg DAILY ORAL 04/22/17 09:00 05/21/17 08:59 04/23/17 09:17 Phenytoin (Dilantin) 400 mg BEDTIME ORAL 04/21/17 21:00 05/21/17 03:29 04/22/17 21:15 Phosphorus (Phospha 250 Neutral) 250 mg THREE TIMES A DAY ORAL 04/22/17 13:00 05/22/17 12:59 04/23/17 18:01 Tramadol HCl (Ultram) 50 mg Q4H PRN ORAL Moderate Breakthru Pain (5-7) 04/21/17 17:30 04/28/17 17:29 04/23/17 16:45 MOJGAN NAPOLES Apr 23, 2017 18:27
[2017-04-23 20:00] VITALS: BP 106/57
[2017-04-23] MEDS: Phenytoin Susp 100mg/4ml ORAL SCH (20:29)
[2017-04-23] MEDS: cefTRIAXone 1 GM in D5W 55 ML IVPB SCH (20:29)
[2017-04-24 00:56] VITALS: BP 115/61
[2017-04-24] MEDS: traMADol 50mg tab ORAL PRN ×2 (01:07→08:14)
[2017-04-24 04:45] VITALS: BP 115/59
[2017-04-24] MEDS: metroNIDAZOLE 500mg tab ORAL SCH ×3 (05:59→20:47)
[2017-04-24] MEDS: NovoLOG Insulin Flexpen SUBQ SCH ×4 (06:04→21:00)
[2017-04-24 07:33] LABS: EOSINOPHILS % (AUTO) 0.2 % (0.0-3.0); HEMATOCRIT 33.2 % (37.0-47.0); HEMOGLOBIN 10.7 G/DL (12.0-16.0); LYMPHOCYTES % (AUTO) 16.9 % (20.0-45.0); MEAN CORPUSCULAR VOLUME 91 FL (80-99); MONOCYTES % (AUTO) 8.4 % (1.0-10.0); NEUTROPHILS % (AUTO) 73.5 % (45.0-75.0); PLATELET COUNT 121 K/UL (150-450); RED BLOOD COUNT 3.66 M/UL (4.20-5.40); RED CELL DISTRIBUTION WIDTH 16.9 % (11.6-14.8)
[2017-04-24] MEDS: PARoxetine 10mg tab ORAL SCH (08:14)
[2017-04-24] MEDS: Phospha 250 Neutral tab ORAL SCH ×4 (08:15→18:24)
[2017-04-24 08:23] LABS: ANION GAP 12 mmol/L (5-15); BLOOD UREA NITROGEN 20 mg/dL (7-18); CALCIUM 8.6 MG/DL (8.5-10.1); CARBON DIOXIDE 22 MMOL/L (21-32); CHLORIDE 105 MMOL/L (98-107); CREATININE 1.1 MG/DL (0.55-1.30); POTASSIUM 3.8 MMOL/L (3.5-5.1); SODIUM 139 MMOL/L (136-145)
[2017-04-24] MEDS: Enoxaparin 60mg Inj SUBQ SCH (08:24)
[2017-04-24 08:38] VITALS: BP 103/59
--- NOTE | 2017-04-24 10:13 | Infectious Diseases Prog Note ---
Assessment/Plan Assessment/Plan ASSESSMENT: Status post low-grade fever. Leukopenia Clostridium difficile colitis. Escherichia coli urinary tract infection. Gram-negative bacteremia. ? pneumonia (the patient has increase of cough recently) Chest x-ray, bilateral interstitial disease. Diabetes. Hypertension. Seizure disorder. 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 Abdominal CT, hyperdense lesion in left lower lobe. PLAN: continue the patient on Rocephin day #4 /14 , Flagyl day # 3 , add oral vancomycin d # 1 Monitor CBC. Monitor BMP. Monitor cultures. Monitor chest x-ray. Subjective Constitutional: Denies: no symptoms, fever, chills, fatigue, anorexia, drenching sweats, other Allergies: Coded Allergies: LATEX (Verified Allergy, Unknown, 04/20/17) Objective Vital Signs Last 24 Hour Vital Signs Date Time Temp Pulse Resp B/P (MAP) Pulse Ox O2 Delivery O2 Flow Rate FiO2 04/24/17 08:38 98.0 96 20 103/59 100 04/24/17 04:45 98.0 99 20 115/59 96 04/24/17 02:02 98.0 04/24/17 00:56 96 Room Air 04/24/17 00:56 98.0 91 20 115/61 96 04/23/17 21:33 98.0 04/23/17 20:00 98.0 96 20 106/57 96 04/23/17 20:00 96 Room Air 04/23/17 16:30 98.0 98 20 114/54 100 04/23/17 12:21 97.8 92 20 115/58 98 Height (Feet): 5 Height (Inches): 5.00 Weight (Pounds): 130 HEENT: anicteric Respiratory/Chest: lungs clear Cardiovascular: normal peripheral pulses Abdomen: soft, non tender Microbiology Date/Time Source Procedure Growth Status 04/21/17 18:40 Stool Clostridium difficile Toxin Assay - Final Complete Laboratory Tests Test 04/24/17 05:40 White Blood Count 4.0 K/UL (4.8-10.8) L Red Blood Count 3.66 M/UL (4.20-5.40) L Hemoglobin 10.7 G/DL (12.0-16.0) L Hematocrit 33.2 % (37.0-47.0) L Mean Corpuscular Volume 91 FL (80-99) Mean Corpuscular Hemoglobin 29.1 PG (27.0-31.0) Mean Corpuscular Hemoglobin Concent 32.1 G/DL (32.0-36.0) Red Cell Distribution Width 16.9 % (11.6-14.8) H Platelet Count 121 K/UL (150-450) L Mean Platelet Volume 5.6 FL (6.5-10.1) L Neutrophils (%) (Auto) 73.5 % (45.0-75.0) Lymphocytes (%) (Auto) 16.9 % (20.0-45.0) L Monocytes (%) (Auto) 8.4 % (1.0-10.0) Eosinophils (%) (Auto) 0.2 % (0.0-3.0) Basophils (%) (Auto) 1.0 % (0.0-2.0) Sodium Level 139 MMOL/L (136-145) Potassium Level 3.8 MMOL/L (3.5-5.1) Chloride Level 105 MMOL/L (98-107) Carbon Dioxide Level 22 MMOL/L (21-32) Anion Gap 12 mmol/L (5-15) Blood Urea Nitrogen 20 mg/dL (7-18) H Creatinine 1.1 MG/DL (0.55-1.30) Estimat Glomerular Filtration Rate mL/min (>60) Glucose Level 162 MG/DL (74-106) H Calcium Level 8.6 MG/DL (8.5-10.1) Current Medications Medications (Trade) Dose Ordered Sig/Stefan Route PRN Reason Start Time Stop Time Status Last Admin Dose Admin Acetaminophen (Tylenol) 650 mg Q6H PRN ORAL Mild Pain/Temp > 100.5 04/21/17 17:30 05/21/17 17:29 04/23/17 20:31 Ceftriaxone Sodium 1 gm/ Dextrose 55 ml @ 110 mls/hr Q24H IVPB 04/21/17 21:00 04/28/17 20:59 04/23/17 20:29 Dextrose (Dextrose 50%) STAT PRN IV Hypoglycemia 04/21/17 17:30 05/21/17 17:29 Enoxaparin Sodium (Lovenox) 60 mg DAILY SUBQ 04/24/17 09:00 05/24/17 08:59 04/24/17 08:24 Famotidine (Pepcid) 20 mg BID ORAL 04/21/17 18:00 05/21/17 10:29 04/24/17 08:14 Gabapentin (Neurontin) 100 mg BID ORAL 04/21/17 18:00 05/21/17 08:59 04/24/17 08:13 Insulin Aspart (NovoLOG) BEFORE MEALS AND HS SUBQ 04/21/17 21:00 05/21/17 06:29 04/24/17 06:04 Menthol/Methyl Salicylate (Bengay) 1 applic Q6H PRN TOPIC BACK PAIN 04/23/17 18:00 05/23/17 17:59 Metronidazole (Flagyl) 500 mg Q8HR ORAL 04/22/17 14:00 04/29/17 13:59 04/24/17 05:59 Ondansetron HCl (Zofran) 4 mg Q6H PRN IVP Nausea & Vomiting 04/21/17 17:30 05/21/17 17:29 04/24/17 07:29 Paroxetine HCl (Paxil) 10 mg DAILY ORAL 04/22/17 09:00 05/21/17 08:59 04/24/17 08:14 Phenytoin (Dilantin) 400 mg BEDTIME ORAL 04/23/17 21:00 05/21/17 03:29 04/23/17 20:29 Phosphorus (Phospha 250 Neutral) 250 mg THREE TIMES A DAY ORAL 04/22/17 13:00 05/22/17 12:59 04/24/17 08:15 Tramadol HCl (Ultram) 50 mg Q4H PRN ORAL Moderate Breakthru Pain (5-7) 04/21/17 17:30 04/28/17 17:29 04/24/17 08:14 ASHOK HARVEY M.D. Apr 24, 2017 10:13
[2017-04-24 11:50] VITALS: BP 109/61
--- NOTE | 2017-04-24 11:51 | Diagnostic Imaging Report ---
Indication: Acute renal failure Technique: Grayscale and duplex images of the kidneys, retroperitoneum, and bladder were obtained. Comparison: Abdomen and pelvis CT dated 04/20/2017 Findings: Right kidney measures 10.3 cm in length. Left kidney measures 13.6 cm in length. Both kidneys demonstrate normal echogenicity. The left kidney demonstrates hydronephrosis and a dilated extrarenal pelvis of the lower pole moiety of a duplex collecting system. The right kidney demonstrates mild hydronephrosis. No focal abnormality. Normal inferior vena cava. Bladder is visualized, and the due to the presence of a [place] catheter. Impression: Hydronephrotic lower pole moiety of duplex left renal collecting system, also described on recent CT scan. 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
--- NOTE | 2017-04-24 11:54 | Nephrology Progress Note ---
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 DM HTN but hypotension on presentation left lobe liver lesion Malnutrition Plan Plan; stop Hydrate Antibiotics- avoid Nephrotoxics- Monitor renal parameters and lytes Watch H&h per orders Subjective ROS Limited/Unobtainable: No Constitutional: Reports: malaise, weakness Objective Objective Last 24 Hour Vital Signs Date Time Temp Pulse Resp B/P (MAP) Pulse Ox O2 Delivery O2 Flow Rate FiO2 04/24/17 11:50 97.5 56 20 109/61 96 04/24/17 08:38 98.0 96 20 103/59 100 04/24/17 04:45 98.0 99 20 115/59 96 04/24/17 02:02 98.0 04/24/17 00:56 96 Room Air 04/24/17 00:56 98.0 91 20 115/61 96 04/23/17 21:33 98.0 04/23/17 20:00 98.0 96 20 106/57 96 04/23/17 20:00 96 Room Air 04/23/17 16:30 98.0 98 20 114/54 100 04/23/17 12:21 97.8 92 20 115/58 98 Intake and Output 04/23/17 04/24/17 19:00 07:00 Intake Total 480 ml 55 ml Output Total 1000 ml Balance -520 ml 55 ml Intake Oral 480 ml IV Total 55 ml Output Urine Total 1000 ml # Voids 3 # Bowel Movements 2 2 Laboratory Tests 04/24/17 05:40: White Blood Count 4.0L, Red Blood Count 3.66L, Hemoglobin 10.7L, Hematocrit 33.2L, Mean Corpuscular Volume 91, Mean Corpuscular Hemoglobin 29.1, Mean Corpuscular Hemoglobin Concent 32.1, Red Cell Distribution Width 16.9H, Platelet Count 121L, Mean Platelet Volume 5.6L, Neutrophils (%) (Auto) 73.5, Lymphocytes (%) (Auto) 16.9L, Monocytes (%) (Auto) 8.4, Eosinophils (%) (Auto) 0.2, Basophils (%) (Auto) 1.0, Sodium Level 139, Potassium Level 3.8, Chloride Level 105, Carbon Dioxide Level 22, Anion Gap 12, Blood Urea Nitrogen 20H, Creatinine 1.1, Estimat Glomerular Filtration Rate , Glucose Level 162H, Calcium Level 8.6 Height (Feet): 5 Height (Inches): 5.00 Weight (Pounds): 130 General Appearance: no apparent distress Cardiovascular: tachycardia Respiratory/Chest: decreased breath sounds Abdomen: distended Objective no other changes TARIQ MIRZA Apr 24, 2017 11:54
[2017-04-24] MEDS ORDERED: Vancomycin oral 125mg/2.5ml ORAL SCH (13:00)
[2017-04-24] MEDS: D5 1/2NS 1,000 ML IV SCH (13:36)
[2017-04-24] MEDS: Vancomycin oral 125mg/2.5ml ORAL SCH ×2 (15:33→20:48)
--- NOTE | 2017-04-24 16:12 | Cardiac Electrophysiology PN ---
Assessment/Plan Assessment/Plan 1. sinus tachycardia due to UTI and sepsis. No evidence of atrial fibrillation. Echocardiogram pending 2. History of hypertension, currently off antihypertensive agents. 3. History of seizures, on Neurontin. 4. Renal failure. 5. Hyponatremia. Resolved Na 136 6. UTI and sepsis on iv ABx DW RN and daughter Subjective Subjective On NMB. Still coughing. Daughter at bedside. Objective Last 24 Hour Vital Signs Date Time Temp Pulse Resp B/P (MAP) Pulse Ox O2 Delivery O2 Flow Rate FiO2 04/24/17 11:50 97.5 56 20 109/61 96 04/24/17 08:38 98.0 96 20 103/59 100 04/24/17 04:45 98.0 99 20 115/59 96 04/24/17 02:02 98.0 04/24/17 00:56 96 Room Air 04/24/17 00:56 98.0 91 20 115/61 96 04/23/17 21:33 98.0 04/23/17 20:00 98.0 96 20 106/57 96 04/23/17 20:00 96 Room Air 04/23/17 16:30 98.0 98 20 114/54 100 Intake and Output 04/23/17 04/24/17 19:00 07:00 Intake Total 480 ml 55 ml Output Total 1000 ml Balance -520 ml 55 ml Intake Oral 480 ml IV Total 55 ml Output Urine Total 1000 ml # Voids 3 # Bowel Movements 2 2 Laboratory Tests Test 04/24/17 05:40 White Blood Count 4.0 K/UL (4.8-10.8) L Red Blood Count 3.66 M/UL (4.20-5.40) L Hemoglobin 10.7 G/DL (12.0-16.0) L Hematocrit 33.2 % (37.0-47.0) L Mean Corpuscular Volume 91 FL (80-99) Mean Corpuscular Hemoglobin 29.1 PG (27.0-31.0) Mean Corpuscular Hemoglobin Concent 32.1 G/DL (32.0-36.0) Red Cell Distribution Width 16.9 % (11.6-14.8) H Platelet Count 121 K/UL (150-450) L Mean Platelet Volume 5.6 FL (6.5-10.1) L Neutrophils (%) (Auto) 73.5 % (45.0-75.0) Lymphocytes (%) (Auto) 16.9 % (20.0-45.0) L Monocytes (%) (Auto) 8.4 % (1.0-10.0) Eosinophils (%) (Auto) 0.2 % (0.0-3.0) Basophils (%) (Auto) 1.0 % (0.0-2.0) Sodium Level 139 MMOL/L (136-145) Potassium Level 3.8 MMOL/L (3.5-5.1) Chloride Level 105 MMOL/L (98-107) Carbon Dioxide Level 22 MMOL/L (21-32) Anion Gap 12 mmol/L (5-15) Blood Urea Nitrogen 20 mg/dL (7-18) H Creatinine 1.1 MG/DL (0.55-1.30) Estimat Glomerular Filtration Rate mL/min (>60) Glucose Level 162 MG/DL (74-106) H Calcium Level 8.6 MG/DL (8.5-10.1) Microbiology Date/Time Source Procedure Growth Status 04/21/17 18:40 Stool Clostridium difficile Toxin Assay - Final Complete Objective HEAD AND NECK: No JVD. LUNGS: Coarse rhonchi. CARDIOVASCULAR: Regular S1 and S2. Mildly tachycardic. ABDOMEN: Soft. EXTREMITIES: No pitting edema. PENELOPE CORONA Apr 24, 2017 16:12
[2017-04-24 16:13] VITALS: BP 99/54
--- NOTE | 2017-04-24 18:04 | Internal Med Progress Note ---
Subjective Date of Service: Apr 24, 2017 Physician Name Hamlet Amaya Attending Physician Keon Mixon MD Current Medications Medications (Trade) Dose Ordered Sig/Stefan Route PRN Reason Start Time Stop Time Status Last Admin Dose Admin Acetaminophen (Tylenol) 650 mg Q6H PRN ORAL Mild Pain/Temp > 100.5 04/21/17 17:30 05/21/17 17:29 04/23/17 20:31 Ceftriaxone Sodium 1 gm/ Dextrose 55 ml @ 110 mls/hr Q24H IVPB 04/21/17 21:00 04/28/17 20:59 04/23/17 20:29 Dextrose (Dextrose 50%) STAT PRN IV Hypoglycemia 04/21/17 17:30 05/21/17 17:29 Dextrose/Sodium Chloride 1,000 ml @ 75 mls/hr [id number] IV 04/24/17 13:00 05/24/17 12:59 04/24/17 13:36 Enoxaparin Sodium (Lovenox) 60 mg DAILY SUBQ 04/24/17 09:00 05/24/17 08:59 04/24/17 08:24 Famotidine (Pepcid) 20 mg DAILY ORAL 04/25/17 09:00 05/25/17 08:59 Gabapentin (Neurontin) 100 mg BID ORAL 04/21/17 18:00 05/21/17 08:59 04/24/17 08:13 Insulin Aspart (NovoLOG) BEFORE MEALS AND HS SUBQ 04/21/17 21:00 05/21/17 06:29 04/24/17 06:04 Menthol/Methyl Salicylate (Bengay) 1 applic Q6H PRN TOPIC BACK PAIN 04/23/17 18:00 05/23/17 17:59 04/24/17 13:05 Metronidazole (Flagyl) 500 mg Q8HR ORAL 04/22/17 14:00 04/29/17 13:59 04/24/17 13:04 Ondansetron HCl (Zofran) 4 mg Q6H PRN IVP Nausea & Vomiting 04/21/17 17:30 05/21/17 17:29 04/24/17 07:29 Paroxetine HCl (Paxil) 10 mg DAILY ORAL 04/22/17 09:00 05/21/17 08:59 04/24/17 08:14 Phenytoin (Dilantin) 400 mg BEDTIME ORAL 04/23/17 21:00 05/21/17 03:29 04/23/17 20:29 Phosphorus (Phospha 250 Neutral) 250 mg THREE TIMES A DAY ORAL 04/22/17 13:00 05/22/17 12:59 04/24/17 13:04 Tramadol HCl (Ultram) 50 mg Q4H PRN ORAL Moderate Breakthru Pain (5-7) 04/21/17 17:30 04/28/17 17:29 04/24/17 08:14 Vancomycin HCl (Vancomycin) 125 mg FOUR TIMES A DAY ORAL 04/24/17 15:00 05/01/17 14:59 04/24/17 15:33 Allergies: Coded Allergies: LATEX (Verified Allergy, Unknown, 04/20/17) ROS Limited/Unobtainable: Yes Subjective 87 YO F admitted with abdominal paina nd fever. Now UTI and sepsis. Also C.Diff positive. Cover for Int Med-Dr Delgado. Objective Last Vital Signs Date Time Temp Pulse Resp B/P (MAP) Pulse Ox O2 Delivery O2 Flow Rate FiO2 04/24/17 16:13 98.0 98 20 99/54 97 04/24/17 00:56 Room Air Laboratory Tests Test 04/24/17 05:40 White Blood Count 4.0 K/UL (4.8-10.8) L Red Blood Count 3.66 M/UL (4.20-5.40) L Hemoglobin 10.7 G/DL (12.0-16.0) L Hematocrit 33.2 % (37.0-47.0) L Mean Corpuscular Volume 91 FL (80-99) Mean Corpuscular Hemoglobin 29.1 PG (27.0-31.0) Mean Corpuscular Hemoglobin Concent 32.1 G/DL (32.0-36.0) Red Cell Distribution Width 16.9 % (11.6-14.8) H Platelet Count 121 K/UL (150-450) L Mean Platelet Volume 5.6 FL (6.5-10.1) L Neutrophils (%) (Auto) 73.5 % (45.0-75.0) Lymphocytes (%) (Auto) 16.9 % (20.0-45.0) L Monocytes (%) (Auto) 8.4 % (1.0-10.0) Eosinophils (%) (Auto) 0.2 % (0.0-3.0) Basophils (%) (Auto) 1.0 % (0.0-2.0) Sodium Level 139 MMOL/L (136-145) Potassium Level 3.8 MMOL/L (3.5-5.1) Chloride Level 105 MMOL/L (98-107) Carbon Dioxide Level 22 MMOL/L (21-32) Anion Gap 12 mmol/L (5-15) Blood Urea Nitrogen 20 mg/dL (7-18) H Creatinine 1.1 MG/DL (0.55-1.30) Estimat Glomerular Filtration Rate mL/min (>60) Glucose Level 162 MG/DL (74-106) H Calcium Level 8.6 MG/DL (8.5-10.1) Microbiology Date/Time Source Procedure Growth Status 04/21/17 18:40 Stool Clostridium difficile Toxin Assay - Final Complete Intake and Output 04/23/17 04/24/17 19:00 07:00 Intake Total 480 ml 55 ml Output Total 1000 ml Balance -520 ml 55 ml Intake Oral 480 ml IV Total 55 ml Output Urine Total 1000 ml # Voids 3 # Bowel Movements 2 2 Objective General Appearance: WD/WN, no apparent distress, alert EENT: PERRL/EOMI, normal ENT inspection, TMs normal Neck: non-tender, normal alignment, supple, normal inspection Cardiovascular: normal peripheral pulses, normal rate, regular rhythm, no gallop/murmur, no JVD Respiratory/Chest: chest wall non-tender, lungs clear, normal breath sounds, no respiratory distress, no accessory muscle use Abdomen: normal bowel sounds, soft, no organomegaly, no mass, decreased bowel sounds, tender Extremities: normal range of motion, non-tender Neurologic: remarketing rep II-XII grossly normal, no motor/sensory deficits Skin: normal pigmentation, warm/dry Assessment/Plan Problem List: (1) Neck pain Assessment & Plan: History of cervical spine fracture. Currently in C-collar (2) Fever (3) Nausea & vomiting Assessment & Plan: Continue zofran prn (4) Diabetes mellitus Assessment & Plan: Continue novolog sliding scale. (5) Hydronephrosis of left kidney Assessment & Plan: Await nephrology consult. (6) Seizure disorder Assessment & Plan: Continue dialntin (7) Clostridium difficile diarrhea Assessment & Plan: Continue oral falgyl Day #2/14 (8) UTI (urinary tract infection) Assessment & Plan: E. Coli. Continue ceftriaxone. (9) Sepsis Assessment & Plan: Gram neg francisco. Await ID consult. Cont IV ceftriaxone for now. (10) Metastatic breast cancer Assessment & Plan: Currently on chemotherapy once per month (11) Abdominal pain Status: not improved HAMLET AMAYA Apr 24, 2017 18:04
[2017-04-24] MEDS: cefTRIAXone 1 GM in D5W 55 ML IVPB SCH (20:47)
[2017-04-24] MEDS: Phenytoin Susp 100mg/4ml ORAL SCH (20:48)
[2017-04-24 23:54] VITALS: BP 125/54
[2017-04-25] MEDS: traMADol 50mg tab ORAL PRN ×2 (01:30→08:44)
[2017-04-25] MEDS: D5 1/2NS 1,000 ML IV SCH ×2 (03:50→16:24)
[2017-04-25 04:00] VITALS: BP 158/69
[2017-04-25] MEDS: metroNIDAZOLE 500mg tab ORAL SCH ×3 (05:45→22:00)
[2017-04-25] MEDS: NovoLOG Insulin Flexpen SUBQ SCH ×4 (05:47→21:00)
[2017-04-25 07:52] LABS: BASOPHILS % (AUTO) 0.7 % (0.0-2.0); EOSINOPHILS % (AUTO) 0.3 % (0.0-3.0); HEMATOCRIT 33.7 % (37.0-47.0); HEMOGLOBIN 10.8 G/DL (12.0-16.0); LYMPHOCYTES % (AUTO) 22.2 % (20.0-45.0); MEAN CORPUSCULAR VOLUME 90 FL (80-99); MONOCYTES % (AUTO) 8.1 % (1.0-10.0); NEUTROPHILS % (AUTO) 68.6 % (45.0-75.0); PLATELET COUNT 174 K/UL (150-450); RED BLOOD COUNT 3.75 M/UL (4.20-5.40); RED CELL DISTRIBUTION WIDTH 16.6 % (11.6-14.8)
[2017-04-25 08:00] VITALS: BP 126/61
[2017-04-25 08:19] LABS: ANION GAP 14 mmol/L (5-15); BLOOD UREA NITROGEN 14 mg/dL (7-18); CALCIUM 8.2 MG/DL (8.5-10.1); CARBON DIOXIDE 23 MMOL/L (21-32); CHLORIDE 102 MMOL/L (98-107); POTASSIUM 3.7 MMOL/L (3.5-5.1); SODIUM 139 MMOL/L (136-145)
[2017-04-25] MEDS: PARoxetine 10mg tab ORAL SCH (08:42)
[2017-04-25] MEDS: Phospha 250 Neutral tab ORAL SCH (08:42)
[2017-04-25] MEDS: Vancomycin oral 125mg/2.5ml ORAL SCH ×4 (08:43→22:00)
[2017-04-25] MEDS: Enoxaparin 60mg Inj SUBQ SCH ×2 (08:48→22:01)
--- NOTE | 2017-04-25 10:04 | Nephrology Progress Note ---
Assessment/Plan Problem List: (1) Renal insufficiency (2) Nausea & vomiting (3) Metastatic breast cancer (4) UTI (urinary tract infection) (5) Anemia (6) C. difficile diarrhea Assessment continues with loose BMs due to C dif Renal failure, Acute with possible underlying chronic Cr lower Dehydration likely due to intractible vomiting Anemia possible sepsis UTI hyponatremia seizure disorder metastatic breast Ca with mets to brain DM HTN but hypotension on presentation left lobe liver lesion Malnutrition Plan Plan; Hydrate Antibiotics- avoid Nephrotoxics- Monitor renal parameters and lytes Watch H&h per orders ? DC planning Subjective ROS Limited/Unobtainable: No Constitutional: Reports: malaise, other - abd pain Objective Objective Last 24 Hour Vital Signs Date Time Temp Pulse Resp B/P (MAP) Pulse Ox O2 Delivery O2 Flow Rate FiO2 04/25/17 08:00 98.1 104 21 126/61 99 04/25/17 04:00 98.0 107 19 158/69 100 04/25/17 02:29 97.9 04/25/17 00:00 100 Room Air 04/24/17 23:54 97.9 100 18 125/54 100 04/24/17 16:13 98.0 98 20 99/54 97 04/24/17 11:50 97.5 56 20 109/61 96 Intake and Output 04/24/17 04/25/17 19:00 07:00 Intake Total 735 ml 905 ml Balance 735 ml 905 ml Intake Oral 360 ml IV Total 375 ml 905 ml # Voids 2 # Bowel Movements 2 10 Laboratory Tests 04/25/17 06:05: White Blood Count 4.0L, Red Blood Count 3.75L, Hemoglobin 10.8L, Hematocrit 33.7L, Mean Corpuscular Volume 90, Mean Corpuscular Hemoglobin 28.8, Mean Corpuscular Hemoglobin Concent 32.1, Red Cell Distribution Width 16.6H, Platelet Count 174, Mean Platelet Volume 6.2L, Neutrophils (%) (Auto) 68.6, Lymphocytes (%) (Auto) 22.2, Monocytes (%) (Auto) 8.1, Eosinophils (%) (Auto) 0.3, Basophils (%) (Auto) 0.7, Sodium Level 139, Potassium Level 3.7, Chloride Level 102, Carbon Dioxide Level 23, Anion Gap 14, Blood Urea Nitrogen 14, Creatinine 1.0, Estimat Glomerular Filtration Rate , Glucose Level 193H, Calcium Level 8.2L Height (Feet): 5 Height (Inches): 5.00 Weight (Pounds): 130 General Appearance: no apparent distress Cardiovascular: tachycardia Abdomen: distended Objective no other changes TARIQ MIRZA Apr 25, 2017 10:04
--- NOTE | 2017-04-25 11:13 | Physician Query ---
THIS DOCUMENT IS PERMANENT PART OF MEDICAL RECORD PLEASE COMPLETE DOCUMENT BEFORE SIGNING Dear ASHOK Hidalgo Date: 04/25/17 [facility] [employer] Name: Yenny Batista [facility] [employer] Phone No.: [phone] Exercise your independent professional judgment when responding to the query. Questions asked do not imply a particular answer is desired or expected. We greatly appreciate your clarification on this issue. CLINICAL DOCUMENTATION STATES:Progress Note (04/23/17) ? Pneumonia (the patient has increase of cough recently) CLINICAL FINDINGS SHOW: Chest XRay (04/21/17) Impression: Bilateral interstitial disease. Some of this is chronic. Whether there is an acute component or merely progressive chronic disease is uncertain. Can you please clarify if Pneumonia: [] Ruled in or [] Ruled out PHYSICIAN RESPONSE: (for additional comments, if there are some) Condition Present on Admission: [] Yes [] No []Clinically Undeterminable Please also document in your Progress Notes and/or Discharge Summary and indicate if the condition was present on admission. Dr. ASHOK HARVEY Date/Time MTDD
--- NOTE | 2017-04-25 11:46 | Infectious Diseases Prog Note ---
Assessment/Plan Assessment/Plan ASSESSMENT: Status post low-grade fever Leukopenia Clostridium difficile colitis Diarrhea Escherichia coli urinary tract infection. 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 ? pneumonia (the patient has increase of cough recently) Chest x-ray, bilateral interstitial disease. Diabetes. Hypertension. Seizure disorder. 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 Abdominal CT, hyperdense lesion in left lower lobe. PLAN: continue the patient on Rocephin day # 5 /14 , Flagyl day # 4 , oral vancomycin d # 2 Monitor CBC. Monitor BMP Monitor chest x-ray Rec Uro eval Subjective Allergies: Coded Allergies: LATEX (Verified Allergy, Unknown, 04/20/17) Subjective confuse Objective Vital Signs Last 24 Hour Vital Signs Date Time Temp Pulse Resp B/P (MAP) Pulse Ox O2 Delivery O2 Flow Rate FiO2 04/25/17 08:00 98.1 104 21 126/61 99 04/25/17 04:00 98.0 107 19 158/69 100 04/25/17 02:29 97.9 04/25/17 00:00 100 Room Air 04/24/17 23:54 97.9 100 18 125/54 100 04/24/17 16:13 98.0 98 20 99/54 97 04/24/17 11:50 97.5 56 20 109/61 96 Height (Feet): 5 Height (Inches): 5.00 Weight (Pounds): 130 HEENT: mucous membranes moist Respiratory/Chest: no accessory muscle use Cardiovascular: no gallop/murmur Abdomen: non distended Laboratory Tests Test 04/25/17 06:05 White Blood Count 4.0 K/UL (4.8-10.8) L Red Blood Count 3.75 M/UL (4.20-5.40) L Hemoglobin 10.8 G/DL (12.0-16.0) L Hematocrit 33.7 % (37.0-47.0) L Mean Corpuscular Volume 90 FL (80-99) Mean Corpuscular Hemoglobin 28.8 PG (27.0-31.0) Mean Corpuscular Hemoglobin Concent 32.1 G/DL (32.0-36.0) Red Cell Distribution Width 16.6 % (11.6-14.8) H Platelet Count 174 K/UL (150-450) Mean Platelet Volume 6.2 FL (6.5-10.1) L Neutrophils (%) (Auto) 68.6 % (45.0-75.0) Lymphocytes (%) (Auto) 22.2 % (20.0-45.0) Monocytes (%) (Auto) 8.1 % (1.0-10.0) Eosinophils (%) (Auto) 0.3 % (0.0-3.0) Basophils (%) (Auto) 0.7 % (0.0-2.0) Sodium Level 139 MMOL/L (136-145) Potassium Level 3.7 MMOL/L (3.5-5.1) Chloride Level 102 MMOL/L (98-107) Carbon Dioxide Level 23 MMOL/L (21-32) Anion Gap 14 mmol/L (5-15) Blood Urea Nitrogen 14 mg/dL (7-18) Creatinine 1.0 MG/DL (0.55-1.30) Estimat Glomerular Filtration Rate mL/min (>60) Glucose Level 193 MG/DL (74-106) H Calcium Level 8.2 MG/DL (8.5-10.1) L Current Medications Medications (Trade) Dose Ordered Sig/Stefan Route PRN Reason Start Time Stop Time Status Last Admin Dose Admin Acetaminophen (Tylenol) 650 mg Q8HR ORAL 04/25/17 11:00 05/25/17 10:59 04/25/17 11:06 Ceftriaxone Sodium 1 gm/ Dextrose 55 ml @ 110 mls/hr Q24H IVPB 04/21/17 21:00 04/28/17 20:59 04/24/17 20:47 Dextrose (Dextrose 50%) STAT PRN IV Hypoglycemia 04/21/17 17:30 05/21/17 17:29 Dextrose/Sodium Chloride 1,000 ml @ 75 mls/hr [id number] IV 04/24/17 13:00 05/24/17 12:59 04/25/17 03:50 Enoxaparin Sodium (Lovenox) 60 mg DAILY SUBQ 04/24/17 09:00 05/24/17 08:59 04/25/17 08:48 Famotidine (Pepcid) 20 mg BID ORAL 04/25/17 18:00 05/25/17 08:59 Gabapentin (Neurontin) 100 mg TID ORAL 04/25/17 13:00 05/21/17 08:59 Insulin Aspart (NovoLOG) BEFORE MEALS AND HS SUBQ 04/21/17 21:00 05/21/17 06:29 04/25/17 05:47 Menthol/Methyl Salicylate (Bengay) 1 applic Q6H PRN TOPIC BACK PAIN 04/23/17 18:00 05/23/17 17:59 04/24/17 13:05 Metronidazole (Flagyl) 500 mg Q8HR ORAL 04/22/17 14:00 04/29/17 13:59 04/25/17 05:45 Ondansetron HCl (Zofran) 4 mg Q6H PRN IVP Nausea & Vomiting 04/21/17 17:30 05/21/17 17:29 04/24/17 07:29 Paroxetine HCl (Paxil) 10 mg DAILY ORAL 04/22/17 09:00 05/21/17 08:59 04/25/17 08:42 Phenytoin (Dilantin) 400 mg BEDTIME ORAL 04/23/17 21:00 05/21/17 03:29 04/24/17 20:48 Tramadol HCl (Ultram) 50 mg Q4H PRN ORAL Moderate Breakthru Pain (5-7) 04/21/17 17:30 04/28/17 17:29 04/25/17 08:44 Vancomycin HCl (Vancomycin) 125 mg FOUR TIMES A DAY ORAL 04/24/17 15:00 05/01/17 14:59 04/25/17 08:43 ASHOK HARVEY M.D. Apr 25, 2017 11:46
[2017-04-25 12:00] VITALS: BP 116/61
--- NOTE | 2017-04-25 12:06 | Cardiac Electrophysiology PN ---
Assessment/Plan Assessment/Plan 1. Sinus tachycardia due to UTI and sepsis. No evidence of atrial fibrillation. Echocardiogram still pending 2. History of hypertension, currently off antihypertensive agents. 3. History of seizures, on Neurontin. 4. Renal failure. 5. Hyponatremia. Resolved Na 136 6. UTI and sepsis on iv ABx 7. C Dif Colitis on Flagyl and Vanco. Still has diarrhea DW RN and daughter Subjective Subjective On NMB. RN and sitter and Daughter at bedside.Still in isolation for C Diff and still has active diarrhea Objective Last 24 Hour Vital Signs Date Time Temp Pulse Resp B/P (MAP) Pulse Ox O2 Delivery O2 Flow Rate FiO2 04/25/17 08:00 98.1 104 21 126/61 99 04/25/17 04:00 98.0 107 19 158/69 100 04/25/17 02:29 97.9 04/25/17 00:00 100 Room Air 04/24/17 23:54 97.9 100 18 125/54 100 04/24/17 16:13 98.0 98 20 99/54 97 Intake and Output 04/24/17 04/25/17 19:00 07:00 Intake Total 735 ml 905 ml Balance 735 ml 905 ml Intake Oral 360 ml IV Total 375 ml 905 ml # Voids 2 # Bowel Movements 2 10 Laboratory Tests Test 04/25/17 06:05 White Blood Count 4.0 K/UL (4.8-10.8) L Red Blood Count 3.75 M/UL (4.20-5.40) L Hemoglobin 10.8 G/DL (12.0-16.0) L Hematocrit 33.7 % (37.0-47.0) L Mean Corpuscular Volume 90 FL (80-99) Mean Corpuscular Hemoglobin 28.8 PG (27.0-31.0) Mean Corpuscular Hemoglobin Concent 32.1 G/DL (32.0-36.0) Red Cell Distribution Width 16.6 % (11.6-14.8) H Platelet Count 174 K/UL (150-450) Mean Platelet Volume 6.2 FL (6.5-10.1) L Neutrophils (%) (Auto) 68.6 % (45.0-75.0) Lymphocytes (%) (Auto) 22.2 % (20.0-45.0) Monocytes (%) (Auto) 8.1 % (1.0-10.0) Eosinophils (%) (Auto) 0.3 % (0.0-3.0) Basophils (%) (Auto) 0.7 % (0.0-2.0) Sodium Level 139 MMOL/L (136-145) Potassium Level 3.7 MMOL/L (3.5-5.1) Chloride Level 102 MMOL/L (98-107) Carbon Dioxide Level 23 MMOL/L (21-32) Anion Gap 14 mmol/L (5-15) Blood Urea Nitrogen 14 mg/dL (7-18) Creatinine 1.0 MG/DL (0.55-1.30) Estimat Glomerular Filtration Rate mL/min (>60) Glucose Level 193 MG/DL (74-106) H Calcium Level 8.2 MG/DL (8.5-10.1) L Objective HEAD AND NECK: No JVD. LUNGS: Coarse rhonchi. CARDIOVASCULAR: Regular S1 and S2. Mildly tachycardic. ABDOMEN: Soft. EXTREMITIES: No pitting edema. PENELOPE CORONA Apr 25, 2017 12:06
--- NOTE | 2017-04-25 12:10 | Internal Med Progress Note ---
Subjective Date of Service: Apr 25, 2017 Physician Name Hamlet Amaya Attending Physician Keon Mixon MD Current Medications Medications (Trade) Dose Ordered Sig/Stefan Route PRN Reason Start Time Stop Time Status Last Admin Dose Admin Acetaminophen (Tylenol) 650 mg Q8HR ORAL 04/25/17 11:00 05/25/17 10:59 04/25/17 11:06 Ceftriaxone Sodium 1 gm/ Dextrose 55 ml @ 110 mls/hr Q24H IVPB 04/21/17 21:00 04/28/17 20:59 04/24/17 20:47 Dextrose (Dextrose 50%) STAT PRN IV Hypoglycemia 04/21/17 17:30 05/21/17 17:29 Dextrose/Sodium Chloride 1,000 ml @ 75 mls/hr [id number] IV 04/24/17 13:00 05/24/17 12:59 04/25/17 03:50 Enoxaparin Sodium (Lovenox) 60 mg DAILY SUBQ 04/24/17 09:00 05/24/17 08:59 04/25/17 08:48 Famotidine (Pepcid) 20 mg BID ORAL 04/25/17 18:00 05/25/17 08:59 Gabapentin (Neurontin) 100 mg TID ORAL 04/25/17 13:00 05/21/17 08:59 Insulin Aspart (NovoLOG) BEFORE MEALS AND HS SUBQ 04/21/17 21:00 05/21/17 06:29 04/25/17 11:43 Menthol/Methyl Salicylate (Bengay) 1 applic Q6H PRN TOPIC BACK PAIN 04/23/17 18:00 05/23/17 17:59 04/24/17 13:05 Metronidazole (Flagyl) 500 mg Q8HR ORAL 04/22/17 14:00 04/29/17 13:59 04/25/17 05:45 Ondansetron HCl (Zofran) 4 mg Q6H PRN IVP Nausea & Vomiting 04/21/17 17:30 05/21/17 17:29 04/24/17 07:29 Paroxetine HCl (Paxil) 10 mg DAILY ORAL 04/22/17 09:00 05/21/17 08:59 04/25/17 08:42 Phenytoin (Dilantin) 400 mg BEDTIME ORAL 04/23/17 21:00 05/21/17 03:29 04/24/17 20:48 Tramadol HCl (Ultram) 50 mg Q4H PRN ORAL Moderate Breakthru Pain (5-7) 04/21/17 17:30 04/28/17 17:29 04/25/17 08:44 Vancomycin HCl (Vancomycin) 125 mg FOUR TIMES A DAY ORAL 04/24/17 15:00 05/01/17 14:59 04/25/17 08:43 Allergies: Coded Allergies: LATEX (Verified Allergy, Unknown, 04/20/17) ROS Limited/Unobtainable: No Constitutional: Reports: no symptoms HEENT: Reports: no symptoms Cardiovascular: Reports: no symptoms Respiratory: Reports: no symptoms Gastrointestinal/Abdominal: Reports: no symptoms Genitourinary: Reports: no symptoms Neurologic/Psychiatric: Reports: no symptoms Subjective 87 YO F admitted with abdominal paina nd fever. Now UTI and sepsis. Also C.Diff positive. Cover for Int Jerad-Dr Mixon. Objective Last Vital Signs Date Time Temp Pulse Resp B/P (MAP) Pulse Ox O2 Delivery O2 Flow Rate FiO2 04/25/17 08:00 98.1 104 21 126/61 99 04/25/17 00:00 Room Air Laboratory Tests Test 04/25/17 06:05 White Blood Count 4.0 K/UL (4.8-10.8) L Red Blood Count 3.75 M/UL (4.20-5.40) L Hemoglobin 10.8 G/DL (12.0-16.0) L Hematocrit 33.7 % (37.0-47.0) L Mean Corpuscular Volume 90 FL (80-99) Mean Corpuscular Hemoglobin 28.8 PG (27.0-31.0) Mean Corpuscular Hemoglobin Concent 32.1 G/DL (32.0-36.0) Red Cell Distribution Width 16.6 % (11.6-14.8) H Platelet Count 174 K/UL (150-450) Mean Platelet Volume 6.2 FL (6.5-10.1) L Neutrophils (%) (Auto) 68.6 % (45.0-75.0) Lymphocytes (%) (Auto) 22.2 % (20.0-45.0) Monocytes (%) (Auto) 8.1 % (1.0-10.0) Eosinophils (%) (Auto) 0.3 % (0.0-3.0) Basophils (%) (Auto) 0.7 % (0.0-2.0) Sodium Level 139 MMOL/L (136-145) Potassium Level 3.7 MMOL/L (3.5-5.1) Chloride Level 102 MMOL/L (98-107) Carbon Dioxide Level 23 MMOL/L (21-32) Anion Gap 14 mmol/L (5-15) Blood Urea Nitrogen 14 mg/dL (7-18) Creatinine 1.0 MG/DL (0.55-1.30) Estimat Glomerular Filtration Rate mL/min (>60) Glucose Level 193 MG/DL (74-106) H Calcium Level 8.2 MG/DL (8.5-10.1) L Intake and Output 04/24/17 04/25/17 19:00 07:00 Intake Total 735 ml 905 ml Balance 735 ml 905 ml Intake Oral 360 ml IV Total 375 ml 905 ml # Voids 2 # Bowel Movements 2 10 Objective General Appearance: WD/WN, no apparent distress, alert EENT: PERRL/EOMI, normal ENT inspection, TMs normal Neck: non-tender, normal alignment, supple, normal inspection Cardiovascular: normal peripheral pulses, normal rate, regular rhythm, no gallop/murmur, no JVD Respiratory/Chest: chest wall non-tender, lungs clear, normal breath sounds, no respiratory distress, no accessory muscle use Abdomen: normal bowel sounds, soft, no organomegaly, no mass, decreased bowel sounds, tender Extremities: normal range of motion, non-tender Neurologic: exhibition specialist II-XII grossly normal, no motor/sensory deficits Skin: normal pigmentation, warm/dry Assessment/Plan Problem List: (1) Neck pain Assessment & Plan: History of cervical spine fracture. Currently in C-collar. Await cervical spine xray (2) Fever (3) Nausea & vomiting Assessment & Plan: Continue zofran prn (4) Diabetes mellitus Assessment & Plan: Continue novolog sliding scale. (5) Hydronephrosis of left kidney Assessment & Plan: Await nephrology consult. (6) Seizure disorder Assessment & Plan: Continue dialntin (7) Clostridium difficile diarrhea Assessment & Plan: Continue oral falgyl Day #05/16 (8) UTI (urinary tract infection) Assessment & Plan: E. Coli. Continue ceftriaxone. (9) Sepsis Assessment & Plan: E.Coli. See ID consult. Cont IV ceftriaxone for now. (10) Metastatic breast cancer Assessment & Plan: Currently on chemotherapy once per month (11) Abdominal pain HAMLET AMAYA Apr 25, 2017 12:10
--- NOTE | 2017-04-25 15:11 | Diagnostic Imaging Report ---
Indications: History of cervical fracture, pain Technique: Four views of the cervical spine Comparison: None Findings: Exam is very limited. Per technologist, patient was unable to cooperate optimally an use of portable technique and bedside also limits evaluation. In addition dental and other overlying hardware limits evaluation. There appears to be about 4 mm of posterior offset of the odontoid relative to its base on the lateral view. This area is very poorly visualized, and it is unclear whether there is a fracture line present or not. The odontoid views are completely nondiagnostic due to positioning difficulties as well as extensive overlying dental hardware obscuring the area. The remainder of the bony alignment is grossly normal although visualization is markedly suboptimal. The vertebral body heights are preserved. No other definite acute fractures or dislocations. There is suspicion of degenerative change at the lower cervical disc levels. There is evidence of lower cervical neural foraminal stenosis, although this is likewise poorly visualized. There is equivocal degenerative disc narrowing Impression:Very limited, borderline nondiagnostic, images, as described Findings suspicious for odontoid fracture deformity, as described, acuity and degree of healing indeterminate. Consider CT for more sensitive and specific characterization Degenerative changes are Findings discussed by phone with Dr. Hoff at the time of interpretation
--- NOTE | 2017-04-25 15:15 | Cardiology Report ---
APPROVED REPORT EXAM: Two-dimensional and M-mode echocardiogram with Doppler and color Doppler. INDICATION Congestive Heart Failure M-Mode DIMENSIONS IVSd1.5 (0.7-1.1cm)Left Atrium (MM)3.5 (1.6-4.0cm) LVDd3.7 (3.5-5.6cm)Aortic Root2.9 (2.0-3.7cm) PWd1.2 (0.7-1.1cm)Aortic Cusp Exc.1.1 (1.5-2.0cm) IVSs1.1 cm LVDs3.0 (2.5-4.0cm) PWs1.3 cm Mild left ventricular enlargements . Global left ventricular hypokinesis. Left ventricular ejection fraction estimated to be 35-40 %. Mild left ventricular hypertrophy by 2-D. No evidence of pericardial effusion Mild left atrial enlargements . Right chamber sizes are within normal limits . Aortic valve calcification with decreased cusp excursion c/w mild aortic stenosis. Thickened mitral valve leaflets with normal excursion. Mitral annulus and aortic root calcification. Pulmonic valve not well visualized. Normal tricuspid valve structure. IVC at normal size with physiologic collapse. A color flow and spectral Doppler study was performed and revealed: Moderate aortic regurgitation. Peak aortic valve gradient of 21 mm Hg and a mean of 7 mmHg. Aortic valve area 1.8 cm2 calculated by continuity equation suggestive of Mild aortic stenosis. Mild to moderate mitral regurgitation. Mitral inflow velocities indicates possible pseudo normalization pattern implying moderately elevated left atrial pressure (Grade II ). Trace tricuspid regurgitation. Tricuspid systolic velocities suggests peak right ventricular systolic pressure of 23 mmHg. No Pulmonic regurgitation present.
[2017-04-25 16:00] VITALS: BP 113/55
--- NOTE | 2017-04-25 17:47 | Consultation ---
History of Present Illness General Date patient seen: Apr 25, 2017 Time patient seen: 12:15 Chief Complaint: Vomiting Referring physician: dr Mixon Reason for Consultation: inpatient management Present Illness HPI 87 yo female admitted for fever weakness workup. Found to have likely UTI. 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 Discussed case with caregiver. Allergies: Coded Allergies: LATEX (Verified Allergy, Unknown, 04/20/17) Medication History Scheduled Enoxaparin* (Lovenox*), 60 MG SUBQ DAILY, (Reported) Gabapentin* (Gabapentin*), 100 MG ORAL BID, (Reported) Metformin Hcl* (Metformin Hcl*), 500 MG ORAL TWICE A DAY, (Reported) Paroxetine Hcl* (Paroxetine Hcl*), 20 MG ORAL DAILY, (Reported) Phenytoin Sodium Extended* (Phenytoin Sodium Extended*), 400 MG ORAL BEDTIME, ( Reported) Scheduled PRN Ondansetron Hcl* (Zofran*), 8 MG ORAL Q6H PRN for Nausea & Vomiting, (Reported) Tramadol Hcl* (Ultram*), 50 MG ORAL BID PRN for For Pain, (Reported) Discontinued Medications Albuterol Sulfate* (Albuterol Sulfate Mdi*), 2 PUFF INH Q4H Discontinued Reason: Pt stopped taking med Azithromycin* (Zithromax*), 250 MG ORAL DAILY Discontinued Reason: Pt stopped taking med Metformin Hcl* (Metformin Hcl*), 1,000 MG ORAL BID, (Reported) Discontinued Reason: Pt stopped taking med Patient History Limited by: medical condition History Provided By: Family Member, Medical Record Healthcare decision maker Resuscitation status Full Code Advanced Directive on File Past Medical/Surgical History Past Medical/Surgical History: (1) Renal insufficiency (2) Metastatic breast cancer (3) C. difficile diarrhea Review of Systems All Other Systems: negative except mentioned in HPI Physical Exam General Appearance: moderate distress HEENT: atraumatic Abdomen: soft Skin Exam: warm/dry Neurologic: alert Last 24 Hour Vital Signs Date Time Temp Pulse Resp B/P (MAP) Pulse Ox O2 Delivery O2 Flow Rate FiO2 04/25/17 12:00 97.9 103 20 116/61 97 04/25/17 08:00 98.1 104 21 126/61 99 04/25/17 04:00 98.0 107 19 158/69 100 04/25/17 02:29 97.9 04/25/17 00:00 100 Room Air 04/24/17 23:54 97.9 100 18 125/54 100 Intake and Output 04/24/17 04/25/17 19:00 07:00 Intake Total 735 ml 905 ml Balance 735 ml 905 ml Intake Oral 360 ml IV Total 375 ml 905 ml # Voids 2 # Bowel Movements 2 10 Laboratory Tests Test 04/25/17 06:05 White Blood Count 4.0 K/UL (4.8-10.8) L Red Blood Count 3.75 M/UL (4.20-5.40) L Hemoglobin 10.8 G/DL (12.0-16.0) L Hematocrit 33.7 % (37.0-47.0) L Mean Corpuscular Volume 90 FL (80-99) Mean Corpuscular Hemoglobin 28.8 PG (27.0-31.0) Mean Corpuscular Hemoglobin Concent 32.1 G/DL (32.0-36.0) Red Cell Distribution Width 16.6 % (11.6-14.8) H Platelet Count 174 K/UL (150-450) Mean Platelet Volume 6.2 FL (6.5-10.1) L Neutrophils (%) (Auto) 68.6 % (45.0-75.0) Lymphocytes (%) (Auto) 22.2 % (20.0-45.0) Monocytes (%) (Auto) 8.1 % (1.0-10.0) Eosinophils (%) (Auto) 0.3 % (0.0-3.0) Basophils (%) (Auto) 0.7 % (0.0-2.0) Sodium Level 139 MMOL/L (136-145) Potassium Level 3.7 MMOL/L (3.5-5.1) Chloride Level 102 MMOL/L (98-107) Carbon Dioxide Level 23 MMOL/L (21-32) Anion Gap 14 mmol/L (5-15) Blood Urea Nitrogen 14 mg/dL (7-18) Creatinine 1.0 MG/DL (0.55-1.30) Estimat Glomerular Filtration Rate mL/min (>60) Glucose Level 193 MG/DL (74-106) H Calcium Level 8.2 MG/DL (8.5-10.1) L Height (Feet): 5 Height (Inches): 5.00 Weight (Pounds): 130 Medications Current Medications Medications (Trade) Dose Ordered Sig/Stefan Route PRN Reason Start Time Stop Time Status Last Admin Dose Admin Acetaminophen (Tylenol) 650 mg Q8HR ORAL 04/25/17 11:00 05/25/17 10:59 04/25/17 11:06 Ceftriaxone Sodium 1 gm/ Dextrose 55 ml @ 110 mls/hr Q24H IVPB 04/21/17 21:00 04/28/17 20:59 04/24/17 20:47 Dextrose (Dextrose 50%) STAT PRN IV Hypoglycemia 04/21/17 17:30 05/21/17 17:29 Dextrose/Sodium Chloride 1,000 ml @ 75 mls/hr [id number] IV 04/24/17 13:00 05/24/17 12:59 04/25/17 16:24 Enoxaparin Sodium (Lovenox) 60 mg Q12HR SUBQ 04/25/17 21:00 05/24/17 08:59 Famotidine (Pepcid) 20 mg BID ORAL 04/25/17 18:00 05/25/17 08:59 04/25/17 17:11 Gabapentin (Neurontin) 100 mg TID ORAL 04/25/17 13:00 05/21/17 08:59 04/25/17 17:11 Insulin Aspart (NovoLOG) BEFORE MEALS AND HS SUBQ 04/21/17 21:00 05/21/17 06:29 04/25/17 17:05 Menthol/Methyl Salicylate (Bengay) 1 applic Q6H PRN TOPIC BACK PAIN 04/23/17 18:00 05/23/17 17:59 04/24/17 13:05 Metronidazole (Flagyl) 500 mg Q8HR ORAL 04/22/17 14:00 04/29/17 13:59 04/25/17 13:22 Ondansetron HCl (Zofran) 4 mg Q6H PRN IVP Nausea & Vomiting 04/21/17 17:30 05/21/17 17:29 04/24/17 07:29 Paroxetine HCl (Paxil) 10 mg DAILY ORAL 04/22/17 09:00 05/21/17 08:59 04/25/17 08:42 Phenytoin (Dilantin) 400 mg BEDTIME ORAL 04/23/17 21:00 05/21/17 03:29 04/24/17 20:48 Tramadol HCl (Ultram) 50 mg Q4H PRN ORAL Moderate Breakthru Pain (5-7) 04/21/17 17:30 04/28/17 17:29 04/25/17 08:44 Vancomycin HCl (Vancomycin) 125 mg FOUR TIMES A DAY ORAL 04/24/17 15:00 05/01/17 14:59 04/25/17 17:[address] and ultrasound reviewed Assessment/Plan Status: stable Assessment/Plan 87 yo female with 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 Whatever the cause, not likely related to current condition. Likely congenital findings so would not recommend any intervention. 1. no intervention Eliseo Blanchard M.D. Apr 25, 2017 17:47
--- NOTE | 2017-04-25 18:50 | Pulmonology Progress Note ---
Assessment/Plan Problems: (1) UTI (urinary tract infection) (2) Diabetes mellitus (3) Clostridium difficile diarrhea (4) Hydronephrosis of left kidney (5) Metastatic breast cancer Assessment/Plan no new event doing better MRI pending IV abx check cultures symptomatic treatment check electrolytes pain management Subjective ROS Limited/Unobtainable: No Interval Events: late note for 04/24 Constitutional: Reports: no symptoms HEENT: Repors: no symptoms Allergies: Coded Allergies: LATEX (Verified Allergy, Unknown, 04/20/17) Objective Last 24 Hour Vital Signs Date Time Temp Pulse Resp B/P (MAP) Pulse Ox O2 Delivery O2 Flow Rate FiO2 04/25/17 16:00 97.8 103 21 113/55 98 04/25/17 12:00 97.9 103 20 116/61 97 04/25/17 08:00 98.1 104 21 126/61 99 04/25/17 04:00 98.0 107 19 158/69 100 04/25/17 02:29 97.9 04/25/17 00:00 100 Room Air 04/24/17 23:54 97.9 100 18 125/54 100 Intake and Output 04/24/17 04/25/17 19:00 07:00 Intake Total 735 ml 905 ml Balance 735 ml 905 ml Intake Oral 360 ml IV Total 375 ml 905 ml # Voids 2 # Bowel Movements 2 10 General Appearance: cachetic HEENT: normocephalic, atraumatic Respiratory/Chest: chest wall non-tender, lungs clear Breasts: no masses Cardiovascular: normal rate Abdomen: normal bowel sounds Genitourinary: normal external genitalia Laboratory Tests 04/25/17 06:05: White Blood Count 4.0L, Red Blood Count 3.75L, Hemoglobin 10.8L, Hematocrit 33.7L, Mean Corpuscular Volume 90, Mean Corpuscular Hemoglobin 28.8, Mean Corpuscular Hemoglobin Concent 32.1, Red Cell Distribution Width 16.6H, Platelet Count 174, Mean Platelet Volume 6.2L, Neutrophils (%) (Auto) 68.6, Lymphocytes (%) (Auto) 22.2, Monocytes (%) (Auto) 8.1, Eosinophils (%) (Auto) 0.3, Basophils (%) (Auto) 0.7, Sodium Level 139, Potassium Level 3.7, Chloride Level 102, Carbon Dioxide Level 23, Anion Gap 14, Blood Urea Nitrogen 14, Creatinine 1.0, Estimat Glomerular Filtration Rate , Glucose Level 193H, Calcium Level 8.2L Current Medications Medications (Trade) Dose Ordered Sig/Stefan Route PRN Reason Start Time Stop Time Status Last Admin Dose Admin Acetaminophen (Tylenol) 650 mg Q8HR ORAL 04/25/17 11:00 05/25/17 10:59 04/25/17 11:06 Ceftriaxone Sodium 1 gm/ Dextrose 55 ml @ 110 mls/hr Q24H IVPB 04/21/17 21:00 04/28/17 20:59 04/24/17 20:47 Dextrose (Dextrose 50%) STAT PRN IV Hypoglycemia 04/21/17 17:30 05/21/17 17:29 Dextrose/Sodium Chloride 1,000 ml @ 75 mls/hr [id number] IV 04/24/17 13:00 05/24/17 12:59 04/25/17 16:24 Enoxaparin Sodium (Lovenox) 60 mg Q12HR SUBQ 04/25/17 21:00 05/24/17 08:59 Famotidine (Pepcid) 20 mg BID ORAL 04/25/17 18:00 05/25/17 08:59 04/25/17 17:11 Gabapentin (Neurontin) 100 mg TID ORAL 04/25/17 13:00 05/21/17 08:59 04/25/17 17:11 Insulin Aspart (NovoLOG) BEFORE MEALS AND HS SUBQ 04/21/17 21:00 05/21/17 06:29 04/25/17 17:05 Menthol/Methyl Salicylate (Bengay) 1 applic Q6H PRN TOPIC BACK PAIN 04/23/17 18:00 05/23/17 17:59 04/24/17 13:05 Metronidazole (Flagyl) 500 mg Q8HR ORAL 04/22/17 14:00 04/29/17 13:59 04/25/17 13:22 Ondansetron HCl (Zofran) 4 mg Q6H PRN IVP Nausea & Vomiting 04/21/17 17:30 05/21/17 17:29 04/24/17 07:29 Paroxetine HCl (Paxil) 10 mg DAILY ORAL 04/22/17 09:00 05/21/17 08:59 04/25/17 08:42 Phenytoin (Dilantin) 400 mg BEDTIME ORAL 04/23/17 21:00 05/21/17 03:29 04/24/17 20:48 Tramadol HCl (Ultram) 50 mg Q4H PRN ORAL Moderate Breakthru Pain (5-7) 04/21/17 17:30 04/28/17 17:29 04/25/17 08:44 Vancomycin HCl (Vancomycin) 125 mg FOUR TIMES A DAY ORAL 04/24/17 15:00 05/01/17 14:59 04/25/17 17:11 MOJGAN NAPOLES Apr 25, 2017 18:50
--- NOTE | 2017-04-25 18:52 | Pulmonology Progress Note ---
Assessment/Plan Problems: (1) Cervical spine fracture (2) UTI (urinary tract infection) (3) Diabetes mellitus (4) Clostridium difficile diarrhea (5) Hydronephrosis of left kidney (6) Metastatic breast cancer Assessment/Plan no new event doing better MRI pending IV abx check cultures symptomatic treatment check electrolytes pain management d/w radiologist, he recommended CT of C spine to determine the acuity of the findings. Subjective ROS Limited/Unobtainable: No Constitutional: Reports: no symptoms HEENT: Repors: no symptoms Allergies: Coded Allergies: LATEX (Verified Allergy, Unknown, 04/20/17) Objective Last 24 Hour Vital Signs Date Time Temp Pulse Resp B/P (MAP) Pulse Ox O2 Delivery O2 Flow Rate FiO2 04/25/17 16:00 97.8 103 21 113/55 98 04/25/17 12:00 97.9 103 20 116/61 97 04/25/17 08:00 98.1 104 21 126/61 99 04/25/17 04:00 98.0 107 19 158/69 100 04/25/17 02:29 97.9 04/25/17 00:00 100 Room Air 04/24/17 23:54 97.9 100 18 125/54 100 Intake and Output 04/24/17 04/25/17 19:00 07:00 Intake Total 735 ml 905 ml Balance 735 ml 905 ml Intake Oral 360 ml IV Total 375 ml 905 ml # Voids 2 # Bowel Movements 2 10 General Appearance: cachetic HEENT: normocephalic, atraumatic Respiratory/Chest: chest wall non-tender, lungs clear Breasts: no masses Cardiovascular: normal peripheral pulses Abdomen: normal bowel sounds Extremities: no cyanosis Skin: no ulcers 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 Laboratory Tests 04/25/17 06:05: White Blood Count 4.0L, Red Blood Count 3.75L, Hemoglobin 10.8L, Hematocrit 33.7L, Mean Corpuscular Volume 90, Mean Corpuscular Hemoglobin 28.8, Mean Corpuscular Hemoglobin Concent 32.1, Red Cell Distribution Width 16.6H, Platelet Count 174, Mean Platelet Volume 6.2L, Neutrophils (%) (Auto) 68.6, Lymphocytes (%) (Auto) 22.2, Monocytes (%) (Auto) 8.1, Eosinophils (%) (Auto) 0.3, Basophils (%) (Auto) 0.7, Sodium Level 139, Potassium Level 3.7, Chloride Level 102, Carbon Dioxide Level 23, Anion Gap 14, Blood Urea Nitrogen 14, Creatinine 1.0, Estimat Glomerular Filtration Rate , Glucose Level 193H, Calcium Level 8.2L Current Medications Medications (Trade) Dose Ordered Sig/Stefan Route PRN Reason Start Time Stop Time Status Last Admin Dose Admin Acetaminophen (Tylenol) 650 mg Q8HR ORAL 04/25/17 11:00 05/25/17 10:59 04/25/17 11:06 Ceftriaxone Sodium 1 gm/ Dextrose 55 ml @ 110 mls/hr Q24H IVPB 04/21/17 21:00 04/28/17 20:59 04/24/17 20:47 Dextrose (Dextrose 50%) STAT PRN IV Hypoglycemia 04/21/17 17:30 05/21/17 17:29 Dextrose/Sodium Chloride 1,000 ml @ 75 mls/hr [id number] IV 04/24/17 13:00 05/24/17 12:59 04/25/17 16:24 Enoxaparin Sodium (Lovenox) 60 mg Q12HR SUBQ 04/25/17 21:00 05/24/17 08:59 Famotidine (Pepcid) 20 mg BID ORAL 04/25/17 18:00 05/25/17 08:59 04/25/17 17:11 Gabapentin (Neurontin) 100 mg TID ORAL 04/25/17 13:00 05/21/17 08:59 04/25/17 17:11 Insulin Aspart (NovoLOG) BEFORE MEALS AND HS SUBQ 04/21/17 21:00 05/21/17 06:29 04/25/17 17:05 Menthol/Methyl Salicylate (Bengay) 1 applic Q6H PRN TOPIC BACK PAIN 04/23/17 18:00 05/23/17 17:59 04/24/17 13:05 Metronidazole (Flagyl) 500 mg Q8HR ORAL 04/22/17 14:00 04/29/17 13:59 04/25/17 13:22 Ondansetron HCl (Zofran) 4 mg Q6H PRN IVP Nausea & Vomiting 04/21/17 17:30 05/21/17 17:29 04/24/17 07:29 Paroxetine HCl (Paxil) 10 mg DAILY ORAL 04/22/17 09:00 05/21/17 08:59 04/25/17 08:42 Phenytoin (Dilantin) 400 mg BEDTIME ORAL 04/23/17 21:00 05/21/17 03:29 04/24/17 20:48 Tramadol HCl (Ultram) 50 mg Q4H PRN ORAL Moderate Breakthru Pain (5-7) 04/21/17 17:30 04/28/17 17:29 04/25/17 08:44 Vancomycin HCl (Vancomycin) 125 mg FOUR TIMES A DAY ORAL 04/24/17 15:00 05/01/17 14:59 04/25/17 17:11 MOJGAN NAPOLES Apr 25, 2017 18:52
[2017-04-25] MEDS: cefTRIAXone 1 GM in D5W 55 ML IVPB SCH (21:59)
[2017-04-25] MEDS: Phenytoin Susp 100mg/4ml ORAL SCH (22:00)
[2017-04-26] VITALS: BP 111/50
[2017-04-26 04:00] VITALS: BP 131/66
[2017-04-26] MEDS: D5 1/2NS 1,000 ML IV SCH ×2 (05:00→15:47)
[2017-04-26] MEDS: metroNIDAZOLE 500mg tab ORAL SCH ×3 (05:51→21:38)
[2017-04-26] MEDS: NovoLOG Insulin Flexpen SUBQ SCH ×4 (05:52→20:40)
[2017-04-26 07:51] LABS: BASOPHILS % (AUTO) 1.2 % (0.0-2.0); EOSINOPHILS % (AUTO) 0.5 % (0.0-3.0); HEMATOCRIT 30.3 % (37.0-47.0); HEMOGLOBIN 9.9 G/DL (12.0-16.0); MEAN CORPUSCULAR VOLUME 90 FL (80-99); MONOCYTES % (AUTO) 7.8 % (1.0-10.0); NEUTROPHILS % (AUTO) 71.4 % (45.0-75.0); PLATELET COUNT 187 K/UL (150-450); RED BLOOD COUNT 3.38 M/UL (4.20-5.40); RED CELL DISTRIBUTION WIDTH 16.5 % (11.6-14.8); WHITE BLOOD COUNT 5.3 K/UL (4.8-10.8)
[2017-04-26 08:00] VITALS: BP 101/51
[2017-04-26] MEDS: PARoxetine 10mg tab ORAL SCH (08:23)
[2017-04-26] MEDS: Enoxaparin 60mg Inj SUBQ SCH ×2 (08:24→20:40)
[2017-04-26 08:30] LABS: ALANINE AMINOTRANSFERASE 12 U/L (12-78); ALBUMIN/GLOBULIN RATIO 0.5 (1.0-2.7); ALKALINE PHOSPHATASE 67 U/L (46-116); ANION GAP 12 mmol/L (5-15); ASPARTATE AMINO TRANSFERASE 20 U/L (15-37); BILIRUBIN,TOTAL 0.2 MG/DL (0.2-1.0); BLOOD UREA NITROGEN 12 mg/dL (7-18); CALCIUM 8.3 MG/DL (8.5-10.1); CARBON DIOXIDE 21 MMOL/L (21-32); CHLORIDE 108 MMOL/L (98-107); CREATININE 1.2 MG/DL (0.55-1.30); PHOSPHORUS 3.6 MG/DL (2.5-4.9); POTASSIUM 3.6 MMOL/L (3.5-5.1); SODIUM 141 MMOL/L (136-145)
[2017-04-26] MEDS: Vancomycin oral 125mg/2.5ml ORAL SCH ×4 (09:07→20:47)
--- NOTE | 2017-04-26 11:18 | Diagnostic Imaging Report ---
Indication: Pain, history of cervical spine fracture Technique: Spiral acquisitions obtained through the cervical spine. No IV contrast utilized. Multiplanar reconstructions were generated. Total dose length product 263.32 mGycm. CTDIvol(s) 12.47 mGy. Dose reduction achieved using automated exposure control. Comparison: Reference made to plain radiographs 04/25/2017 Findings: There is a fracture of the base of the odontoid. This is distracted by 4 mm, posteriorly displaced by 3 mm. The fracture lines are somewhat indistinct but there is also some sclerosis along the edges of the fracture lines, indicating fractures likely subacute. This does not result in any significant compromise of the spinal canal. There is a lucency incompletely through the C3 spinous process, could indicate a mostly healed fracture. No other evidence of acute fracture demonstrated. The remainder the bony alignment is normal. The vertebral body heights are preserved. The disc spaces are preserved. At C3-4, there is mild neural foraminal stenosis on the left due to facet arthrosis. No disc bulge or protrusion or spinal stenosis. At C4-5, no significant disc bulge or protrusion, spinal stenosis, or neural foraminal narrowing. There is facet arthrosis on the left. At C5-6, there is mild right neural foraminal stenosis due to uncinate hypertrophy. No significant disc bulge or protrusion. There is facet arthrosis bilaterally, left greater than right. At C6-7, there is mild degenerative disc narrowing posteriorly. No significant disc bulge or protrusion or spinal stenosis. There is minimal bilateral facet arthrosis. At C7-T1, no significant disc bulge or protrusion, spinal stenosis, or neural foraminal stenosis. There are multiple partially calcified thyroid nodules, including a large 3.5 cm lower pole nodule on the right. Impression: Posterior displaced base fracture, as described. Appearance suggests that this is a subacute fracture. Clinical history describes prior cervical spine fracture. Correlate with prior clinical findings and any prior imaging that may be available. Fracture does not result in any significant spinal canal compromise Possible nearly completely healed C3 spinous process fracture No acute bony trauma otherwise Degenerative changes as detailed on a level by level basis above Bilateral thyroid nodules, including 3.5 cm right lower pole nodule. Consider ultrasound for further evaluation if this has not been worked up previously The CT scanner at [facility] is accredited by the [employer] and the scans are performed using protocols designed to limit radiation exposure to as low as reasonably achievable to attain images of sufficient resolution adequate for diagnostic evaluation.
[2017-04-26 12:00] VITALS: BP 108/52
--- NOTE | 2017-04-26 14:32 | Nephrology Progress Note ---
Assessment/Plan Problem List: (1) Renal insufficiency (2) Nausea & vomiting (3) Metastatic breast cancer (4) UTI (urinary tract infection) (5) Anemia (6) C. 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 DC planning Subjective ROS Limited/Unobtainable: No Constitutional: Reports: malaise Objective Objective Last 24 Hour Vital Signs Date Time Temp Pulse Resp B/P (MAP) Pulse Ox O2 Delivery O2 Flow Rate FiO2 04/26/17 12:00 96.4 104 20 108/52 98 04/26/17 08:00 97.7 100 20 101/51 96 04/26/17 07:10 98.2 04/26/17 04:00 97.9 104 18 131/66 96 04/26/17 00:00 98.2 109 19 111/50 97 04/25/17 16:00 97.8 103 21 113/55 98 Intake and Output 04/25/17 04/26/17 19:00 07:00 Intake Total 825 ml 880 ml Balance 825 ml 880 ml IV Total 825 ml 880 ml # Voids 3 # Bowel Movements 1 1 Laboratory Tests 04/26/17 06:25: White Blood Count 5.3, Red Blood Count 3.38L, Hemoglobin 9.9L, Hematocrit 30.3L , Mean Corpuscular Volume 90, Mean Corpuscular Hemoglobin 29.3, Mean Corpuscular Hemoglobin Concent 32.7, Red Cell Distribution Width 16.5H, Platelet Count 187, Mean Platelet Volume 5.4L, Neutrophils (%) (Auto) 71.4, Lymphocytes (%) (Auto) 19.0L, Monocytes (%) (Auto) 7.8, Eosinophils (%) (Auto) 0.5, Basophils (%) (Auto) 1.2, Sodium Level 141, Potassium Level 3.6, Chloride Level 108H, Carbon Dioxide Level 21, Anion Gap 12, Blood Urea Nitrogen 12, Creatinine 1.2, Estimat Glomerular Filtration Rate , Glucose Level 148H, Uric Acid 5.8, Calcium Level 8.3L, Phosphorus Level 3.6, Magnesium Level 1.6L, Total Bilirubin 0.2, Aspartate Amino Transf (AST/SGOT) 20, Alanine Aminotransferase ( ALT/SGPT) 12, Alkaline Phosphatase 67, Total Protein 6.3L, Albumin 2.0L, Globulin 4.3, Albumin/Globulin Ratio 0.5L Height (Feet): 5 Height (Inches): 5.00 Weight (Pounds): 130 General Appearance: no apparent distress Objective no other changes TARIQ MIRZA Apr 26, 2017 14:32
--- NOTE | 2017-04-26 14:48 | Cardiac Electrophysiology PN ---
Assessment/Plan Assessment/Plan 1. Sinus tachycardia due to UTI and sepsis. No evidence of atrial fibrillation. Echocardiogram EF 35-40% 2. History of hypertension, start Coreg 3.125 bid specially in view of cardiomyopathy. 3. History of seizures, on Neurontin. 4. Renal failure. 5. Hyponatremia. Resolved Na 136 6. UTI and sepsis on iv ABx 7. C Dif Colitis on Flagyl and Vanco. Less diarrhea DW RN Subjective Subjective On NMB. Sitter at bedside.Still in isolation for C Diff but diarrhea is better Objective Last 24 Hour Vital Signs Date Time Temp Pulse Resp B/P (MAP) Pulse Ox O2 Delivery O2 Flow Rate FiO2 04/26/17 12:00 96.4 104 20 108/52 98 04/26/17 08:00 97.7 100 20 101/51 96 04/26/17 07:10 98.2 04/26/17 04:00 97.9 104 18 131/66 96 04/26/17 00:00 98.2 109 19 111/50 97 04/25/17 16:00 97.8 103 21 113/55 98 Intake and Output 04/25/17 04/26/17 19:00 07:00 Intake Total 825 ml 880 ml Balance 825 ml 880 ml IV Total 825 ml 880 ml # Voids 3 # Bowel Movements 1 1 Laboratory Tests Test 04/26/17 06:25 White Blood Count 5.3 K/UL (4.8-10.8) Red Blood Count 3.38 M/UL (4.20-5.40) L Hemoglobin 9.9 G/DL (12.0-16.0) L Hematocrit 30.3 % (37.0-47.0) L Mean Corpuscular Volume 90 FL (80-99) Mean Corpuscular Hemoglobin 29.3 PG (27.0-31.0) Mean Corpuscular Hemoglobin Concent 32.7 G/DL (32.0-36.0) Red Cell Distribution Width 16.5 % (11.6-14.8) H Platelet Count 187 K/UL (150-450) Mean Platelet Volume 5.4 FL (6.5-10.1) L Neutrophils (%) (Auto) 71.4 % (45.0-75.0) Lymphocytes (%) (Auto) 19.0 % (20.0-45.0) L Monocytes (%) (Auto) 7.8 % (1.0-10.0) Eosinophils (%) (Auto) 0.5 % (0.0-3.0) Basophils (%) (Auto) 1.2 % (0.0-2.0) Sodium Level 141 MMOL/L (136-145) Potassium Level 3.6 MMOL/L (3.5-5.1) Chloride Level 108 MMOL/L (98-107) H Carbon Dioxide Level 21 MMOL/L (21-32) Anion Gap 12 mmol/L (5-15) Blood Urea Nitrogen 12 mg/dL (7-18) Creatinine 1.2 MG/DL (0.55-1.30) Estimat Glomerular Filtration Rate mL/min (>60) Glucose Level 148 MG/DL (74-106) H Uric Acid 5.8 MG/DL (2.6-7.2) Calcium Level 8.3 MG/DL (8.5-10.1) L Phosphorus Level 3.6 MG/DL (2.5-4.9) Magnesium Level 1.6 MG/DL (1.8-2.4) L Total Bilirubin 0.2 MG/DL (0.2-1.0) Aspartate Amino Transf (AST/SGOT) 20 U/L (15-37) Alanine Aminotransferase (ALT/SGPT) 12 U/L (12-78) Alkaline Phosphatase 67 U/L (46-116) Total Protein 6.3 G/DL (6.4-8.2) L Albumin 2.0 G/DL (3.4-5.0) L Globulin 4.3 g/dL Albumin/Globulin Ratio 0.5 (1.0-2.7) L Objective HEAD AND NECK: No JVD. LUNGS: Coarse rhonchi. CARDIOVASCULAR: Regular S1 and S2. Mildly tachycardic. ABDOMEN: Soft. EXTREMITIES: No pitting edema. PENELOPE CORONA Apr 26, 2017 14:48
[2017-04-26 16:00] VITALS: BP 105/52
--- NOTE | 2017-04-26 17:13 | Pulmonology Progress Note ---
Assessment/Plan Problems: (1) Cervical spine fracture (2) UTI (urinary tract infection) (3) Diabetes mellitus (4) Clostridium difficile diarrhea (5) Hydronephrosis of left kidney (6) Metastatic breast cancer Assessment/Plan no new event doing better MRI pending IV abx check cultures symptomatic treatment check electrolytes pain management palliative care is the best option for the pt Subjective ROS Limited/Unobtainable: No Constitutional: Reports: no symptoms HEENT: Repors: no symptoms Allergies: Coded Allergies: LATEX (Verified Allergy, Unknown, 04/20/17) Objective Last 24 Hour Vital Signs Date Time Temp Pulse Resp B/P (MAP) Pulse Ox O2 Delivery O2 Flow Rate FiO2 04/26/17 16:00 97.9 109 18 105/52 97 04/26/17 12:00 96.4 104 20 108/52 98 04/26/17 08:00 97.7 100 20 101/51 96 04/26/17 07:10 98.2 04/26/17 04:00 97.9 104 18 131/66 96 04/26/17 00:00 98.2 109 19 111/50 97 Intake and Output 04/25/17 04/26/17 19:00 07:00 Intake Total 825 ml 880 ml Balance 825 ml 880 ml IV Total 825 ml 880 ml # Voids 3 # Bowel Movements 1 1 General Appearance: WD/WN HEENT: normocephalic Respiratory/Chest: chest wall non-tender, lungs clear Breasts: no masses Cardiovascular: normal rate Abdomen: normal bowel sounds, no organomegaly Extremities: no cyanosis Skin: no lesions Neurologic/Psychiatric: no motor/sensory deficits Laboratory Tests 04/26/17 06:25: White Blood Count 5.3, Red Blood Count 3.38L, Hemoglobin 9.9L, Hematocrit 30.3L , Mean Corpuscular Volume 90, Mean Corpuscular Hemoglobin 29.3, Mean Corpuscular Hemoglobin Concent 32.7, Red Cell Distribution Width 16.5H, Platelet Count 187, Mean Platelet Volume 5.4L, Neutrophils (%) (Auto) 71.4, Lymphocytes (%) (Auto) 19.0L, Monocytes (%) (Auto) 7.8, Eosinophils (%) (Auto) 0.5, Basophils (%) (Auto) 1.2, Sodium Level 141, Potassium Level 3.6, Chloride Level 108H, Carbon Dioxide Level 21, Anion Gap 12, Blood Urea Nitrogen 12, Creatinine 1.2, Estimat Glomerular Filtration Rate , Glucose Level 148H, Uric Acid 5.8, Calcium Level 8.3L, Phosphorus Level 3.6, Magnesium Level 1.6L, Total Bilirubin 0.2, Aspartate Amino Transf (AST/SGOT) 20, Alanine Aminotransferase ( ALT/SGPT) 12, Alkaline Phosphatase 67, Total Protein 6.3L, Albumin 2.0L, Globulin 4.3, Albumin/Globulin Ratio 0.5L Current Medications Medications (Trade) Dose Ordered Sig/Stefan Route PRN Reason Start Time Stop Time Status Last Admin Dose Admin Acetaminophen (Tylenol) 650 mg Q8HR ORAL 04/25/17 11:00 05/25/17 10:59 04/26/17 13:35 Carvedilol (Coreg) 3.125 mg EVERY 12 HOURS ORAL 04/26/17 21:00 05/26/17 20:59 Ceftriaxone Sodium 1 gm/ Dextrose 55 ml @ 110 mls/hr Q24H IVPB 04/21/17 21:00 04/28/17 20:59 04/25/17 21:59 Dextrose (Dextrose 50%) STAT PRN IV Hypoglycemia 04/21/17 17:30 05/21/17 17:29 Dextrose/Sodium Chloride 1,000 ml @ 75 mls/hr [id number] IV 04/24/17 13:00 05/24/17 12:59 04/26/17 15:47 Enoxaparin Sodium (Lovenox) 60 mg Q12HR SUBQ 04/25/17 21:00 05/24/17 08:59 04/26/17 08:24 Famotidine (Pepcid) 20 mg BID ORAL 04/25/17 18:00 05/25/17 08:59 04/26/17 17:00 Gabapentin (Neurontin) 100 mg TID ORAL 04/25/17 13:00 05/21/17 08:59 04/26/17 17:00 Insulin Aspart (NovoLOG) BEFORE MEALS AND HS SUBQ 04/21/17 21:00 05/21/17 06:29 04/26/17 11:42 Magnesium Sulfate 100 ml @ 100 mls/hr Q1H IVPB 04/26/17 15:00 04/26/17 18:59 1/25/18 16:55 Menthol/Methyl Salicylate (Bengay) 1 applic Q6H PRN TOPIC BACK PAIN 04/23/17 18:00 05/23/17 17:59 04/24/17 13:05 Metronidazole (Flagyl) 500 mg Q8HR ORAL 04/22/17 14:00 04/29/17 13:59 04/26/17 13:34 Ondansetron HCl (Zofran) 4 mg Q6H PRN IVP Nausea & Vomiting 04/21/17 17:30 05/21/17 17:29 04/24/17 07:29 Paroxetine HCl (Paxil) 10 mg DAILY ORAL 04/22/17 09:00 05/21/17 08:59 04/26/17 08:23 Phenytoin (Dilantin) 400 mg BEDTIME ORAL 04/23/17 21:00 05/21/17 03:29 04/25/17 22:00 Tramadol HCl (Ultram) 50 mg Q4H PRN ORAL Moderate Breakthru Pain (5-7) 04/21/17 17:30 04/28/17 17:29 04/25/17 08:44 Vancomycin HCl (Vancomycin) 125 mg FOUR TIMES A DAY ORAL 04/24/17 15:00 05/01/17 14:59 04/26/17 17:01 MOJGAN NAPOLES Apr 26, 2017 17:13
--- NOTE | 2017-04-26 19:07 | Internal Med Progress Note ---
Subjective Date of Service: Apr 26, 2017 Physician Name Lalo Amaya Attending Physician Keon Mixon MD Current Medications Medications (Trade) Dose Ordered Sig/Stefan Route PRN Reason Start Time Stop Time Status Last Admin Dose Admin Acetaminophen (Tylenol) 650 mg Q8HR ORAL 04/25/17 11:00 05/25/17 10:59 04/26/17 13:35 Carvedilol (Coreg) 3.125 mg EVERY 12 HOURS ORAL 04/26/17 21:00 05/26/17 20:59 Ceftriaxone Sodium 1 gm/ Dextrose 55 ml @ 110 mls/hr Q24H IVPB 04/21/17 21:00 04/28/17 20:59 04/25/17 21:59 Dextrose (Dextrose 50%) STAT PRN IV Hypoglycemia 04/21/17 17:30 05/21/17 17:29 Dextrose/Sodium Chloride 1,000 ml @ 75 mls/hr [id number] IV 04/24/17 13:00 05/24/17 12:59 04/26/17 15:47 Enoxaparin Sodium (Lovenox) 60 mg Q12HR SUBQ 04/25/17 21:00 05/24/17 08:59 04/26/17 08:24 Famotidine (Pepcid) 20 mg BID ORAL 04/25/17 18:00 05/25/17 08:59 04/26/17 17:00 Gabapentin (Neurontin) 100 mg TID ORAL 04/25/17 13:00 05/21/17 08:59 04/26/17 17:00 Insulin Aspart (NovoLOG) BEFORE MEALS AND HS SUBQ 04/21/17 21:00 05/21/17 06:29 04/26/17 17:34 Menthol/Methyl Salicylate (Bengay) 1 applic Q6H PRN TOPIC BACK PAIN 04/23/17 18:00 05/23/17 17:59 04/24/17 13:05 Metronidazole (Flagyl) 500 mg Q8HR ORAL 04/22/17 14:00 04/29/17 13:59 04/26/17 13:34 Ondansetron HCl (Zofran) 4 mg Q6H PRN IVP Nausea & Vomiting 04/21/17 17:30 05/21/17 17:29 04/24/17 07:29 Paroxetine HCl (Paxil) 10 mg DAILY ORAL 04/22/17 09:00 05/21/17 08:59 04/26/17 08:23 Phenytoin (Dilantin) 400 mg BEDTIME ORAL 04/23/17 21:00 05/21/17 03:29 04/25/17 22:00 Tramadol HCl (Ultram) 50 mg Q4H PRN ORAL Moderate Breakthru Pain (5-7) 04/21/17 17:30 04/28/17 17:29 04/25/17 08:44 Vancomycin HCl (Vancomycin) 125 mg FOUR TIMES A DAY ORAL 04/24/17 15:00 05/01/17 14:59 04/26/17 17:01 Allergies: Coded Allergies: LATEX (Verified Allergy, Unknown, 04/20/17) ROS Limited/Unobtainable: Yes Subjective 87 YO F admitted with abdominal paina nd fever. Now UTI and sepsis. Also C.Diff positive. Cover for Int Med-Dr Mixon. Objective Last Vital Signs Date Time Temp Pulse Resp B/P (MAP) Pulse Ox O2 Delivery O2 Flow Rate FiO2 04/26/17 16:00 97.9 109 18 105/52 97 04/25/17 00:00 Room Air Laboratory Tests Test 04/26/17 06:25 White Blood Count 5.3 K/UL (4.8-10.8) Red Blood Count 3.38 M/UL (4.20-5.40) L Hemoglobin 9.9 G/DL (12.0-16.0) L Hematocrit 30.3 % (37.0-47.0) L Mean Corpuscular Volume 90 FL (80-99) Mean Corpuscular Hemoglobin 29.3 PG (27.0-31.0) Mean Corpuscular Hemoglobin Concent 32.7 G/DL (32.0-36.0) Red Cell Distribution Width 16.5 % (11.6-14.8) H Platelet Count 187 K/UL (150-450) Mean Platelet Volume 5.4 FL (6.5-10.1) L Neutrophils (%) (Auto) 71.4 % (45.0-75.0) Lymphocytes (%) (Auto) 19.0 % (20.0-45.0) L Monocytes (%) (Auto) 7.8 % (1.0-10.0) Eosinophils (%) (Auto) 0.5 % (0.0-3.0) Basophils (%) (Auto) 1.2 % (0.0-2.0) Sodium Level 141 MMOL/L (136-145) Potassium Level 3.6 MMOL/L (3.5-5.1) Chloride Level 108 MMOL/L (98-107) H Carbon Dioxide Level 21 MMOL/L (21-32) Anion Gap 12 mmol/L (5-15) Blood Urea Nitrogen 12 mg/dL (7-18) Creatinine 1.2 MG/DL (0.55-1.30) Estimat Glomerular Filtration Rate mL/min (>60) Glucose Level 148 MG/DL (74-106) H Uric Acid 5.8 MG/DL (2.6-7.2) Calcium Level 8.3 MG/DL (8.5-10.1) L Phosphorus Level 3.6 MG/DL (2.5-4.9) Magnesium Level 1.6 MG/DL (1.8-2.4) L Total Bilirubin 0.2 MG/DL (0.2-1.0) Aspartate Amino Transf (AST/SGOT) 20 U/L (15-37) Alanine Aminotransferase (ALT/SGPT) 12 U/L (12-78) Alkaline Phosphatase 67 U/L (46-116) Total Protein 6.3 G/DL (6.4-8.2) L Albumin 2.0 G/DL (3.4-5.0) L Globulin 4.3 g/dL Albumin/Globulin Ratio 0.5 (1.0-2.7) L Intake and Output 04/25/17 04/26/17 19:00 07:00 Intake Total 825 ml 880 ml Balance 825 ml 880 ml IV Total 825 ml 880 ml # Voids 3 # Bowel Movements 1 1 Objective General Appearance: WD/WN, no apparent distress, alert EENT: PERRL/EOMI, normal ENT inspection, TMs normal Neck: non-tender, normal alignment, supple, normal inspection Cardiovascular: normal peripheral pulses, normal rate, regular rhythm, no gallop/murmur, no JVD Respiratory/Chest: chest wall non-tender, lungs clear, normal breath sounds, no respiratory distress, no accessory muscle use Abdomen: normal bowel sounds, soft, no organomegaly, no mass, decreased bowel sounds, tender Extremities: normal range of motion, non-tender Neurologic: production illustrator II-XII grossly normal, no motor/sensory deficits Skin: normal pigmentation, warm/dry Assessment/Plan Problem List: (1) Neck pain Assessment & Plan: History of cervical spine fracture. Currently in C-collar. Await cervical spine xray (2) Fever (3) Nausea & vomiting Assessment & Plan: Continue zofran prn (4) Diabetes mellitus Assessment & Plan: Continue novolog sliding scale. (5) Hydronephrosis of left kidney Assessment & Plan: Await nephrology consult. (6) Seizure disorder Assessment & Plan: Continue dialntin (7) Clostridium difficile diarrhea Assessment & Plan: Continue oral vanco Day #2/14 (8) UTI (urinary tract infection) Assessment & Plan: E. Coli. Continue ceftriaxone. (9) Sepsis Assessment & Plan: E.Coli. See ID consult. Cont IV ceftriaxone for now. (10) Metastatic breast cancer Assessment & Plan: Currently on chemotherapy once per month (11) Abdominal pain (12) Cervical spine fracture Assessment & Plan: C3 and odontoid-see CT result LALO AMAYA Apr 26, 2017 19:07
[2017-04-26 20:00] VITALS: BP 111/47
[2017-04-26] MEDS: cefTRIAXone 1 GM in D5W 55 ML IVPB SCH (20:39)
[2017-04-26] MEDS: Phenytoin Susp 100mg/4ml ORAL SCH (20:47)
[2017-04-27] VITALS: BP 105/41
[2017-04-27 04:00] VITALS: BP 114/64
[2017-04-27 06:29] LABS: BASOPHILS % (AUTO) 0.8 % (0.0-2.0); EOSINOPHILS % (AUTO) 0.5 % (0.0-3.0); HEMATOCRIT 29.3 % (37.0-47.0); HEMOGLOBIN 9.8 G/DL (12.0-16.0); LYMPHOCYTES % (AUTO) 10.6 % (20.0-45.0); MEAN CORPUSCULAR VOLUME 90 FL (80-99); MONOCYTES % (AUTO) 5.9 % (1.0-10.0); NEUTROPHILS % (AUTO) 82.2 % (45.0-75.0); PLATELET COUNT 216 K/UL (150-450); RED BLOOD COUNT 3.24 M/UL (4.20-5.40); RED CELL DISTRIBUTION WIDTH 16.1 % (11.6-14.8); WHITE BLOOD COUNT 7.3 K/UL (4.8-10.8)
[2017-04-27] MEDS: metroNIDAZOLE 500mg tab ORAL SCH ×2 (06:31→13:13)
[2017-04-27] MEDS: NovoLOG Insulin Flexpen SUBQ SCH ×2 (06:36→12:03)
[2017-04-27 07:16] LABS: ANION GAP 12 mmol/L (5-15); BLOOD UREA NITROGEN 10 mg/dL (7-18); CALCIUM 8.2 MG/DL (8.5-10.1); CARBON DIOXIDE 21 MMOL/L (21-32); CHLORIDE 106 MMOL/L (98-107); CREATININE 1.2 MG/DL (0.55-1.30); POTASSIUM 3.8 MMOL/L (3.5-5.1); SODIUM 139 MMOL/L (136-145)
[2017-04-27 08:00] VITALS: BP 114/51
[2017-04-27] MEDS: PARoxetine 10mg tab ORAL SCH (09:07)
[2017-04-27] MEDS: D5 1/2NS 1,000 ML IV SCH (09:07)
[2017-04-27] MEDS: Enoxaparin 60mg Inj SUBQ SCH (09:10)
[2017-04-27] MEDS: Vancomycin oral 125mg/2.5ml ORAL SCH ×2 (09:16→13:13)
--- NOTE | 2017-04-27 11:19 | Infectious Diseases Prog Note ---
Assessment/Plan Assessment/Plan ASSESSMENT: SP low-grade fever Leukopenia, SP Clostridium difficile colitis Diarrhea improving Escherichia coli urinary tract infection. 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 pneumonia (the patient has increase of cough recently) Chest x-ray, bilateral interstitial disease. Diabetes. Hypertension. Seizure disorder. 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 Abdominal CT, hyperdense lesion in left lower lobe. PLAN: continue the patient on Rocephin day # 7 / ( upon DC will change to Cipro ) , Flagyl day # 6/ , oral vancomycin d # 07/10 Monitor CBC. Monitor BMP Monitor chest x-ray Uro following Subjective Constitutional: Denies: no symptoms, fever, chills, fatigue, anorexia, drenching sweats, other Allergies: Coded Allergies: LATEX (Verified Allergy, Unknown, 04/20/17) Subjective confuse Objective Vital Signs Last 24 Hour Vital Signs Date Time Temp Pulse Resp B/P (MAP) Pulse Ox O2 Delivery O2 Flow Rate FiO2 04/27/17 09:07 95 114/51 04/27/17 09:05 Room Air 04/27/17 08:00 97.2 95 20 114/51 97 04/27/17 07:38 97.2 04/27/17 04:00 97.9 105 18 114/64 97 04/27/17 00:00 96.8 99 18 105/41 98 04/26/17 20:48 108 102/47 04/26/17 20:00 98.5 108 20 111/47 98 04/26/17 16:00 97.9 109 18 105/52 97 04/26/17 12:00 96.4 104 20 108/52 98 Height (Feet): 5 Height (Inches): 5.00 Weight (Pounds): 130 HEENT: atraumatic Respiratory/Chest: no respiratory distress Cardiovascular: normal rate Abdomen: no organomegaly Laboratory Tests Test 04/27/17 04:20 White Blood Count 7.3 K/UL (4.8-10.8) Red Blood Count 3.24 M/UL (4.20-5.40) L Hemoglobin 9.8 G/DL (12.0-16.0) L Hematocrit 29.3 % (37.0-47.0) L Mean Corpuscular Volume 90 FL (80-99) Mean Corpuscular Hemoglobin 30.1 PG (27.0-31.0) Mean Corpuscular Hemoglobin Concent 33.3 G/DL (32.0-36.0) Red Cell Distribution Width 16.1 % (11.6-14.8) H Platelet Count 216 K/UL (150-450) Mean Platelet Volume 5.7 FL (6.5-10.1) L Neutrophils (%) (Auto) 82.2 % (45.0-75.0) H Lymphocytes (%) (Auto) 10.6 % (20.0-45.0) L Monocytes (%) (Auto) 5.9 % (1.0-10.0) Eosinophils (%) (Auto) 0.5 % (0.0-3.0) Basophils (%) (Auto) 0.8 % (0.0-2.0) Sodium Level 139 MMOL/L (136-145) Potassium Level 3.8 MMOL/L (3.5-5.1) Chloride Level 106 MMOL/L (98-107) Carbon Dioxide Level 21 MMOL/L (21-32) Anion Gap 12 mmol/L (5-15) Blood Urea Nitrogen 10 mg/dL (7-18) Creatinine 1.2 MG/DL (0.55-1.30) Estimat Glomerular Filtration Rate mL/min (>60) Glucose Level 151 MG/DL (74-106) H Calcium Level 8.2 MG/DL (8.5-10.1) L Current Medications Medications (Trade) Dose Ordered Sig/Stefan Route PRN Reason Start Time Stop Time Status Last Admin Dose Admin Acetaminophen (Tylenol) 650 mg Q8HR ORAL 04/25/17 11:00 05/25/17 10:59 04/27/17 06:39 Carvedilol (Coreg) 3.125 mg EVERY 12 HOURS ORAL 04/26/17 21:00 05/26/17 20:59 04/27/17 09:07 Ceftriaxone Sodium 1 gm/ Dextrose 55 ml @ 110 mls/hr Q24H IVPB 04/21/17 21:00 04/28/17 20:59 04/26/17 20:39 Dextrose (Dextrose 50%) STAT PRN IV Hypoglycemia 04/21/17 17:30 05/21/17 17:29 Dextrose/Sodium Chloride 1,000 ml @ 75 mls/hr [id number] IV 04/24/17 13:00 05/24/17 12:59 04/27/17 09:07 Enoxaparin Sodium (Lovenox) 60 mg Q12HR SUBQ 04/25/17 21:00 05/24/17 08:59 04/27/17 09:10 Famotidine (Pepcid) 20 mg BID ORAL 04/25/17 18:00 05/25/17 08:59 04/27/17 09:07 Gabapentin (Neurontin) 100 mg TID ORAL 04/25/17 13:00 05/21/17 08:59 04/27/17 09:07 Insulin Aspart (NovoLOG) BEFORE MEALS AND HS SUBQ 04/21/17 21:00 05/21/17 06:29 04/27/17 06:36 Menthol/Methyl Salicylate (Bengay) 1 applic Q6H PRN TOPIC BACK PAIN 04/23/17 18:00 05/23/17 17:59 04/24/17 13:05 Metronidazole (Flagyl) 500 mg Q8HR ORAL 04/22/17 14:00 04/29/17 13:59 04/27/17 06:31 Ondansetron HCl (Zofran) 4 mg Q6H PRN IVP Nausea & Vomiting 04/21/17 17:30 05/21/17 17:29 04/24/17 07:29 Paroxetine HCl (Paxil) 10 mg DAILY ORAL 04/22/17 09:00 05/21/17 08:59 04/27/17 09:07 Phenytoin (Dilantin) 400 mg BEDTIME ORAL 04/23/17 21:00 05/21/17 03:29 04/26/17 20:47 Tramadol HCl (Ultram) 50 mg Q4H PRN ORAL Moderate Breakthru Pain (5-7) 04/21/17 17:30 04/28/17 17:29 04/25/17 08:44 Vancomycin HCl (Vancomycin) 125 mg FOUR TIMES A DAY ORAL 04/24/17 15:00 05/01/17 14:59 04/27/17 09:16 ASHOK HARVEY M.D. Apr 27, 2017 11:19
--- NOTE | 2017-04-27 11:30 | Nephrology Progress Note ---
Assessment/Plan Problem List: (1) Renal insufficiency (2) Nausea & vomiting (3) Metastatic breast cancer (4) UTI (urinary tract infection) (5) Anemia (6) C. 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 DC planning Subjective ROS Limited/Unobtainable: No Constitutional: Reports: malaise Objective Objective Last 24 Hour Vital Signs Date Time Temp Pulse Resp B/P (MAP) Pulse Ox O2 Delivery O2 Flow Rate FiO2 04/27/17 09:07 95 114/51 04/27/17 09:05 Room Air 04/27/17 08:00 97.2 95 20 114/51 97 04/27/17 07:38 97.2 04/27/17 04:00 97.9 105 18 114/64 97 04/27/17 00:00 96.8 99 18 105/41 98 04/26/17 20:48 108 102/47 04/26/17 20:00 98.5 108 20 111/47 98 04/26/17 16:00 97.9 109 18 105/52 97 04/26/17 12:00 96.4 104 20 108/52 98 Intake and Output 04/26/17 04/27/17 19:00 07:00 Intake Total 150 ml 205 ml Balance 150 ml 205 ml IV Total 150 ml 205 ml # Voids 3 3 # Bowel Movements 1 3 Laboratory Tests 04/27/17 04:20: White Blood Count 7.3, Red Blood Count 3.24L, Hemoglobin 9.8L, Hematocrit 29.3L , Mean Corpuscular Volume 90, Mean Corpuscular Hemoglobin 30.1, Mean Corpuscular Hemoglobin Concent 33.3, Red Cell Distribution Width 16.1H, Platelet Count 216, Mean Platelet Volume 5.7L, Neutrophils (%) (Auto) 82.2H, Lymphocytes (%) (Auto) 10.6L, Monocytes (%) (Auto) 5.9, Eosinophils (%) (Auto) 0.5, Basophils (%) (Auto) 0.8, Sodium Level 139, Potassium Level 3.8, Chloride Level 106, Carbon Dioxide Level 21, Anion Gap 12, Blood Urea Nitrogen 10, Creatinine 1.2, Estimat Glomerular Filtration Rate , Glucose Level 151H, Calcium Level 8.2L Height (Feet): 5 Height (Inches): 5.00 Weight (Pounds): 130 General Appearance: no apparent distress Objective no other changes TARIQ MIRZA Apr 27, 2017 11:30
[2017-04-27 12:00] VITALS: BP 126/53
[2017-04-27] MEDS ORDERED: CIPRO250 MG ORAL (12:18)
[2017-04-27] MEDS ORDERED: METRONIDAZOLE500 MG ORAL (12:18)
[2017-04-27] MEDS ORDERED: VANCOMYCIN HCL125 MG PO (12:19)
--- NOTE | 2017-04-27 14:35 | Cardiac Electrophysiology PN ---
Assessment/Plan Assessment/Plan 1. Sinus tachycardia due to UTI and sepsis. No evidence of A Fib. Echocardiogram EF 35-40% 2. History of hypertension, Coreg 3.125 bid 3. Cardiomyopathy with EF 35-40%. On Coreg. Add Lisinopril as out patient 4. Renal failure. 5. Hyponatremia. Resolved Na 136 6. UTI and sepsis on iv ABx 7. C Dif Colitis on Flagyl and Vanco. Less diarrhea 7. History of seizures, on Neurontin. DW RN and daughter Subjective Subjective On NMB. Daughter and resident care aid at bedside Objective Last 24 Hour Vital Signs Date Time Temp Pulse Resp B/P (MAP) Pulse Ox O2 Delivery O2 Flow Rate FiO2 04/27/17 14:11 97.2 04/27/17 12:00 97.3 97 20 126/53 97 04/27/17 09:07 95 114/51 04/27/17 09:05 Room Air 04/27/17 08:00 97.2 95 20 114/51 97 04/27/17 04:00 97.9 105 18 114/64 97 04/27/17 00:00 96.8 99 18 105/41 98 04/26/17 20:48 108 102/47 04/26/17 20:00 98.5 108 20 111/47 98 04/26/17 16:00 97.9 109 18 105/52 97 Intake and Output 04/26/17 04/27/17 19:00 07:00 Intake Total 150 ml 205 ml Balance 150 ml 205 ml IV Total 150 ml 205 ml # Voids 3 3 # Bowel Movements 1 3 Laboratory Tests Test 04/27/17 04:20 White Blood Count 7.3 K/UL (4.8-10.8) Red Blood Count 3.24 M/UL (4.20-5.40) L Hemoglobin 9.8 G/DL (12.0-16.0) L Hematocrit 29.3 % (37.0-47.0) L Mean Corpuscular Volume 90 FL (80-99) Mean Corpuscular Hemoglobin 30.1 PG (27.0-31.0) Mean Corpuscular Hemoglobin Concent 33.3 G/DL (32.0-36.0) Red Cell Distribution Width 16.1 % (11.6-14.8) H Platelet Count 216 K/UL (150-450) Mean Platelet Volume 5.7 FL (6.5-10.1) L Neutrophils (%) (Auto) 82.2 % (45.0-75.0) H Lymphocytes (%) (Auto) 10.6 % (20.0-45.0) L Monocytes (%) (Auto) 5.9 % (1.0-10.0) Eosinophils (%) (Auto) 0.5 % (0.0-3.0) Basophils (%) (Auto) 0.8 % (0.0-2.0) Sodium Level 139 MMOL/L (136-145) Potassium Level 3.8 MMOL/L (3.5-5.1) Chloride Level 106 MMOL/L (98-107) Carbon Dioxide Level 21 MMOL/L (21-32) Anion Gap 12 mmol/L (5-15) Blood Urea Nitrogen 10 mg/dL (7-18) Creatinine 1.2 MG/DL (0.55-1.30) Estimat Glomerular Filtration Rate mL/min (>60) Glucose Level 151 MG/DL (74-106) H Calcium Level 8.2 MG/DL (8.5-10.1) L Objective HEAD AND NECK: No JVD. LUNGS: Coarse rhonchi. CARDIOVASCULAR: Regular S1 and S2. Mildly tachycardic. ABDOMEN: Soft. EXTREMITIES: No pitting edema. PENELOPE CORONA Apr 27, 2017 14:34
[2017-04-27] MEDS ORDERED: D5 1/2NS 1000ml IV ONE (15:07)
[2017-04-27] MEDS ORDERED: Tubing IV Secondary IV ONE (15:15)
--- NOTE | 2017-04-27 16:18 | Pulmonology Progress Note ---
Assessment/Plan Problems: (1) Cervical spine fracture (2) UTI (urinary tract infection) (3) Diabetes mellitus (4) Clostridium difficile diarrhea (5) Hydronephrosis of left kidney (6) Metastatic breast cancer Assessment/Plan no new event doing better MRI pending IV abx check cultures symptomatic treatment check electrolytes pain management palliative care is the best option for the pt dc home with close f/u Subjective ROS Limited/Unobtainable: No HEENT: Repors: no symptoms Respiratory: Reports: no symptoms Allergies: Coded Allergies: LATEX (Verified Allergy, Unknown, 04/20/17) Objective Last 24 Hour Vital Signs Date Time Temp Pulse Resp B/P (MAP) Pulse Ox O2 Delivery O2 Flow Rate FiO2 04/27/17 14:11 97.2 04/27/17 12:00 97.3 97 20 126/53 97 04/27/17 09:07 95 114/51 04/27/17 09:05 Room Air 04/27/17 08:00 97.2 95 20 114/51 97 04/27/17 04:00 97.9 105 18 114/64 97 04/27/17 00:00 96.8 99 18 105/41 98 04/26/17 20:48 108 102/47 04/26/17 20:00 98.5 108 20 111/47 98 Intake and Output 04/26/17 04/27/17 19:00 07:00 Intake Total 150 ml 205 ml Balance 150 ml 205 ml IV Total 150 ml 205 ml # Voids 3 3 # Bowel Movements 1 3 General Appearance: cachetic Respiratory/Chest: chest wall non-tender, lungs clear Breasts: no masses Cardiovascular: normal peripheral pulses Abdomen: normal bowel sounds, soft, non tender Genitourinary: normal external genitalia Extremities: no cyanosis Skin: no ulcers Neurologic/Psychiatric: abnormal gait, responsive Lymphatic: no neck adenopathy Laboratory Tests 04/27/17 04:20: White Blood Count 7.3, Red Blood Count 3.24L, Hemoglobin 9.8L, Hematocrit 29.3L , Mean Corpuscular Volume 90, Mean Corpuscular Hemoglobin 30.1, Mean Corpuscular Hemoglobin Concent 33.3, Red Cell Distribution Width 16.1H, Platelet Count 216, Mean Platelet Volume 5.7L, Neutrophils (%) (Auto) 82.2H, Lymphocytes (%) (Auto) 10.6L, Monocytes (%) (Auto) 5.9, Eosinophils (%) (Auto) 0.5, Basophils (%) (Auto) 0.8, Sodium Level 139, Potassium Level 3.8, Chloride Level 106, Carbon Dioxide Level 21, Anion Gap 12, Blood Urea Nitrogen 10, Creatinine 1.2, Estimat Glomerular Filtration Rate , Glucose Level 151H, Calcium Level 8.2L MOJGAN NAPOLES Apr 27, 2017 16:18
--- NOTE | 2017-04-30 11:36 | Discharge Summary ---
Discharge Summary Hospital Course Date of Admission Apr 20, 2017 at 23:17 Date of Discharge Apr 27, 2017 at 15:16 Admitting Diagnosis abdominal pain/sepsis SAVANNA Franklin is a 87 year old female who was admitted on Apr 20, 2017 at 23:17 for Abdominal Pain/Sepsis Hospital Course dc summary #[id number] Discharge Medications Continued Medications: Ciprofloxacin HCl (Cipro) 250 Mg Tablet 500 MG ORAL BID for 7 Days, TAB Enoxaparin* (Lovenox*) 60 Mg/0.6 Ml Inj 60 MG SUBQ DAILY, #30 EA 0 Refills Gabapentin* (Gabapentin*) 100 Mg Capsule 100 MG ORAL BID, CAP Metformin Hcl* (Metformin Hcl*) 500 Mg Tablet 500 MG ORAL TWICE A DAY, TAB Metronidazole* (Flagyl*) 500 Mg Tablet 500 MG ORAL THREE TIMES A DAY for 10 Days, #21 TAB 0 Refills Ondansetron Hcl* (Zofran*) 8 Mg Tablet 8 MG ORAL Q6H PRN for Nausea & Vomiting, #4 TAB 0 Refills Paroxetine Hcl* (Paroxetine Hcl*) 12.5 Mg Tab.er.24h 20 MG ORAL DAILY, TAB Phenytoin Sodium Extended* (Phenytoin Sodium Extended*) 100 Mg Capsule 400 MG ORAL BEDTIME, #60 CAP 0 Refills Tramadol Hcl* (Ultram*) 50 Mg Tablet 50 MG ORAL BID PRN for For Pain, #30 TAB 0 Refills Vancomycin Hcl (Vancomycin Hcl) 125 Mg Capsule 125 MG PO Q6HR for 10 Days, CAP Discharge Condition Upon Discharge: stable Discharge Disposition Patient was discharged to Home with Home Health Services Discharge Diagnoses: Sascha (Clifton)Betsy NP Apr 30, 2017 11:36
--- NOTE | 2017-05-01 02:45 | Discharge Summary 2 SIG ---
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 Per family member and caregiver, the patient was sick for few days with fever, chills, abdominal discomfort. In addition, reported productive cough with yellow phlegm, but no wheezing and no hemoptysis. Last chemo was about a month ago. Workup in the emergency department revealed fever- 100.8, tachycardia, and borderline hypotension. EKG revealed sinus tachycardia. No acute ischemic changes. Troponin was negative. No leukocytosis. Lactic acid -2.0. Evidence of renal insufficiency with BUN 53 and creatinine 2.3. Glucose -238. Sodium- 129. Urinalysis was grossly positive for urinary tract infection. Chest x-ray revealed bilateral interstitial disease possibly acute component. Pro BNP-3695. Hemoglobin -11.5 and hematocrit- 34.6. CT of the abdomen and pelvis revealed hypodense lesion in the left lower lobe, difficult to characterize without IV contrast. 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 Reflux was also possible as an etiology if it is a complete duplication. 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 HOSPITAL COURSE: The patient was admitted. ID specialist, Nephrology, Cardiology, and Neurology consults were requested. The patient initially was on telemetry floor. Patient was started on IV fluids and empiric antibiotics. Urine culture revealed E. coli. Blood culture revealed E. coli. Stool was positive for Clostridium difficile. ID directed antibiotic management. Upon discharge , all antibiotics were converted to oral to complete the course of treatment: Cipro for urinary tract infection as well as the Flagyl and vancomycin for C. diff colitis to be continued upon discharge. Renal parameters and electrolytes were closely monitored and corrected as needed. The patient was on the IV hydration. Automotive [employer] Clerk closely followed. Nephrotoxics were avoided. Renal ultrasound revealed hydronephrotic lower pole of duplex left renal collecting system described on recent CT scan, likely congenital. 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 Urology consult was requested for evaluation. 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 Urologist did not recommend any further genitourinary intervention. Automotive [employer] Clerk closely followed. Creatinine trending down from initial 2.3 down to 1.2. According to electrophysiology technologist, the patient had acute renal failure with possible underlying chronic insufficiency. Dehydration was likely secondary to intractable vomiting and resolved. Hemoglobin and hematocrit were closely monitored. Anemia workup was consistent with anemia of chronic disease. Stool for OB was negative. Hemoglobin and hematocrit were closely monitored and remained at the baseline. No need for transfusion. Seizure precautions maintained. The patient was continued to be on anticonvulsant regimen with Dilantin. DVT prophylaxis was provided. The patient was working with physical and occupational therapists. The patient was initially hypotensive, then normotensive . Echocardiogram revealed ejection fraction 35% to 40%. The patient was started on beta-janeth and VAL inhibitor. Troponin x2 were negative. EKG revealed no acute ischemic changes. No evidence of acute myocardial infarction. The patient initially had sinus tachycardia likely due to the infectious process and dehydration, both resolved. Blood sugar was managed with sliding scale of insulin. Hemoglobin A1c -5.8 at goal. Metformin was on hold due to the elevated creatinine. Sliding scale of insulin was on board for as needed use, but blood sugar remained stable. Bowel regimen was instituted. DVT and gastrointestinal prophylaxis provided. The patient was slowly started on diet as tolerated. Antiemetic were on the board as needed. Nutritional supplement provided as per supervisor testing recommendation. Sodium up to 139, hyponatremia resolved. Cervical spine x-ray showed evidence of odontoid fracture deformity. The patient was wearing cervical collar. The patient subsequently undergone CT of the C-spine, which revealed posterior displaced base fracture with suggested appearance of subacute fracture. Possible nearly completely healed C3 spinous process fracture. No acute bony trauma otherwise. The patient was stable for discharge home with home health services on oral antibiotics as per ID recommendations. FINAL DIAGNOSES: 1. Sepsis. 2. Bacteremia with Escherichia coli due to UTI. 3. Urinary tract infection with Escherichia coli. 4. Clostridium difficile colitis. 5. Possible pneumonia. 6. Hyponatremia, resolved. 7. Acute renal failure on chronic renal insufficiency. 8. Dehydration secondary to intractable vomiting, -resolved. 9. Acute renal failure with possible underlying chronic renal insufficiency - resolved. 10. Seizure disorder. 11. 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 12. Diabetes mellitus. 13. Hypotension with history of hypertension. 14. Cardiomyopathy with ejection fraction 35% to 40%. 15. Anemia of chronic disease. 16. Left lobe liver lesion. 17. Left kidney hydronephrosis, congenital. 18. History of cervical spine fracture. 19. Malnutrition. DISCHARGE MEDICATIONS: See medication reconciliation list. DISCHARGE INSTRUCTIONS: The patient was discharged home with home health services. Follow up with primary medical doctor. Keon Mixon M.D. Betsy MosqueraHudson Valley HospitalVictor Manuel N.PRyan DR: MONICA JOB#: [id number] CC: [id number]
--- NOTE | 2017-05-02 17:46 | Cardiology Report ---
APPROVED REPORT EKG Measurement Heart [id number] ID [id number] Sinus tachycardia Otherwise normal ECG
== END 2017-04-27 15:16 | disposition home health service (06) | DRG 872 ==
LOC: EDSEX 20:47 → EDUNIT# 20:47 → EDBD 20:47 → EMR 23:15 → 2E 23:17 → EDBEDREQ 23:37 → ENRESERV 04-21 00:30 → EDBEDREQ 04-21 00:33 → 4W 04-21 17:30
DX: A41.9 Sepsis, unspecified organism (principal); N17.9 Acute kidney failure, unspecified; A04.72 Enterocolitis due to Clostridium difficile, not specified as recurrent; C79.31 Secondary malignant neoplasm of brain; E46 Unspecified protein-calorie malnutrition; E11.22 Type 2 diabetes mellitus with diabetic chronic kidney disease; N39.0 Urinary tract infection, site not specified; E86.0 Dehydration; B96.20 Unspecified Escherichia coli [E. coli] as the cause of diseases classified elsewhere; E87.1 Hypo-osmolality and hyponatremia; Q62.0 Congenital hydronephrosis; E11.9 Type 2 diabetes mellitus without complications; D64.9 Anemia, unspecified; I50.9 Heart failure, unspecified; G40.909 Epilepsy, unspecified, not intractable, without status epilepticus; R11.10 Vomiting, unspecified; Z85.3 Personal history of malignant neoplasm of breast; Z90.11 Acquired absence of right breast and nipple; Z91.040 Latex allergy status; Z92.3 Personal history of irradiation; R10.9 Unspecified abdominal pain; I12.9 Hypertensive chronic kidney disease with stage 1 through stage 4 chronic kidney disease, or unspecified chronic kidney disease; N18.9 Chronic kidney disease, unspecified; S12.9XXD Fracture of neck, unspecified, subsequent encounter; Z79.899 Other long term (current) drug therapy; K76.9 Liver disease, unspecified
CPT/HCPCS: 36415; 71045; 72052; 72125; 74176; 76775; 80048; 80053; 80185; 81003; 82270; 82533; 82550; 82607; 82728; 82746; 82962; 82977; 83036; 83540; 83550; 83605; 83690; 83735; 83880; 84100; 84300; 84443; 84484; 84550; 85007; 85025; 85610; 85730; 86140; 87040; 87086; 87181; 87324; 93005; 93306; 99285; C9399; J1815; J2405